=== PATIENT | male | born 1970 | race Caucasian/White ===

== ENCOUNTER 2016-12-11 20:28 | Emergency (ER) ==
[2016-12-11 20:44] LABS: URINE MICRO REVIEW NEEDED? NO; URINE SOURCE VOIDED
[2016-12-11 20:49] LABS: BILIRUBIN URINE NEGATIVE (NEGATIVE); BLOOD URINE TRACE (NEGATIVE); COLOR YELLOW; GLUCOSE URINE 300 mg/dL (NEGATIVE); LEUKOCYTES URINE TRACE (NEGATIVE); NITRITE URINE NEGATIVE (NEGATIVE); PROTEIN URINE 300 mg/dL (NEGATIVE); SP GRAVITY URINE 1.012; TURBIDITY URINE CLEAR (CLEAR); UROBILINOGEN URINE NORMAL (NORMAL)
[2016-12-11 20:50] LABS: UR EPITHELIAL CELLS <10 /HPF (<10); URINE BACTERIA 1+ /HPF; URINE RBC <10 /HPF (<10)
[2016-12-11] MEDS ORDERED: KEFLEX PO ONE (22:14)
[2016-12-11] MEDS ORDERED: PYRIDIUM PO ONE (22:14)
--- NOTE | 2016-12-11 22:16 | PROVIDER DOCUMENTATION ---
HPI-Male Problem - General Chief Complaint: Flank Pain Stated Complaint: KIDNEY PAIN, NAUSEA Time Seen by Provider: 12/11/16 22:04 Source: patient Allergies/Adverse Reactions: Patient Allergies Allergy/AdvReac Type Severity Reaction Status Date / Time No Known Allergies Allergy Verified 12/11/16 22:26 Home Medications: Home Medication List Medication Instructions Recorded Confirmed Last Taken Type Home Meds Unobtainable 12/11/16 12/11/16 Unknown History - History of Present Illness-Male Nature of Presenting Problem: pt has complaned of slowly worsening achy discomfort over both his kidneys over the last 2-3 weeks then developing painful frequent urination. He has felt slightly nauseous without vomiting. No chills or fever. He has some suprapubic discomfort Review of Systems - Adult - REVIEW OF SYSTEMS - ADULT Constitutional: denies: chills, fever Eyes: denies: discharge Ears, Nose, Mouth & Throat: denies: ear pain, sinus problem, throat pain Cardiovascular: denies: chest pain, edema, orthopnea, palpitations, syncope Respiratory: denies: cough, shortness of breath Gastrointestinal: reports: see HPI, nausea. denies: constipation, diarrhea, vomiting Genitourinary: reports: dysuria, frequency, flank pain. denies: discharge, hematuria, incontinence, urinary retention Musculoskeletal: reports: no symptoms reported Integumentary: denies: rash Neurological: denies: headache/migraines, numbness Psychiatric: reports: no symptoms reported Endocrine: reports: no symptoms reported Hematologic/Lymphatic: reports: no symptoms reported Allergic/Immunologic: reports: no symptoms reported All Other Systems: Reviewed and Negative Past History - Adult - PAST MEDICAL HISTORY-ADULT Review of Records: reports: Old Records Reviewed, Nursing Assessment Review, Medications Reviewed, Social history reviewed & non-contributory. - IMMUNIZATION STATUS Childhood Immunizations: See Nurse Assessment Flu Vaccine: See Nurse Assessment - FAMILY HISTORY Family History: reviewed, not pertinent - SOCIAL HISTORY Smoking: non-smoker Substance Use: none/never Living Situation: family Physical Exam-General - PHYSICAL EXAM-ADULT Initial Vital Signs Reviewed: Yes - CONSTITUTIONAL General Appearance: appears well, alert, no apparent distress - EYES Eyes: pink conjunctivae. negative: scleral icterus - HEAD, EARS, NOSE, MOUTH & THROAT HENMT: normocephalic/atraumatic - NECK Neck: non-tender, full range of motion, supple, normal inspection - RESPIRATORY Respiratory: chest non-tender, lungs clear, normal breath sounds, no pleuratic chest pain, no respiratory distress, no accessory muscle use - CARDIOVASCULAR Cardiovascular: regular rate, rhythm, no edema, no murmur - GASTROINTESTINAL (ABDOMEN) Abdominal Exam: normal bowel sounds, non tender, soft, no organomegaly, no pulsatile mass - MUSCULOSKELETAL Back Exam: normal inspection, no vertebral tenderness, CVA tenderness (mild bilat). negative: no CVA tenderness Extremity: normal range of motion, non-tender, normal gait, normal inspection, no pedal edema, no calf tenderness - SKIN Integumentary: normal color, normal turgor, warm/dry - NEUROLOGIC Neurologic: grossly normal, no motor/sensory deficits - PSYCHIATRIC Psych/Mental Status: normal mood/affect, normal thought content, normal thought process, oriented x 3 Progress - PLAN OF CARE/RESULTS Progress/Plan/Lab Results: Laboratory Tests 12/11/16 20:38 Urine Source VOIDED Urine Color YELLOW Urine Turbidity CLEAR Urine pH 6.0 Ur Specific [place] 1.012 Urine Protein 300 A Ur Glucose (Stick) 300 A Ur Ketones (Stick) NEGATIVE Urine Blood TRACE A Urine Nitrite NEGATIVE Urine Bilirubin NEGATIVE Urobilinogen Dipstick NORMAL Urine Leukocytes TRACE A Urine WBC (Auto) 10-20 A Urine RBC (Auto) <10 U Epithel Cells (Auto) <10 Urine Bacteria (Auto) 1+ Orders Category Date Time Status RENAL STONE SEARCH [CT] Stat Exams 12/11/16 21:36 Taken URINALYSIS [URINALYSIS] Stat Lab 12/11/16 20:38 Completed CephALEXIN [Keflex] Med 12/11/16 22:14 Discontinued 500 mg PO NOW ONE Phenazopyridine [Pyridium] Med 12/11/16 22:14 Discontinued 200 mg PO NOW ONE Vital Signs Temp Pulse Resp BP Pulse Ox 12/11/16 22:23 98.8 F 80 18 171/92 98 12/11/16 20:34 98.7 F 91 H 16 152/95 100 No Known Allergies Allergy (Verified 12/11/16 22:26) Home Meds Unobtainable 12/11/16 Laboratory 12/11/16 20:38 Urine Source VOIDED Urine Color YELLOW Urine Turbidity CLEAR Urine pH 6.0 Ur Specific [place] 1.012 Urine Protein 300 A Ur Glucose (Stick) 300 A Ur Ketones (Stick) NEGATIVE Urine Blood TRACE A Urine Nitrite NEGATIVE Urine Bilirubin NEGATIVE Urobilinogen Dipstick NORMAL Urine Leukocytes TRACE A Urine WBC (Auto) 10-20 A Urine RBC (Auto) <10 U Epithel Cells (Auto) <10 Urine Bacteria (Auto) 1+ Departure - Departure Time of Disposition Order: 22:15 DIAGNOSIS: UTI (urinary tract infection) Qualifiers: Urinary tract infection type: site unspecified Hematuria presence: without hematuria Qualified Code(s): N39.0 - Urinary tract infection, site not specified Disposition: HOME 01 Certified Medical Emergency: Emergent Condition: Good Additional Instructions: ED Follow Up Instructions: You have been treated by a care provider in the Emergency Department. These instructions are being provided to you so you can have an understanding of how to care for yourself upon discharge. Upon discharge from the Emergency Department, you are responsible for making arrangements for follow-up care by a physician of your choice. Take all prescribed medications as directed. Return to the Emergency Department immediately for any new or worsening symptoms. You may call the Physician Referral phone number at [phone] to obtain a list of Physicians who are taking new patients. Referrals: None,PCP [Primary Care Provider] - Instructions: Urinary Tract Infection, [id number]
[2016-12-11 22:24] VITALS: BP 171/92
--- NOTE | 2016-12-12 07:58 | Diag Imaging Result Document ---
PROCEDURE NAME: RENAL STONE SEARCH - 12/11/2016 CT ABDOMEN AND PELVIS: A CT dose reduction protocol was used. COMPARISON: None. FINDINGS: There is extensive subcutaneous edema all throughout the lower anterior abdominal body wall. The cause is unclear. Urinary bladder vo are mildly thickened, nonspecific. Bladder inflammation is possible. There are appendectomy changes. There is extensive diverticulosis of the descending and sigmoid colon. No bowel obstruction or inflammation. No radiodense renal stones. No hydronephrosis or hydroureter. There is a small 1 cm left renal cyst. Bony structures are intact. IMPRESSION: 1. Thickened urinary bladder vo which may suggest cystitis. Correlate clinically. 2. Negative for renal stone disease. 3. Significant diverticulosis coli. 4. Significant subcutaneous edema of the anterior body wall. This may suggest cellulitis. Correlate clinically. [facility]
== END 2016-12-11 22:30 | disposition home or self-care (01) ==
LOC: ED 20:28
DX: N39.0 Urinary tract infection, site not specified (principal); R30.0 Dysuria; R35.0 Frequency of micturition; R10.9 Unspecified abdominal pain
CPT/HCPCS: 74176; 81001

== ENCOUNTER 2018-11-19 09:50 | Inpatient (IN) ==
[2018-11-19] MEDS ORDERED: ZOFRAN IV ONE (10:13)
[2018-11-19] MEDS ORDERED: DILAUDID IV ONE (10:13)
[2018-11-19] MEDS ORDERED: APRESOLINE IV ONE (10:18)
[2018-11-19 10:29] LABS: BASO# 0.04 X1000 (0.0-0.2); BASO% 0.4 % (0.0-0.8); EOS# 0.47 X1000 (0.0-0.7); EOS% 5.1 % (0.0-10.0); HEMATOCRIT 29.3 % (42.0-52.0); HEMOGLOBIN 9.5 g/dL (14.0-18.0); IMM GRAN# 0.02 X1000 (0.0-0.04); IMM GRAN% 0.2 % (0.0-0.5); LYMPH# 1.27 X1000 (1.2-3.4); LYMPH% 13.8 % (20.5-51.1); MCH 30.4 PG (27-31); MCHC 32.4 g/dL (33-37); MCV 93.6 FL (81-99); MONO# 0.72 X1000 (0.11-0.59); MONO% 7.8 % (1.7-9.3); MPV 10.9 FL (7.4-10.4); NEUT# 6.69 X1000 (1.4-6.5); NEUT% 72.7 % (42.2-75.2); PLT 244 X1000 (130-400); RBC 3.13 XMIL (4.7-6.1); RDW 16.5 % (11.5-14.5); WBC 9.21 X1000 (4.8-10.8)
[2018-11-19 10:49] LABS: ALB/GLOB RATIO 1.1; ALBUMIN 4.1 g/dL (3.5-5.0); CALCIUM 8.7 mg/dL (8.8-10.2); CREATININE 4.7 mg/dL (0.7-1.2); POTASSIUM 3.9 mmol/L (3.5-5.1); TOTAL BILIRUBIN 0.48 mg/dL (0.20-1.00); TOTAL PROTEIN 7.9 g/dL (6.3-8.3)
--- NOTE | 2018-11-19 11:30 | Diag Imaging Result Doc PS360 ---
EXAM: CT ABDOMEN/PELVIS W/O CONTRAST INDICATION: LLQ pain/tenderness TECHNIQUE: This exam was performed using automated exposure control, adjustment of mA or kV according to patient size, and/or use of iterative reconstruction technique. COMPARISON: 09/16/2018 FINDINGS: There are stable emphysematous changes at the lung bases. There are trace effusions at both lung bases with adjacent atelectasis that is milder than the previous study. The liver, gallbladder, spleen, pancreas, and adrenal glands are unremarkable. There is a stable small cyst at the upper pole of the left kidney. The kidneys are unremarkable, otherwise. The urinary bladder is nondistended. There are focal inflammatory changes and focal wall thickening involving the proximal sigmoid colon that appears to emanate from a cluster of diverticula consistent with diverticulitis. It is in the same location as the previous study but it is not as severe. There is no pericolonic abscess identified and there is no free abdominal gas to indicate perforation. The remainder of the GI tract is essentially unremarkable. IMPRESSION: 1.Sigmoid colonic diverticulitis with no evidence of perforation as detailed above. 2.Other incidental/nonacute findings detailed above. Electronically signed by Sam Post 11/19/2018 11:28 AM
[2018-11-19] MEDS ORDERED: NORVASC PO ONE (12:00)
[2018-11-19] MEDS ORDERED: COREG PO ONE (12:00)
[2018-11-19] MEDS ORDERED: TYLENOL PO PRN (12:07)
[2018-11-19] MEDS ORDERED: ZOFRAN IV PRN (12:07)
[2018-11-19] MEDS ORDERED: MORPHINE IV PRN (12:30)
[2018-11-19] MEDS: PROTONIX IV SCH ×2 (12:35→23:23)
[2018-11-19] MEDS: ZOSYN 2.25 GM in NS 50 ML IV SCH ×2 (12:45→21:46)
[2018-11-19] MEDS: APRESOLINE IV PRN (14:38)
--- NOTE | 2018-11-19 14:45 | PROVIDER DOCUMENTATION ---
This chart was entered by Denisse Blum Scribe, acting as scribe for Manuel Severino CRNP. HPI-Abdominal Pain/GI Problem - General Chief Complaint: Abdominal Pain Stated Complaint: ABD PAIN Time Seen by Provider: 11/19/18 10:04 Source: patient Allergies/Adverse Reactions: Patient Allergies Allergy/AdvReac Type Severity Reaction Status Date / Time No Known Allergies Allergy Verified 08/22/18 04:36 Home Medications: Home Medication List Medication Instructions Recorded Confirmed Last Taken Type Insulin Aspart [Novolog] 30 unit SQ AC 05/30/18 09/17/18 09/15/18 History Insulin Detemir [Levemir] 50 units SQ QHS 05/30/18 09/17/18 09/15/18 History Losartan [Cozaar] 100 mg PO QHS 05/30/18 09/17/18 09/15/18 History Acetaminophen [Tylenol] 650 mg PO Q6H PRN PRN tablet 06/01/18 09/17/18 Unknown Rx Amlodipine [Norvasc] 10 mg PO DAILY #30 tab 09/18/18 Unknown Rx Carvedilol [Coreg] 6.25 mg PO Q12HR #30 tab 09/18/18 Unknown Rx Levofloxacin 500 mg PO Q48H #3 tab 09/18/18 Unknown Rx Metronidazole [Flagyl] 500 mg PO BID #12 tab 09/18/18 Unknown Rx Simethicone Chew [Mylicon] 80 mg PO 4XDAY PRN PRN #12 tab 09/18/18 Unknown Rx - History of Present Illness-ABD Nature of Presenting Problems: 48 yom presents to the ed with LLQ pain and diarrhea x 2 days. He denies fever or any other symptoms and is non-toxic in appearance. Started dialysis today but did not complete due to pain. Abdominal Pain Onset Location: reports: LLQ Pain Radiation: reports: other (suprapubic) Quality of Pain: reports: aching, cramping Severity in ED: reports: moderate Onset/Duration: reports: 2 days ago Timing: reports: still present Activities at Onset: reports: light activity Modifying Factors: improves with: nothing Associated Symptoms: reports: diarrhea, nausea. denies: back/neck pain, chest pain, cough, fever/chills, headaches, muscle aches, syncope, vomiting, weakness Last BM: this morning Dark Stools Present?: reports: none noticed Rectal Bleeding: reports: none # of Diarrhea Episodes: 3 Rectal Pain: reports: none # of Vomiting Episodes: 0 Emesis Description: reports: none Bruising or Bleeding Gums?: No Similar Symptoms Previously?: No Recently seen or treated by another doctor?: No Review of Systems - Adult - REVIEW OF SYSTEMS - ADULT Constitutional: denies: chills, fever Eyes: denies: blurred vision, double vision Ears, Nose, Mouth & Throat: reports: no symptoms reported Cardiovascular: denies: chest pain, palpitations Respiratory: denies: cough, dyspnea on exertion, shortness of breath, wheezing Gastrointestinal: reports: see HPI, abdominal pain, diarrhea, nausea. denies: vomiting Genitourinary: reports: no symptoms reported Musculoskeletal: reports: no symptoms reported Integumentary: reports: no symptoms reported Neurological: denies: dizziness/vertigo, headache/migraines Psychiatric: reports: no symptoms reported Endocrine: reports: no symptoms reported Hematologic/Lymphatic: reports: no symptoms reported Allergic/Immunologic: reports: no symptoms reported All Other Systems: Reviewed and Negative Past History - Adult - PAST MEDICAL HISTORY-ADULT Review of Records: reports: Old Records Reviewed, Nursing Assessment Review, Medications Reviewed, Social history reviewed & non-contributory. Major Childhood Illnesses: reports: denies history Cardiovascular: reports: HTN, hyperlipidemia Respiratory: reports: denies history Gastrointestinal: reports: pancreatitis Genitourinary: reports: dialysis, ESRD, kidney disease Musculoskeletal: reports: denies history Hand Dominance: Right Handed Neurological: reports: denies history Psychiatric: reports: denies history Endocrine/Immune: reports: Diabetes Diabetes Type: Type 2 Other Conditions: reports: denies history - PRIOR SURGERIES/PROCEDURES Surgical/Procedure History: reports: reviewed, not pertinent, appendectomy, hernia repair - IMMUNIZATION STATUS Childhood Immunizations: See Nurse Assessment Flu Vaccine: See Nurse Assessment - FAMILY HISTORY Family History: reviewed, not pertinent - SOCIAL HISTORY Smoking: non-smoker Substance Use: alcohol Alcohol Use Frequency: occasionally Number of drinks per typical drinking period:: 3-4 drinks Living Situation: family Physical Exam-General - PHYSICAL EXAM-ADULT Initial Vital Signs Reviewed: Yes (bp noted 251/107) - CONSTITUTIONAL General Appearance: appears well, alert, no apparent distress. negative: lethargic, slow to respond - EYES Eyes: PERRL/EOMI, pink conjunctivae. negative: sclera injected, scleral icterus , sunken eyes - HEAD, EARS, NOSE, MOUTH & THROAT HENMT: normocephalic/atraumatic, moist mucous membranes, normal ENT inspection - NECK Neck: non-tender, full range of motion, supple, normal inspection - RESPIRATORY Respiratory: chest non-tender, lungs clear, normal breath sounds, no respiratory distress, no accessory muscle use - CARDIOVASCULAR Cardiovascular: normal peripheral pulses, regular rate, rhythm, no gallop, no murmur - GASTROINTESTINAL (ABDOMEN) Abdominal Exam: normal bowel sounds, soft, no pulsatile mass, abnormal bowel sounds, tenderness (LLQ). negative: distended, guarding, rigid, rebound - LYMPHATIC Lymphatic: no adenopathy - MUSCULOSKELETAL Back Exam: normal inspection, no CVA tenderness Extremity: normal range of motion, non-tender, normal gait, normal inspection, other ([place] intact to right arm where graft was de-clotted recently. Pt currently has port in right chest for dialysis.) - SKIN Integumentary: normal color, normal turgor, warm/dry - NEUROLOGIC Neurologic: grossly normal, no motor/sensory deficits - PSYCHIATRIC Psych/Mental Status: normal mood/affect, normal thought content, normal thought process, oriented x 3 Progress - PLAN OF CARE/RESULTS Progress/Plan/Lab Results: Vital Signs - 8 hr 11/19/18 09:52 Temperature 98.6 F Pulse Rate 100 H Respiratory Rate 20 Blood Pressure 251/107 O2 Sat by Pulse Oximetry 100 Orders Category Date Time Status Saline Loc DIRECTED Care 11/19/18 09:56 Active NPO Diet 11/19/18 09:56 Active AMYLASE [CHEM] Stat Lab 11/19/18 09:56 Uncollected CBC WITH ELECTRONIC DIFF [HEME] Stat Lab 11/19/18 09:56 Uncollected COMPREHENSIVE METABOLIC PANEL [CHEM] Stat Lab 11/19/18 09:56 Uncollected LIPASE [CHEM] Stat Lab 11/19/18 09:56 Uncollected URINALYSIS W/POSS RFLX CULT [URINALYSIS] Stat Lab 11/19/18 09:56 Uncollected Discussed results and admission plan with pt who is in agreement. States pain has improved since meds. 1205- Discussed case with Dr. Blanco who is aware pt is being admitted for diverticulitis and that he did not complete dialysis this morning. recommends Zosyn 2.25 g Q8H while in the hospital and states that based on current renal function and potassium, pt does not need to go back to dialysis today. Pt states unable to complete dialysis this morning due to illness. Result Diagrams: 11/19/18 10:16 11/19/18 10:16 - REASSESSMENT Reassessment #1 Time Reassessed: 11:40 Status: improving - CT/MRI 1 CT Study: Abdomen, Pelvis Impression: See EMR Report (EXAM: CT ABDOMEN/PELVIS W/O CONTRAST INDICATION: LLQ pain/tenderness TECHNIQUE: This exam was performed using automated exposure control, adjustment of mA or kV according to patient size, and/or use of iterative reconstruction technique. COMPARISON: 09/16/2018 FINDINGS: There are stable emphysematous changes at the lung bases. There are trace effusions at both lung bases with adjacent atelectasis that is milder than the previous study. The liver, gallbladder, spleen, pancreas, and adrenal glands are unremarkable. There is a stable small cyst at the upper pole of the left kidney. The kidneys are unremarkable, otherwise. The urinary bladder is nondistended. There are focal inflammatory changes and focal wall thickening involving the proximal sigmoid colon that appears to emanate from a cluster of diverticula consistent with diverticulitis. It is in the same location as the previous study but it is not as severe. There is no pericolonic abscess identified and there is no free abdominal gas to indicate perforation. The remainder of the GI tract is essentially unremarkable. IMPRESSION: 1.Sigmoid colonic diverticulitis with no evidence of perforation as detailed above. 2.Other incidental/nonacute findings detailed above. Electronically signed by Sam Post 11/19/2018 11:28 AM 11/19/18 1128) - CONSULTS/PCP/HOSPITALIST Notification #1 *Consult/PCP/Hospitalist*: NORI Clark CORPORATE RESPONSIBILITY OFFICER Consult Disposition: Admit (Recommends calling Dr. Blanco for antibiotic recommendations. Dr. Blanco paged at [phone].) #2 Consult: Dr. Blanco Time Discussed: 12:05 Consult Disposition: other (Recommendations listed above in progress.) Departure - Departure Date of Disposition Decision: 11/19/18 Time of Disposition Decision: 11:50 DIAGNOSIS: Acute diverticulitis Renal failure Qualifiers: Renal failure chronicity: chronic Chronic kidney disease stage: on chronic dialysis Qualified Code(s): N18.6 - End stage renal disease; Z99.2 - Dependence on renal dialysis Disposition: ADMITTED INPATIENT 09 Certified Medical Emergency: Emergent Condition: Stable - Critical Care Note This patient required my direct & personal management of CC.: No Attestation - Physician/ EMILY Attestation Patient care was provided by Advanced Practice Provider:: Yes Advanced Practice Provider:: Manuel Severino Advanced Practice Provider documentation review:: The Mid-level provider documentation, treatment plan and medical decision making was reviewed by the physician who agrees with all treatment and medical decision making by the MLP. The physician spent face to face time with patient:: No Advanced Practice Provider documentation review:: Supervising physician onsite and consulted in the evaluation and care of this patient. The physician did not have a face to face encounter with the patient. This chart was documented by the indicated scribe, (Denisse Blum Scribe) and accurately reflects the services I performed and decisions made by me, Manuel Severino CRNP, as attested by the provider's signature.
--- NOTE | 2018-11-19 16:31 | HISTORY AND PHYSICAL ---
PRIMARY CARE PROVIDER: No one. CHIEF COMPLAINT: Left lower quadrant abdominal pain with normal color diarrhea for 3 to 4 days. HISTORY OF PRESENT ILLNESS: Mr. Parvez Pastor is a 48-year-old male with a medical history of end-stage renal disease on hemodialysis Thursday, Thursday, and Thursday and also with hypertension and diabetes who presents with the complaint of 3 to 4 days' of left lower quadrant abdominal pain and diarrhea. The diarrhea has been normal in color. He denies any nausea or vomiting. Imaging shows that he has a sigmoid colonic diverticulitis and no perforation so we will admit for treatment of that. He states that the last time he ate was a biscuit this morning but has just been having issues with that pain. We will just place him on a clear liquid diet, start him on renal dosed Zosyn, and consult Dr. Kurtz. PAST MEDICAL HISTORY: 1. Recent acute pancreatitis in August of 2018 where he presented with 145 on his lipase level. It had dropped prior to discharge then to 39. It is back up to 132. 2. Diabetes mellitus type 2 on insulin. 3. Hypertension, uncontrolled. 4. End-stage renal disease on dialysis Thursday, Thursday, and Thursday. He states that he still makes trace urine. SURGICAL HISTORY: 1. Appendectomy. 2. Inguinal hernia repair. 3. Umbilical hernia repair. 4. Right shoulder repair. 5. Fistula of the right forearm. 6. Right forearm thrombectomy of the AV fistula. 7. Right chest jugular hemodialysis catheter placed. SOCIAL HISTORY: Denies tobacco, alcohol, or illicit drug use. FAMILY HISTORY: Father: Unknown type of cancer. in 1990. Mother: Unknown about mother. ALLERGIES: No known drug allergies. HOME MEDICATIONS: Home medications still have not been reconciled. REVIEW OF SYSTEMS: A 14 point review of systems was completed and all were negative except for those mentioned above in the HPI. He denies any fever or chills. PHYSICAL EXAMINATION: VITAL SIGNS: Temperature is 98.9, heart rate 79, respiratory rate 15, blood pressure 197/96, and saturation 99% on room air. No accessory muscle use or work of breathing noted. HEENT: Atraumatic, normocephalic. Pupils are equal, round, and reactive to light. Extraocular movements are intact. Mucous membranes are moist. NECK: Trachea is midline. CARDIOVASCULAR: S1, S2. Regular rate and rhythm. No rubs, gallops, or murmurs. No lower extremity edema; +2 dorsalis and radial pulses. Positive bruit and thrill in the right forearm. Negative for JVD or carotid bruits. PULMONARY: Clear to auscultate bilateral breath sounds. No accessory muscle use or work of breathing noted. GI: Soft. Tender in the left lower quadrant. Positive bowel sounds times 4. EXTREMITIES: Moves all extremities equally with full range of motion. NEURO: Alert and oriented times 3. Follows commands. Sensory is intact. SKIN: Warm, dry, and intact. Right forearm AV fistula, status post thrombectomy. Incisional site is dry and intact with cece. LABORATORY DATA: White blood cells 9,000, hemoglobin 9.5, hematocrit 29.3, and platelet count 244. Sodium is 138, potassium 3.9, BUN 18, creatinine 4.7, glucose 229, bilirubin 0.48, AST 9, ALT 9, amylase 143, and lipase 132. IMAGING: Abdominopelvic CT: Sigmoid colonic diverticulitis and no evidence of perforation. Trace effusions at both lung bases. Stable small cyst at the left upper pole of the left kidney. ASSESSMENT AND PLAN: 1. Acute diverticulitis of the proximal sigmoid colon. He will be on renal dosed Zosyn. We will do p.o. fluids for now. 2. End-stage renal disease on hemodialysis Thursday, Thursday, and Thursday. Only did partial dialysis today. E.R. Staff notified Dr. Kurtz and is he is okay with the antibiotic choice and the patient does not have to finish dialysis today. We will consult Dr. Kurtz. 3. History of acute pancreatitis. His lipase is elevated again. We will add another lipase for in the morning and make sure it is not trending up. 4. Uncontrolled hypertension. He states that he did not take his antihypertensives this morning. It also is unclear what medications he takes so reviewing what medications he has had filled. In August he had his amlodipine 5 mg filled and he had his Coreg 6.25 mg filled and that is all he has had. So, I gave him a 1 time dose of 6.25 mg of Coreg, I gave him a dose of amlodipine 10 mg, a 1 time IV push of hydralazine 10 mg and started him on p.r.n. hydralazine, amlodipine daily, Coreg twice daily, and we will do every 4 hour blood pressure checks or vital signs. 5. Deep vein thrombosis prophylaxis with sequential compression devices. Dictated by JEFFERSON Olmos for Alec Breen MD Addendum: Patient seen and examined by myself. Agree with JEFFERSON note. It reflects my assessment and plan. Patient being admitted to hospital for acute diverticulitis. Will start Zosyn renally dosed. Will check CBC daily and will go from there. cc: JEFFERSON Olmos MD [facility]
[2018-11-19] MEDS: HUMULIN R SUBQ SCH ×2 (17:47→21:46)
[2018-11-19] MEDS ORDERED: COREG PO SCH (21:00)
[2018-11-19] MEDS: SODIUM CHLORIDE 0.9% INJ SCH (23:23)
--- NOTE | 2018-11-19 23:39 | GENERAL SURGERY CONSULTATION ---
DATE: 11/19/2018 REQUESTING PHYSICIAN: Hospitalist. REASON FOR CONSULTATION: Diverticulitis. HISTORY OF PRESENT ILLNESS: A 48-year-old gentleman, well known to my group, who has history of end-stage renal disease. He recently had a declotting procedure by my partner, Dr. Diana, for an AV fistula issue. He now presents with left lower quadrant abdominal pain that started 3 to 4 days ago. He has had a history of diverticulitis and came in, had a CT scan that did show sigmoid diverticulitis without perforation. He is currently still in some pain but he has been started on antibiotics. I have been asked to weigh an opinion. PAST MEDICAL HISTORY: 1. History of pancreatitis. 2. Diabetes mellitus type 2. 3. Hypertension. 4. End-stage renal disease. PAST SURGICAL HISTORY: 1. Appendectomy. 2. Inguinal hernia repair. 3. Umbilical hernia repair. 4. Right shoulder surgery. 5. Fistula in right arm. 6. Recent thrombectomy of AV fistula. 7. Right chest hemodialysis catheter placement. SOCIAL HISTORY: Denies alcohol, tobacco, or illicit drugs. FAMILY HISTORY: Reviewed with patient. ALLERGIES: None. HOME MEDICATIONS: Reviewed in the [facility]. REVIEW OF SYSTEMS: A full 10-point review of systems obtained, negative except as specified in HPI. PHYSICAL EXAMINATION: Vital Signs: Patient is currently afebrile. Vital signs are stable. General: No acute distress. Alert, interactive, male, looks stated age. HEENT: Normocephalic, atraumatic. Pupils equal, round, reactive to light. Mucous membranes moist. Neck: Supple. Trachea midline. Cardiovascular: Regular rate and rhythm. Lungs: Grossly clear. Abdomen: Soft. Some tenderness to palpation left lower quadrant. No peritoneal signs. Extremities: Moves all extremities. He does have recent surgery in his right arm, in the forearm. There is flow noted. Vascular: As noted above. Skin: As noted above. LABORATORY: Reviewed. White blood cell count is 9, 9, hematocrit 29, platelet count 244,000 6. IMAGING: CT scan independently reviewed and radiology report reviewed. ASSESSMENT AND PLAN: A 48-year-old gentleman status post thrombectomy, now with diverticulitis. Diverticulitis. At this time, agree with antibiotics and monitoring. Overall his wound from his dialysis access looks okay. He does have a thrill right now in it. Monitor it. I appreciate the consult. cc: Kris Cannon MD
[2018-11-20] MEDS: ZOSYN 2.25 GM in NS 50 ML IV SCH ×3 (04:15→21:50)
[2018-11-20 05:55] LABS: BILIRUBIN URINE NEGATIVE (NEGATIVE); BLOOD URINE NEGATIVE (NEGATIVE); COLOR YELLOW; GLUCOSE URINE 1000 mg/dL (NEGATIVE); KETONE URINE NEGATIVE (NEGATIVE); LEUKOCYTES URINE NEGATIVE (NEGATIVE); NITRITE URINE NEGATIVE (NEGATIVE); PH URINE 8.5; PROTEIN URINE 600 mg/dL (NEGATIVE); SP GRAVITY URINE 1.006; TURBIDITY URINE CLEAR (CLEAR); URINE SOURCE CLEAN CATCH; UROBILINOGEN URINE NORMAL (NORMAL)
[2018-11-20 05:57] LABS: UR EPITHELIAL CELLS <10 /HPF (<10); URINE BACTERIA NEGATIVE /HPF; URINE RBC <10 /HPF (<10); URINE WBC <10 /HPF (<10)
[2018-11-20] MEDS: HUMULIN R SUBQ SCH ×4 (06:37→21:51)
[2018-11-20 06:48] LABS: BASO# 0.07 X1000 (0.0-0.2); BASO% 0.8 % (0.0-0.8); EOS# 0.47 X1000 (0.0-0.7); EOS% 5.3 % (0.0-10.0); HEMATOCRIT 24.4 % (42.0-52.0); HEMOGLOBIN 7.9 g/dL (14.0-18.0); IMM GRAN# 0.02 X1000 (0.0-0.04); IMM GRAN% 0.2 % (0.0-0.5); LYMPH# 1.22 X1000 (1.2-3.4); LYMPH% 13.8 % (20.5-51.1); MCH 30.7 PG (27-31); MCHC 32.4 g/dL (33-37); MCV 94.9 FL (81-99); MONO# 0.55 X1000 (0.11-0.59); MONO% 6.2 % (1.7-9.3); MPV 10.6 FL (7.4-10.4); NEUT# 6.49 X1000 (1.4-6.5); NEUT% 73.7 % (42.2-75.2); PLT 213 X1000 (130-400); RBC 2.57 XMIL (4.7-6.1); RDW 16.3 % (11.5-14.5); WBC 8.82 X1000 (4.8-10.8)
--- NOTE | 2018-11-20 06:48 | GENERAL SURGERY PROGRESS NOTE ---
DATE: 11/20/2018 SUBJECTIVE: The patient seems to be feeling better. He is not having much pain. He is still sore in his arm though. OBJECTIVE: VITAL SIGNS: Patient is currently afebrile. His vital signs are stable. GENERAL: No acute distress. HEENT: Normocephalic, atraumatic. Pupils equal, round and reactive to light. Mucous membranes moist. Oropharynx benign. NECK: Supple. Trachea midline. CARDIOVASCULAR: Regular rate and rhythm. LUNGS: Clear. ABDOMEN: Soft, less tender to palpation from previous exams. No peritoneal signs. EXTREMITIES: Thrill noted in the right upper extremity. VASCULAR: All extremities perfused. NEUROLOGICAL: Grossly intact. SKIN: Wound on the right arm healing. LABORATORY DATA: None this morning as of yet. ASSESSMENT AND PLAN: 48-year-old gentleman with diverticulitis. Diverticulitis: At this time, we will advance him to a full liquid diet. He seems to be doing well. Otherwise, continue current treatment. cc: Kris Cannon MD
[2018-11-20 06:57] LABS: INR 1.06; PROTIME 14.6 Seconds (11.0-16.0)
[2018-11-20 06:58] LABS: PTT 37.4 Seconds (22.3-41.8)
[2018-11-20 07:12] LABS: ALB/GLOB RATIO 1.1; ALBUMIN 3.4 g/dL (3.5-5.0); CALCIUM 8.5 mg/dL (8.8-10.2); CREATININE 7.5 mg/dL (0.7-1.2); MAGNESIUM 1.9 mg/dL (1.5-2.7); POTASSIUM 4.7 mmol/L (3.5-5.1); TOTAL BILIRUBIN 0.58 mg/dL (0.20-1.00); TOTAL PROTEIN 6.4 g/dL (6.3-8.3)
[2018-11-20] MEDS ORDERED: NS 2,000 ML MISC PRN (08:24)
[2018-11-20] MEDS ORDERED: HEPARIN IV PRN (08:24)
[2018-11-20 09:49] LABS: HEMOGLOBIN A1C 7.6 % (4.8-6.0)
--- NOTE | 2018-11-20 12:38 | PROGRESS NOTE ---
DATE: 11/20/2018 SUBJECTIVE: Patient reports feeling fine. Denies any fever or chills. OBJECTIVE: Vital Signs: Temperature 98.1 degrees, heart rate 76, respiratory rate 20, blood pressure 166/90, and O2 saturation 97% on room air. General: This is a chronically ill-looking 48-year-old male lying in bed in no acute distress. Cardiovascular: S1, S2 heard. No murmurs, gallops, or rubs. Regular rate and rhythm. Respiratory: Clear bilaterally to auscultation. No work of breathing or using accessory muscles. Abdomen: Soft, nontender to palpation. Bowel sounds present. No organomegaly. The tenderness noted in the left lower quadrant is much better today. Extremities: No clubbing, cyanosis, or edema. Peripheral pulses present in both legs. Neurological: Patient alert and oriented x3. Moves all 4 extremities. LABORATORY DATA: Hemoglobin 7.9. Normal white cell count. ASSESSMENT AND PLAN: 1. Acute diverticulitis of the proximal sigmoid colon. The patient is on Zosyn renally dosed. The patient clinically feeling better. We will continue with the same management. 2. End-stage renal disease on hemodialysis. Dr. Kurtz is following this patient. 3. Uncontrolled hypertension. At this point, blood pressure is mildly elevated. He is on Coreg and amlodipine. I think at this point I will increase the doses of Coreg 12.5 q.12 hours, and we will go from there. 4. Disposition. We will continue to monitor this patient closely. If the patient is feeling better on Thursday, then we will let him go. cc: Alec Breen MD
[2018-11-20] MEDS: PROTONIX IV SCH (14:02)
[2018-11-20] MEDS: SODIUM CHLORIDE 0.9% INJ SCH (14:02)
[2018-11-20] MEDS: NORVASC PO SCH (14:03)
--- NOTE | 2018-11-20 16:44 | NEPHROLOGY PROGRESS NOTE ---
DATE: 11/20/2018 SUBJECTIVE: He used his catheter for dialysis today because his arm remains swollen and tender. His abdominal pain is better and he has been able to tolerate clear liquids. OBJECTIVE: Vital Signs: Blood pressure 166/90, heart rate 76, respirations 20, afebrile. Generally: No acute distress. Skin: Warm and dry. Eyes: Conjunctivae are pink. Neck: Neck veins are not distended. Heart: Regular. Lungs: Equal. No crackles. Abdomen: Minimally tender. Bowel sounds are present. Extremities: Have right upper extremity edema. His fistula remains very firm, but normal bruit. Arm is diffusely edematous. IMPRESSION: Chronic kidney disease 5D. He dialyzed using his catheter today because of arm pain. We will keep his arm elevated. We will attempt to arrange for outpatient assessment at the [facility] as soon as possible. Okay for discharge when he is otherwise ready to be discharged from the colon perspective. He may well need partial colectomy because of recurrent diverticulitis. cc: Paul Kurtz MD
[2018-11-20] MEDS ORDERED: COZAAR PO SCH (21:00)
[2018-11-20] MEDS ORDERED: LEVEMIR SUBQ SCH (21:00)
[2018-11-20] MEDS: COREG PO SCH (21:50)
[2018-11-21] MEDS: APRESOLINE IV PRN (00:51)
[2018-11-21] MEDS: SODIUM CHLORIDE 0.9% INJ SCH (04:59)
[2018-11-21] MEDS: ZOSYN 2.25 GM in NS 50 ML IV SCH (04:59)
[2018-11-21] MEDS: PROTONIX IV SCH (04:59)
[2018-11-21] MEDS: HUMULIN R SUBQ SCH (06:34)
--- NOTE | 2018-11-21 06:43 | GENERAL SURGERY PROGRESS NOTE ---
DATE: 11/21/2018 SUBJECTIVE: Patient doing okay. He tolerated his GI soft diet. He had a bowel movement yesterday. His pain is much better compared to admission. OBJECTIVE: Vital Signs: Patient is currently afebrile. His vital signs stable. General: No acute distress. HEENT: Normocephalic, atraumatic. Pupils equal, round, reactive to light. Mucous membranes moist. Oropharynx benign. Neck: Supple. Trachea midline. Cardiovascular: Regular rate and rhythm. Lungs: Grossly clear. Abdomen: Soft, less tender. No peritoneal signs. Extremities: Thrill noted in the right upper extremity. Vascular: All extremities perfused. Neurologic: Grossly intact. Skin: No signs of jaundice. LABORATORY: None this morning as of yet. ASSESSMENT AND PLAN: A 48-year-old gentleman with diverticulitis. Diverticulitis. At this time, he seems to be doing well. He is on a GI soft diet. I think he can be discharged here in the near future from a surgical point of view. He will likely need a follow up with myself or Dr. Diana, to discuss surgical resection of this area for diverticulitis. cc: Kris Cannon MD
[2018-11-21 07:24] VITALS: BP 159/80
[2018-11-21] MEDS: NORVASC PO SCH (09:19)
[2018-11-21] MEDS: COREG PO SCH (09:19)
--- NOTE | 2018-11-21 12:41 | DISCHARGE SUMMARY ---
ADMISSION DATE: 11/19/2018 DISCHARGE DATE: 11/21/2018 DISCHARGE DIAGNOSES: 1. Acute diverticulitis in the proximal sigmoid colon, improved. 2. End-stage renal disease, on dialysis. 3. Uncontrolled hypertension, improved. CONSULTATIONS: 1. Dr. Paul Kurtz from nephrology. 2. Dr. Kris Cannon from general surgery. PROCEDURES: Abdomen and pelvis CT showed sigmoid colonic diverticulitis with no evidence of perforation. HOSPITAL COURSE: This is a 48-year-old, male with a history of end- stage renal disease on dialysis who presented to the emergency department complaining of abdominal pain. Upon ER evaluation, he was found to have a diverticulitis on the CT scan of the abdomen. Patient was admitted to the hospital for treatment of this condition. Patient was receiving Zosyn renally dosed. After 2 days, he started feeling good. No nausea or vomiting. He was tolerating a diet very well so, at this point, we can transition to outpatient treatment. We will change antibiotics to oral medications. I will continue to monitor this patient closely. We are discharging this patient in stable condition DISCHARGE PHYSICAL EXAMINATION: Vital Signs: Temperature 98.4 degrees, heart rate 75, respiratory rate 16, blood pressure 159/80, O2 saturation 98% on room air. General Examination: This is a 48-year-old male lying in bed, in no acute distress. Cardiovascular Examination: S1 and S2 heard. No murmurs, gallops, or rubs. Regular rate and rhythm. Respiratory Examination: Clear bilaterally to auscultation. No work of breathing or using accessory muscles. Abdomen: Soft. Nontender to palpation. Bowel sounds present. No organomegaly. Extremities: No clubbing, cyanosis, or edema. Peripheral pulses present in both legs. Neurological Examination: The patient is alert and oriented x3. Moves 4 extremities. DISCHARGE DISPOSITION: 1. Home to self-care. 2. Followup with Dr. Diana in a couple weeks for possible outpatient surgery for recurrent diverticulitis. LIST OF NEW MEDICATIONS: 1. Levofloxacin 250 mg 1 tablet p.o. daily for 10 days. 2. Metronidazole 500 mg 1 tablet p.o. b.i.d. for 10 days. cc: Alec Breen MD [facility]
== END 2018-11-21 11:40 | disposition home or self-care (01) | DRG 391 ==
LOC: ED 09:50 → 4N 12:48
PROVIDERS: ATTEND Internal Medicine
CPT/HCPCS: 74176; 80053; 81001; 82150; 82948; 83036; 83690; 83735; 85025; 85610; 85730; 94761; 94799; 96374; 99285; A9270; C9113; J0360; J1170; J1644; J2405; J2543; J7030; S0164; XXXXX

== ENCOUNTER 2019-02-14 08:13 | Inpatient (IN) ==
[2019-02-14 08:52] LABS: BASO# 0.03 X1000 (0.0-0.2); BASO% 0.3 % (0.0-0.8); EOS# 0.31 X1000 (0.0-0.7); EOS% 2.8 % (0.0-10.0); HEMATOCRIT 33.7 % (42.0-52.0); HEMOGLOBIN 11.8 g/dL (14.0-18.0); IMM GRAN# 0.02 X1000 (0.0-0.04); IMM GRAN% 0.2 % (0.0-0.5); LYMPH# 1.18 X1000 (1.2-3.4); LYMPH% 10.7 % (20.5-51.1); MCH 30.3 PG (27-31); MCV 86.6 FL (81-99); MONO# 0.72 X1000 (0.11-0.59); MONO% 6.5 % (1.7-9.3); MPV 11.8 FL (7.4-10.4); NEUT# 8.76 X1000 (1.4-6.5); NEUT% 79.5 % (42.2-75.2); PLT 188 X1000 (130-400); RBC 3.89 XMIL (4.7-6.1); RDW 15.7 % (11.5-14.5); WBC 11.02 X1000 (4.8-10.8)
[2019-02-14 09:23] LABS: AGAP 19; ALB/GLOB RATIO 1.1; ALKALINE PHOSPHATASE 93 U/L (32-122); AMYLASE 294 U/L (20-200); BUN 68 mg/dL (8-22); CALCIUM 8.8 mg/dL (8.8-10.2); CHLORIDE 94 mmol/L (98-107); COSMO 301; CREATININE 8.9 mg/dL (0.7-1.2); ESTIMATED GFR 6; GLUCOSE 302 mg/dL (70-104); GOT 7 U/L (10-34); GPT < 5 U/L (10-44); LIPASE 541 U/L (13-60); POTASSIUM 4.6 mmol/L (3.5-5.1); SODIUM 135 mmol/L (136-145); TCO2 22 mmol/L (25-35); TOTAL BILIRUBIN 0.43 mg/dL (0.20-1.00); TOTAL PROTEIN 7.8 g/dL (6.3-8.3)
--- NOTE | 2019-02-14 09:41 | PROVIDER DOCUMENTATION ---
HPI-Abdominal Pain/GI Problem - General Chief Complaint: Abdominal Pain Stated Complaint: DIARRHEA Time Seen by Provider: 02/14/19 08:31 Source: patient Allergies/Adverse Reactions: Patient Allergies Allergy/AdvReac Type Severity Reaction Status Date / Time No Known Allergies Allergy Verified 08/22/18 04:36 Home Medications: Home Medication List Medication Instructions Recorded Confirmed Last Taken Type Insulin Aspart [Novolog] 30 unit SQ AC 05/30/18 11/20/18 11/15/18 09:00 History Insulin Detemir [Levemir] 50 units SQ QHS 05/30/18 11/20/18 11/18/18 21:00 History Losartan [Cozaar] 100 mg PO QHS 05/30/18 11/20/18 11/17/18 21:00 History Amlodipine [Norvasc] 10 mg PO DAILY #30 tab 09/18/18 11/20/18 11/18/18 21:00 Rx Carvedilol [Coreg] 6.25 mg PO Q12HR #30 tab 09/18/18 11/20/18 11/17/18 21:00 Rx Levofloxacin 250 mg PO DAILY #10 tab 11/21/18 Unknown Rx Metronidazole 500 mg PO BID #20 tab 11/21/18 Unknown Rx - History of Present Illness-ABD Nature of Presenting Problems: 49 y/o WM c/o LLQ pain and diarrhea x2 for the past day noting that this is similar to his previous diverticulitis bouts. Abdominal Pain Onset Location: reports: LLQ Pain Radiation: reports: no radiation Quality of Pain: reports: aching, cramping Severity in ED: reports: mild Onset/Duration: reports: 2 days ago Timing: reports: still present Activities at Onset: reports: light activity Exposure to sick contacts?: No Modifying Factors: improves with: movement, palpation Associated Symptoms: reports: diarrhea Last BM: last night Dark Stools Present?: reports: none noticed Rectal Bleeding: reports: none # of Diarrhea Episodes: 2 Rectal Pain: reports: none Emesis Description: reports: none Bruising or Bleeding Gums?: No Similar Symptoms Previously?: No Recently seen or treated by another doctor?: No Review of Systems - Adult - REVIEW OF SYSTEMS - ADULT Constitutional: reports: no symptoms reported, see HPI Eyes: reports: no symptoms reported, see HPI Ears, Nose, Mouth & Throat: reports: no symptoms reported, see HPI Cardiovascular: reports: no symptoms reported, see HPI Respiratory: reports: no symptoms reported, see HPI Gastrointestinal: reports: see HPI, abdominal pain (LLQ tenderness 8/10), diarrhea Genitourinary: reports: no symptoms reported, see HPI Musculoskeletal: reports: no symptoms reported, see HPI Integumentary: reports: no symptoms reported, see HPI Neurological: reports: no symptoms reported, see HPI Psychiatric: reports: no symptoms reported, see HPI Endocrine: reports: no symptoms reported, see HPI Hematologic/Lymphatic: reports: no symptoms reported, see HPI Allergic/Immunologic: reports: no symptoms reported, see HPI All Other Systems: Reviewed and Negative Past History - Adult - PAST MEDICAL HISTORY-ADULT Review of Records: reports: Nursing Assessment Review, Medications Reviewed, Social history reviewed & non-contributory. Major Childhood Illnesses: reports: denies history Cardiovascular: reports: HTN, hyperlipidemia Respiratory: reports: denies history Gastrointestinal: reports: pancreatitis Obstetrical/Gynecological: reports: denies history Genitourinary: reports: dialysis, ESRD, kidney disease Musculoskeletal: reports: denies history Neurological: reports: denies history Psychiatric: reports: denies history Endocrine/Immune: reports: Diabetes Other Conditions: reports: denies history - PRIOR SURGERIES/PROCEDURES Surgical/Procedure History: reports: reviewed, not pertinent, appendectomy, hernia repair - IMMUNIZATION STATUS Childhood Immunizations: See Nurse Assessment Flu Vaccine: See Nurse Assessment - FAMILY HISTORY Family History: reviewed, not pertinent Physical Exam-General - PHYSICAL EXAM-ADULT Initial Vital Signs Reviewed: Yes - CONSTITUTIONAL General Appearance: appears well, alert, no apparent distress - EYES Eyes: PERRL/EOMI - HEAD, EARS, NOSE, MOUTH & THROAT HENMT: normocephalic/atraumatic, moist mucous membranes - NECK Neck: non-tender, full range of motion, supple, normal inspection - RESPIRATORY Respiratory: chest non-tender, lungs clear, normal breath sounds, no pleuratic chest pain, no respiratory distress, no accessory muscle use - CARDIOVASCULAR Cardiovascular: normal peripheral pulses, regular rate, rhythm, no edema, no gallop, no JVD, no murmur - GASTROINTESTINAL (ABDOMEN) Abdominal Exam: normal bowel sounds, soft, no organomegaly, no pulsatile mass, tenderness (LLQ abdo tenderness with palpation) - LYMPHATIC Lymphatic: no adenopathy - MUSCULOSKELETAL Back Exam: normal inspection, no CVA tenderness, no vertebral tenderness Extremity: normal range of motion, non-tender, normal gait, normal inspection, no pedal edema, no calf tenderness - SKIN Integumentary: normal color, normal turgor - NEUROLOGIC Neurologic: fruit coordinator II-XII nml as tested, grossly normal, no motor/sensory deficits - PSYCHIATRIC Psych/Mental Status: normal mood/affect, normal thought content, normal thought process, oriented x 3 Progress - PLAN OF CARE/RESULTS Progress/Plan/Lab Results: Vital Signs - 8 hr 02/14/19 08:14 02/14/19 08:23 Temperature 98.3 F Pulse Rate 90 85 Respiratory Rate 18 22 Blood Pressure 218/111 201/108 O2 Sat by Pulse Oximetry 98 98 Laboratory Results - last 24 hr 02/14/19 02/14/19 08:30 08:30 WBC 11.02 H RBC 3.89 L Hgb 11.8 L Hct 33.7 L MCV 86.6 MCH 30.3 MCHC 35.0 RDW Std Deviation 15.7 H Plt Count 188 MPV 11.8 H Immature Gran % (Auto) 0.2 Neut % (Auto) 79.5 H Lymph % (Auto) 10.7 L Divide % (Auto) 6.5 Eos % (Auto) 2.8 Baso % (Auto) 0.3 Immature Gran # (Auto) 0.02 Neut # (Auto) 8.76 H Lymph # (Auto) 1.18 L Divide # (Auto) 0.72 H Eos # (Auto) 0.31 Baso # (Auto) 0.03 Sodium 135 L Potassium 4.6 Chloride 94 L Carbon Dioxide 22 L Anion Gap 19 BUN 68 H Creatinine 8.9 H Estimated GFR/1.73 m2 6 BUN/Creatinine Ratio 8 Glucose 302 H Calculated Osmolality 301 Calcium 8.8 Total Bilirubin 0.43 AST 7 L ALT < 5 L Alkaline Phosphatase 93 Total Protein 7.8 Albumin 4.0 Globulin 3.8 Albumin/Globulin Ratio 1.1 Amylase 294 H Lipase 541 H Orders Category Date Time Status CT ABD/PELVIS W/ORAL CONT ONLY [CT] Stat Exams 02/14/19 09:36 Ordered AMYLASE [CHEM] Stat Lab 02/14/19 08:30 Completed CBC WITH ELECTRONIC DIFF [HEME] Stat Lab 02/14/19 08:30 Completed COMPREHENSIVE METABOLIC PANEL [CHEM] Stat Lab 02/14/19 08:30 Completed LIPASE [CHEM] Stat Lab 02/14/19 08:30 Completed URINALYSIS [URINALYSIS] Stat Lab 02/14/19 08:31 Uncollected Result Diagrams: 02/14/19 08:30 02/14/19 08:30 - CONSULTS/PCP/HOSPITALIST Notification #1 *Consult/PCP/Hospitalist*: Odilon Shields Time Discussed: 12:11 Consult Disposition: Will see in ED, Admit Departure - Departure Date of Disposition Decision: 02/14/19 Time of Disposition Decision: 12:11 DIAGNOSIS: Chronic kidney disease, DM type 2 (diabetes mellitus, type 2), HTN (hypertension), Pancreatitis, acute, Acute diverticulitis Disposition: ADMITTED INPATIENT 09 Certified Medical Emergency: Emergent Condition: Fair Referrals and Follow-Ups: Paul Kurtz MD [Primary Care Provider] - - Critical Care Note This patient required my direct & personal management of CC.: No Attestation - Physician/ EMILY Attestation Patient care was provided by Advanced Practice Provider:: No The physician spent face to face time with patient:: Yes Advanced Practice Provider documentation review:: Supervising physician onsite and consulted in the evaluation and care of this patient. The physician did have a face to face encounter with the patient.
[2019-02-14] MEDS ORDERED: APRESOLINE IV ONE (09:43)
--- NOTE | 2019-02-14 11:28 | Diag Imaging Result Doc PS360 ---
EXAM: CT ABD/PELVIS W/ORAL CONT ONLY HISTORY: LLQ abdo pain, possible diverticulitis TECHNIQUE: CT of the abdomen and pelvis without contrast COMPARISON: 11/19/2018 FINDINGS: The gallbladder is contracted. No calcified stones. Normal noncontrasted liver, spleen, pancreas, and adrenal glands. No renal stones. No hydronephrosis. No aortic aneurysm. No inflammation about the cecum. The appendix is not identified. No no bowel obstruction. The scattered colonic diverticula. Mild wall thickening with adjacent inflammation at the junction of the descending and sigmoid colon. No adjacent free air or abscess. The urinary bladder is only mildly distended. The prostate is not enlarged. IMPRESSION: Persistent or recurrent diverticulitis at the junction of the descending and sigmoid colon. This exam was performed using automated exposure control, adjustment of mA or kV according to patient size, and/or use of iterative reconstruction technique. Electronically signed by Celestine Bueno 02/14/2019 11:26 AM
--- NOTE | 2019-02-14 13:44 | GENERAL SURGERY CONSULTATION ---
DATE: 02/14/2019 HISTORY OF PRESENT ILLNESS: This 49-year-old gentleman who has end-stage renal disease has had right forearm AV fistula malfunction, recent revision at the [facility]. He has also had recurrent diverticulitis who presents with 24 hours of left lower quadrant abdominal pain. He said he had a colonoscopy few years ago. Unsure of the results. Has been his 3rd or 4th episode of diverticulitis all of which has been relatively mild and uncomplicated to the best of my knowledge. MEDICAL HISTORY: End-stage renal disease, hypertension, diabetes, recurrent diverticulitis. SURGICAL HISTORY: He has had multiple dialysis access operations. SOCIAL HISTORY: History of smoking, no current alcohol, is a receives most of his care at the [facility]. FAMILY HISTORY: Reviewed noncontributory. REVIEW OF SYSTEMS: 10 point negative other than HPI PHYSICAL EXAMINATION: He is hypertensive. Systolics in 200s. Afebrile. No tachycardia.General: He is alert. HEENT: No scleral icterus. No cervical mass. Cardiovascular: Normal rate. Pulmonary: No increased work of breathing. Abdomen: Tender left lower quadrant but no diffuse peritonitis . Integument: Warm, dry. Psychiatric: Appropriate affect. Neurologic: No gross deficits. His right arm has a thrill and 3 well-healing surgical incisions. I reviewed his labs. He does have mild leukocytosis. Renal function at his baseline. ASSESSMENT AND PLAN: This is a gentleman 49-year-old with recurrent diverticulitis. Will continue bowel rest, antibiotics, being admitted to the hospitalist for dialysis, medical management, will follow along. He may ultimately benefit from elective resection of this but would like to get a colonoscopy prior least 6 weeks after resolution of his last episode. If he were to clinically deteriorate he will need a more urgent operation but will observe him for now. cc: Van Diana MD MTDD
[2019-02-14] MEDS: HEPARIN SUBQ SCH (14:00)
[2019-02-14] MEDS: ZOSYN 2.25 GM in NS 50 ML IV SCH ×2 (14:00→20:36)
[2019-02-14] MEDS ORDERED: MORPHINE IV PRN (14:14)
[2019-02-14] MEDS ORDERED: INSULIN ASPART 30 UNIT SQ SCH (16:00)
[2019-02-14] MEDS: TYLENOL PO PRN (16:26)
--- NOTE | 2019-02-14 16:52 | HISTORY AND PHYSICAL ---
ENVIRONMENTAL OFFICER: Dr. Pual Kurtz. CHIEF COMPLAINT: Abdominal pain. HISTORY OF PRESENT ILLNESS: Mr. Pastor is a 49-year-old male with a history of uncontrolled hypertension and diabetes, ESRD on hemodialysis, who also has been hospitalized three times in the last six months or so for diverticulitis, which was treated medically. He was admitted today with abdominal pain that started yesterday and became progressively worse throughout yesterday and into today. He was at dialysis and was about an hour in when the abdominal pain, which is located in the left lower quadrant, became bad enough that he had to come to the ER. He denies any fever or chills. No chest pain. No shortness of breath. No lower extremity edema. He did report one episode of bright red blood streaking in the stool. He came to the ER for evaluation. He had a CT done which showed recurrent or persistent diverticulitis at the junction of the descending and sigmoid colon. Laboratory data showed his usual chemistry and he had a minimal elevation in white count at 11,000. As such, he is going to be admitted for further treatment and evaluation. PAST MEDICAL HISTORY: 1. ESRD on hemodialysis Thursday, Thursday, and Thursday. 2. Hypertension, poorly controlled. 3. Diabetes mellitus, poorly controlled. 4. Recurrent diverticulitis, treated medically thus far. He has yet to have a colonoscopy regarding these episodes of diverticulitis. PAST SURGICAL HISTORY: Right arm fistula, appendectomy, hernia repair, and right shoulder. SOCIAL HISTORY: Denies tobacco, alcohol or drug use. He is single. He lives with his mother. He has four grown children. REVIEW OF SYSTEMS: A 14-point review of systems was obtained and found to be negative with the exception of the HPI. ALLERGIES: No known drug allergies. HOME MEDICATIONS: Cozaar 100 mg p.o. at bedtime, Levemir 50 units subcutaneously at bedtime, NovoLog 30 units subcutaneously before meals, Coreg 6.25 mg p.o. q 12 hours, Norvasc 10 mg daily. PHYSICAL EXAMINATION: VITAL SIGNS: Blood pressure 196/86, heart rate 80, respiratory rate 17, O2 saturation 98% on room air, temperature 98.1. GENERAL: This is a disheveled 49-year-old male lying in hospital bed in no acute distress. NEUROLOGICAL: He is awake, alert, and follows commands. No focal deficits. HEENT: Head is atraumatic and normocephalic. Pupils are equal, round and reactive to light. Oral mucosa is slightly dry. NECK: Trachea is midline. There is no JVD. CHEST: Clear to auscultation bilaterally. CARDIOVASCULAR: Regular rate and rhythm. S1 and S2 are noted. Diastolic murmur noted as well. GASTROINTESTINAL: Left lower quadrant tenderness to palpation. Bowel sounds are hypoactive. EXTREMITIES: No edema. Pulses are 1+ bilaterally. DIAGNOSTIC DATA: Abdomen and pelvis CT shows diverticulitis at the junction of the descending and sigmoid colon. WBC 11, hemoglobin 11.8, hematocrit 33.7, platelet count 188,000. Sodium 135, potassium 4.6, chloride 94, CO2 22, anion gap 19, BUN 68, creatinine 8.9, glucose 302, calcium 8.8, AST 7, ALT less than 5, protein 7.8, amylase 294, lipase 541. ASSESSMENT AND PLAN: 1. Recurrent diverticulitis: Surgery is following. He will need colonoscopy once he has had antibiotics for some time and per surgical recommendations. Will continue Zosyn. Blood cultures have been ordered. Will keep him on liquid diet and as such half his insulin dosing from home. 2. Questionable pancreatitis: The patient has laboratory evidence of pancreatitis but nothing on CT, likely from the colonic inflammation. However, the CT was done without contrast so he may need right upper quadrant ultrasound for better evaluation. 3. Poorly controlled diabetes mellitus: Blood sugar is 302. Will keep his insulin going but only a half rate at this time because of his limited diet. However, will certainly increase if necessary. 4. Hypertension: Continue his home medications. Add intravenous antihypertensives as necessary. 5. End stage renal disease, on hemodialysis: Dr. Kurtz has been consulted. Overall stable. 6. Deep venous thrombosis prophylaxis with subq heparin. Further recommendations to follow. Dictated by JEFFERSON Adams for Haroon Shields MD cc: JEFFERSON Adams MD [facility]
[2019-02-14] MEDS: HUMULIN R SUBQ SCH (17:08)
[2019-02-14] MEDS: HUMALOG SUBQ SCH (17:08)
--- NOTE | 2019-02-14 17:41 | HISTORY AND PHYSICAL ---
CHIEF COMPLAINT: Was abdominal pain. HISTORY OF PRESENT ILLNESS: This is a 49-year-old male, presenting with pain in his lower quadrants consistent with previous diagnoses of diverticulitis. He has had at least 2 episodes of this previously. He has associated diarrhea. Do not believe there has been any bleeding. CT scan showed diverticulitis, recurrent sigmoid diverticulitis. He was admitted for treatment of the descending and sigmoid colon. We will put him on Zosyn this time renally dosed. Manage his diabetes and continue dialysis. Renal consultation I think since this is at least his 3rd episode. He will need a surgical evaluation because he may be a candidate for resection once he is stabilized; This is a [id number] encounter note with JEFFERSON Smith. cc: Haroon Shields MD
[2019-02-14 19:00] LABS: URINE SOURCE CLEAN CATCH
[2019-02-14 19:12] LABS: BILIRUBIN URINE NEGATIVE (NEGATIVE); BLOOD URINE NEGATIVE (NEGATIVE); COLOR YELLOW; GLUCOSE URINE 1000 mg/dL (NEGATIVE); KETONE URINE NEGATIVE (NEGATIVE); LEUKOCYTES URINE NEGATIVE (NEGATIVE); NITRITE URINE NEGATIVE (NEGATIVE); PROTEIN URINE 600 mg/dL (NEGATIVE); SP GRAVITY URINE 1.005; TURBIDITY URINE CLEAR (CLEAR); UROBILINOGEN URINE NORMAL (NORMAL)
[2019-02-14 19:13] LABS: UR EPITHELIAL CELLS <10 /HPF (<10); URINE BACTERIA NEGATIVE /HPF; URINE RBC <10 /HPF (<10); URINE WBC <10 /HPF (<10)
[2019-02-14] MEDS: COZAAR PO SCH (20:36)
[2019-02-14] MEDS: COREG PO SCH (20:36)
[2019-02-14] MEDS ORDERED: LEVEMIR SUBQ SCH (21:00)
[2019-02-15] MEDS: LEVEMIR SUBQ SCH ×2 (00:32→22:51)
[2019-02-15] MEDS: HUMULIN R SUBQ SCH ×7 (00:32→22:10)
[2019-02-15] MEDS: ZOSYN 2.25 GM in NS 50 ML IV SCH ×3 (05:12→22:49)
[2019-02-15] MEDS: HEPARIN SUBQ SCH ×2 (05:12→16:29)
[2019-02-15] MEDS: PRILOSEC PO SCH ×2 (05:49→06:00)
[2019-02-15] MEDS: HUMALOG SUBQ SCH ×3 (06:00→16:29)
[2019-02-15] MEDS ORDERED: NS 2,000 ML MISC PRN (06:03)
[2019-02-15] MEDS ORDERED: TIGHT: 0.2 ML/HR FOR DIALYSIS MISC PRN (06:03)
[2019-02-15] MEDS ORDERED: HEPARIN IV PRN (06:03)
[2019-02-15 07:02] LABS: BASO# 0.05 X1000 (0.0-0.2); BASO% 0.5 % (0.0-0.8); EOS# 0.36 X1000 (0.0-0.7); EOS% 3.7 % (0.0-10.0); HEMATOCRIT 30.6 % (42.0-52.0); HEMOGLOBIN 10.1 g/dL (14.0-18.0); LYMPH# 1.15 X1000 (1.2-3.4); LYMPH% 11.9 % (20.5-51.1); MCH 29.4 PG (27-31); MCV 89.2 FL (81-99); MONO# 0.76 X1000 (0.11-0.59); MONO% 7.8 % (1.7-9.3); MPV 11.3 FL (7.4-10.4); NEUT# 7.37 X1000 (1.4-6.5); NEUT% 76.1 % (42.2-75.2); PLT 178 X1000 (130-400); RBC 3.43 XMIL (4.7-6.1); RDW 15.9 % (11.5-14.5); WBC 9.69 X1000 (4.8-10.8)
[2019-02-15 07:42] LABS: HEMOGLOBIN A1C 7.7 % (4.8-6.0)
[2019-02-15 07:43] LABS: AGAP 22; ALBUMIN 3.3 g/dL (3.5-5.0); ALKALINE PHOSPHATASE 73 U/L (32-122); BUN 81 mg/dL (8-22); CALCIUM 7.2 mg/dL (8.8-10.2); CHLORIDE 94 mmol/L (98-107); COSMO 298; ESTIMATED GFR 5; GLUCOSE 197 mg/dL (70-104); GOT 8 U/L (10-34); GPT < 5 U/L (10-44); SODIUM 134 mmol/L (136-145); TCO2 18 mmol/L (25-35); TOTAL BILIRUBIN 0.46 mg/dL (0.20-1.00); TOTAL PROTEIN 6.5 g/dL (6.3-8.3)
[2019-02-15] MEDS: NORVASC PO SCH ×2 (07:50→13:03)
[2019-02-15] MEDS: COREG PO SCH ×3 (07:50→22:50)
[2019-02-15] MEDS: TYLENOL PO PRN (07:50)
--- NOTE | 2019-02-15 10:12 | NEPHROLOGY CONSULTATION ---
DATE: 02/15/2019 REASON FOR ADMISSION: Abdominal pain. TIME SEEN: 07. CONSULTING PHYSICIAN: Dr. Elizabeth. REASON FOR CONSULT: End-stage renal disease with assistance with medical management. HISTORY OF PRESENT ILLNESS: Mr. Pastor is a 49-year-old, white male who is known to our outpatient services for hemodialysis on Thursday, , Thursday at the [facility]. The patient has had abdominal discomfort for several days prior to coming to the emergency room. He has a history of diverticulitis over the last 6 months. He has been treated medically. He continues with abdominal pain, progressively worsening. Came off his dialysis treatment yesterday evening secondary to having lower left quadrant pain. He denies any fever or chills. No chest pain. No increased work of breathing. No diaphoresis. No lower extremity edema. He remains chronically nauseated. No emesis. CT of the abdomen was done, consistent with persistent diverticulitis at the junction of the descending and sigmoid colon. Due to these findings, patient was admitted for further monitoring and evaluation. PAST MEDICAL HISTORY: End-stage renal disease, on hemodialysis Thursday, Thursday, Thursday at the [facility], hypertension which is poorly controlled, diabetes mellitus type 2, recurrent diverticulitis - medically treated thus far, anemia of chronic disease, osteodystrophy of chronic disease. PAST SURGICAL HISTORY: He has a right upper arm fistula, appendectomy, hernia repair, and right shoulder. SOCIAL HISTORY: He is single. He lives with his mother. Denies tobacco, alcohol, or illicit drug use. Has 4 grown children. ALLERGIES: Listed as no known drug allergies. HOME MEDICATIONS: Cozaar, Levemir, NovoLog, Coreg, and Norvasc. REVIEW OF SYSTEMS: Times 10 with pertinent positives listed above in the HPI. VITAL SIGNS: Temperature is 97.9 degrees, blood pressure 163/81, heart rate 81, respirations 20. He is on room air. Last recorded saturation 90%. He has had 625 in and 0 recorded out with need for dialysis LABORATORY DATA: Sodium 134, potassium 5, chloride is 94, CO2 18, BUN 81, creatinine 11, glucose 197, his anion gap is 22, calcium 7.2, albumin 3.3. White count 9.69, hemoglobin 10.1, hematocrit 30.6, with a platelet count of 178,000. The patient had a CT of the abdomen indicating diverticulitis at the junction of the descending and sigmoid colon. PHYSICAL EXAMINATION: General: This is a 49-year-old, white male. He is currently resting quietly in bed. He appears chronically ill, though no acute distress. His skin is warm and dry. HEENT: Normocephalic, atraumatic. Conjunctivae are pale. He has CLAUDINE. Mucous membranes are dry. Neck: Supple. Trachea midline. No evidence of JVD. Cardiovascular: Regular rate and rhythm. He is without gallop. He has a systolic murmur. Lungs: Clear to auscultation bilaterally. Equal excursion, on room air. Abdomen: Slightly tender. Positive bowel sounds noted, hypoactive. Extremities: Have no edema. No clubbing or cyanosis. Right upper arm fistula. Neurological: Alert and oriented x3. ASSESSMENT AND PLAN: 1. Chronic kidney disease stage 5D. The patient is due for his routine dialysis treatment today. We will place him on a 2 K bath. He is to dialyze for 3.5 hours. We will attempt to pull him to his outpatient dry weight. 2. Electrolytes and acid-base balance with correction on dialysis. 3. Anemia. Hemoglobin is close to normal at 10.1. 4. Recurrent diverticulitis. The patient has been on medical dosed antibiotics with a consult placed for Dr. Karl Diana for recurrent diverticulitis. 5. Lower extremity feet pain and burning. We will start him on gabapentin 100 mg at bedtime and evaluate in 2 to 3 days to see if this is assisting with his pain or not. I would like to thank you for allowing us to follow with this patient. Dictated by JEFFERSON Farnsworth for Paul Kurtz MD Face to face encounter, data reviewed, discussed with Alka Trejo on 02/15/19. I agree with the above assessment and plan of care. cc: JEFFERSON Farnsworth MD [facility]
[2019-02-15] MEDS: ZOFRAN IV PRN ×2 (11:50→12:16)
--- NOTE | 2019-02-15 14:43 | GENERAL SURGERY PROGRESS NOTE ---
DATE: 02/15/2019 SUBJECTIVE: No fevers, no tachycardia overnight. His abdomen is soft. No tenderness. No peritonitis. I reviewed his labs: White count is normal at 9, hematocrit is 30, creatinine is 11.0. ASSESSMENT AND PLAN: A 49-year-old gentleman with uncomplicated diverticulitis involving sigmoid. This has been recurrent. Plans for dialysis soon. We will continue bowel rest, antibiotics as he is clinically improving. He may ultimately benefit from elective colectomy, but will monitor. cc: Van Diana MD
--- NOTE | 2019-02-15 16:28 | PROGRESS NOTE ---
DATE: 02/15/2019 SUBJECTIVE: Mr. Pastor was admitted yesterday, 02/14/2019. He is a patient of Dr. Kurtz. He is followed at the [facility]. This is a 49-year-old with history of uncontrolled hypertension, diabetes, end-stage renal disease on hemodialysis, also has been hospitalized 3 times in the last 6 months for diverticulitis and treated medically. He was admitted today with more pain in the left lower quadrant and progressively worse throughout the day. He was at dialysis and was about an hour in when the abdominal pain located in the left lower quadrant became severe enough where he wanted to go the emergency room. Denies any fever, chills. No shortness of breath. No lower extremity edema. He did report episodes of bright red blood in the stool when he came to the ER. CT was done which showed persistent diverticulitis at the junction of the descending and sigmoid colon. Labs were done. [place] count was [address]. PAST MEDICAL HISTORY: 1. Again, end-stage renal disease, on hemodialysis Mondays, Wednesdays, and Fridays. 2. Hypertension. 3. Diabetes mellitus type 2, poorly controlled. 4. Recurrent diverticulitis. PAST SURGICAL HISTORY: Right arm fistula, fairly recent, healing well. Status post appendectomy, status post hernia repair, status post right shoulder surgery, I believe this was for torn rotator cuff. So admitted with diverticulitis. He does feel a little better. Left lower quadrant pain has diminished some. OBJECTIVE: Vital signs: Blood pressure is 176/77, then 172/93, and then 166/89, temp 98.4 degrees, pulse 82, respirations 18. HEENT: Pupils were equal. Neck: No distended neck veins. Lungs: Clear in all lung bradford. Cardiovascular: Regular rhythm and rate without murmur or S3. Urine was 7,800 mL from dialysis today. LABORATORY: Review of his lab. White count is down to 9,690, hematocrit 30, platelet count 178,000. Chemistries: Sodium 130, potassium 5.0, chloride 94, BUN 81, creatinine 11.0. Blood sugars 178, 284, and 205. Albumin 3.3. ASSESSMENT AND PLAN: 1. Diverticulitis. He does feel better. He got dialyzed today. 2. Chronic kidney disease stage 5D, on dialysis. His volume status and electrolytes look good. 3. Anemia. Hemoglobin of 10. That has been stable. 4. Lower extremity feet pain and burning. He was started on some gabapentin at bedtime. I did get a call from the [facility] wanting to know about transfer. The patient felt like he was doing better and was hoping he could go home tomorrow and not have to be transferred to the hospital. We will discuss this with the [facility]. cc: Micah Elizabeth MD
[2019-02-15] MEDS ORDERED: NEURONTIN PO SCH (21:00)
[2019-02-15] MEDS: COZAAR PO SCH (22:49)
[2019-02-16] MEDS: ZOSYN 2.25 GM in NS 50 ML IV SCH (05:06)
[2019-02-16] MEDS: HEPARIN SUBQ SCH (05:07)
[2019-02-16] MEDS: HUMALOG SUBQ SCH ×2 (06:11→08:53)
[2019-02-16] MEDS: HUMULIN R SUBQ SCH (06:13)
[2019-02-16] MEDS: PRILOSEC PO SCH (06:13)
[2019-02-16 07:27] LABS: ALBUMIN 3.7 g/dL (3.5-5.0); CALCIUM 7.3 mg/dL (8.8-10.2); PHOSPHORUS 7.4 mg/dL (2.7-4.5); POTASSIUM 5.1 mmol/L (3.5-5.1)
[2019-02-16 07:34] LABS: CREATININE 8.9 mg/dL (0.7-1.2)
[2019-02-16 07:39] VITALS: BP 161/74
[2019-02-16] MEDS: NORVASC PO SCH (08:46)
[2019-02-16] MEDS: COREG PO SCH (08:46)
--- NOTE | 2019-02-16 09:41 | DISCHARGE SUMMARY ---
ADMISSION DATE: 02/14/2019 DISCHARGE DATE: 02/16/2019 HOSPITAL COURSE: He is a patient of Dr. Paul Kurtz. He is followed at the [facility]. He came in for abdominal pain in the left lower quadrant. He has a history of uncontrolled hypertension, diabetes mellitus, end-stage renal disease for which he gets hemodialysis. He was hospitalized 3 times in the last 6 months for diverticulitis. He has been treated medically and was admitted on 02/14/2019 with recurrent left lower quadrant abdominal pain. He was at dialysis and about an hour into dialysis, developed the abdominal pain. Came to the emergency room. CT showed recurrent persistent diverticulitis at the junction of descending and sigmoid colon. The patient was put on IV antibiotics and he showed good improvement in the pain. Was on regular diet, tolerating this well. Blood sugars well controlled. We had him on Zosyn. He is not allergic to anything. I am going to discharge him on Levaquin 500 mg a day and Flagyl. I am going to give him 500 mg t.i.d. and continue this for 10 days. His other discharge medications will be Neurontin 100 mg at bedtime, insulin detemir 25 units at bedtime, Cozaar 100 mg at bedtime, Norvasc 10 mg a day, Coreg 6.25 mg q.12 hours, and Prilosec 40 mg a day. cc: Micah Elizabeth MD
--- NOTE | 2019-02-16 10:00 | NEPHROLOGY PROGRESS NOTE ---
DATE: 02/16/2019 SUBJECTIVE: He has less pain, and he has been able to eat. No nausea or vomiting. OBJECTIVE: Vital Signs: Blood pressure 161/74, heart rate 76, respiration 18, afebrile. General: No acute distress. Skin: Warm and dry. Neck: Neck veins are not distended. Heart: Regular with a gallop. Lungs: Equal. No crackles. Abdomen: Soft, minimally tender in the left lower quadrant. Bowel sounds are present. Extremities: Minimal edema. No clubbing or cyanosis. IMPRESSION: 1. Chronic kidney disease 5D. He has plans for discharge today. We have made arrangements for him to have an outpatient dialysis treatment this morning at the clinic if he can be discharged promptly. I discussed this with Dr. Elizabeth. 2. Electrolytes/acid base/volume status/anemia all in target. cc: Paul Kurtz MD
== END 2019-02-16 10:02 | disposition home or self-care (01) | DRG 391 ==
LOC: ED 08:13 → SUATTDRO 13:34 → 4N 13:34
PROVIDERS: ATTEND Emergency Medicine
CPT/HCPCS: 74176; 80053; 80069; 81001; 82150; 82948; 83036; 83690; 85025; 96374; 99285; A9270; J0360; J1644; J1815; J2270; J2405; J2543; J7030; XXXXX

== ENCOUNTER 2019-04-11 11:52 | Inpatient (IN) ==
[2019-04-11] MEDS ORDERED: NS 250 ML IV ONE (12:49)
[2019-04-11 13:44] LABS: BASO# 0.04 X1000 (0.0-0.2); BASO% 0.3 % (0.0-0.8); EOS# 0.11 X1000 (0.0-0.7); EOS% 0.9 % (0.0-10.0); HEMOGLOBIN 9.4 g/dL (14.0-18.0); IMM GRAN# 0.05 X1000 (0.0-0.04); IMM GRAN% 0.4 % (0.0-0.5); LYMPH# 0.72 X1000 (1.2-3.4); LYMPH% 6.2 % (20.5-51.1); MCH 29.8 PG (27-31); MCHC 34.8 g/dL (33-37); MCV 85.7 FL (81-99); MONO# 0.62 X1000 (0.11-0.59); MONO% 5.3 % (1.7-9.3); MPV 11.2 FL (7.4-10.4); NEUT# 10.11 X1000 (1.4-6.5); NEUT% 86.9 % (42.2-75.2); PLT 244 X1000 (130-400); RBC 3.15 XMIL (4.7-6.1); RDW 14.3 % (11.5-14.5); WBC 11.65 X1000 (4.8-10.8)
[2019-04-11 13:59] LABS: EOS 1 % (1-10); LYMPHS 6 % (21-51); MONO 5 % (1-9); SEGS 88 % (42-75)
[2019-04-11 14:06] LABS: ALB/GLOB RATIO 1.3; ALBUMIN 4.6 g/dL (3.5-5.0); CALCIUM 9.1 mg/dL (8.8-10.2); MAGNESIUM 1.9 mg/dL (1.5-2.7); PHOSPHORUS 3.6 mg/dL (2.7-4.5); POTASSIUM 3.9 mmol/L (3.5-5.1); TOTAL BILIRUBIN 0.56 mg/dL (0.20-1.00); TOTAL PROTEIN 8.1 g/dL (6.3-8.3)
[2019-04-11 14:08] LABS: CREATININE 5.9 mg/dL (0.7-1.2)
--- NOTE | 2019-04-11 14:49 | Diag Imaging Result Doc PS360 ---
EXAM: CT HEAD/C-SPINE W/O CONTRAST INDICATION: cant feel nor move arms or legs TECHNIQUE: This exam was performed using automated exposure control, adjustment of mA or kV according to patient size, and/or use of iterative reconstruction technique. COMPARISON: CT head dated 05/30/2018 FINDINGS: Head: There is no definite acute infarct given the limited sensitivity of CT versus MRI. There is no discrete intracranial mass, mass effect, or intracranial hemorrhage. The surrounding soft tissues are essentially unremarkable. The calvaria is intact. C-spine: The central canal appears to be grossly patent. There is no discrete fracture, subluxation, or intrinsic osseous lesion. The surrounding soft tissues are essentially unremarkable. IMPRESSION: 1.No evidence of acute intracranial pathology. 2.Unremarkable CT of the cervical spine. Electronically signed by Sam Post 04/11/2019 2:47 PM
--- NOTE | 2019-04-11 16:38 | Diag Imaging Result Doc PS360 ---
EXAM: MRI CERVICAL SPINE W/O CON INDICATION: paralysis TECHNIQUE: COMPARISON: None. FINDINGS: The osseous marrow signal is unremarkable. The cervical spinal cord signal, structures at the base the brain, and surrounding soft tissues are unremarkable. Segmental analysis of the cervical spine reveals a very small uncovertebral osteophyte at C5-6 on the right causing minimal right neuroforaminal narrowing. There is no evidence of significant disc pathology, central canal stenosis, or neuroforaminal stenosis at the other cervical levels. IMPRESSION: Very mild right neuroforaminal narrowing from an uncovertebral osteophyte at C5-6. Grossly normal cervical spine, otherwise. Electronically signed by Sam Post 04/11/2019 4:35 PM
[2019-04-11] MEDS ORDERED: ZOFRAN IV PRN (17:44)
--- NOTE | 2019-04-11 18:11 | PROVIDER DOCUMENTATION ---
This chart was entered by Maggi Whitley Scribe, acting as scribe for Danie Morse MD. HPI-Neurological Disorder - General Stated Complaint: NUMBNESS Time Seen by Provider: 04/11/19 12:25 Source: patient Allergies/Adverse Reactions: Patient Allergies Allergy/AdvReac Type Severity Reaction Status Date / Time No Known Allergies Allergy Verified 04/11/19 13:16 Home Medications: Home Medication List Medication Instructions Recorded Confirmed Last Taken Type Insulin Aspart [Novolog] 30 unit SQ AC 05/30/18 02/14/19 11/15/18 09:00 History Insulin Detemir [Levemir] 50 units SQ QHS 05/30/18 02/14/19 11/18/18 21:00 History Losartan [Cozaar] 100 mg PO QHS 05/30/18 02/14/19 11/17/18 21:00 History Amlodipine [Norvasc] 10 mg PO DAILY #30 tab 09/18/18 02/14/19 11/18/18 21:00 Rx Carvedilol [Coreg] 6.25 mg PO Q12HR #30 tab 09/18/18 02/14/19 11/17/18 21:00 Rx - History of Present Illness-Neuro Nature of Presenting Problem: Patient is a 49 year old male who presents to the ED via EMS with numbness to bilateral arms and legs. States he was at dialysis when symptoms started. Denies chest pain and shortness of breath. Severity: reports: mild Onset/Duration: reports: just prior to arrival Timing: reports: still present Context: reports: other (numbness to bilateral arms and legs) Character of Altered Mental Status: reports: N/A Any recent trauma/injury?: reports: none Character of Deficits: reports: altered sensation (numbness) New weakness or altered sensation location:: reports: RUE, RLE, LUE, LLE Cognitive Baseline: alert, oriented x3 Associated Symptoms: reports: denies symptoms Similar Symptoms Previously?: No Recently seen or treated by another doctor?: Yes Review of Systems - Adult - REVIEW OF SYSTEMS - ADULT Constitutional: reports: no symptoms reported. denies: chills, fever, fatique Eyes: reports: no symptoms reported Ears, Nose, Mouth & Throat: reports: no symptoms reported Cardiovascular: reports: no symptoms reported. denies: chest pain, irregular heart rate, palpitations Respiratory: reports: no symptoms reported. denies: cough, shortness of breath, wheezing Gastrointestinal: reports: no symptoms reported Genitourinary: reports: no symptoms reported Musculoskeletal: reports: no symptoms reported Integumentary: reports: no symptoms reported Neurological: reports: see HPI, numbness (bilateral arms and legs). denies: dizziness/vertigo, headache/migraines, seizure, syncope Psychiatric: reports: no symptoms reported Endocrine: reports: no symptoms reported Hematologic/Lymphatic: reports: no symptoms reported Allergic/Immunologic: reports: no symptoms reported All Other Systems: Reviewed and Negative Past History - Adult - PAST MEDICAL HISTORY-ADULT Review of Records: reports: Old Records Reviewed, Nursing Assessment Review, Medications Reviewed, Social history reviewed & non-contributory. Major Childhood Illnesses: reports: denies history Cardiovascular: reports: HTN, hyperlipidemia Respiratory: reports: denies history Gastrointestinal: reports: pancreatitis, other (diverticulitis) Obstetrical/Gynecological: reports: denies history Genitourinary: reports: dialysis, ESRD, kidney disease Musculoskeletal: reports: denies history Neurological: reports: denies history Psychiatric: reports: denies history Endocrine/Immune: reports: Diabetes Other Conditions: reports: denies history - PRIOR SURGERIES/PROCEDURES Surgical/Procedure History: reports: reviewed, not pertinent, appendectomy, hernia repair, orthopedic (extremity) (right shoulder) - IMMUNIZATION STATUS Childhood Immunizations: See Nurse Assessment Flu Vaccine: See Nurse Assessment - FAMILY HISTORY Family History: reviewed, not pertinent - SOCIAL HISTORY Smoking: denies Substance Use: alcohol Alcohol Use Frequency: occasionally Living Situation: family Physical Exam- Neurological - Physical Exam-Neuro Initial Vital Signs Reviewed: Yes General Appearance: alert, no apparent distress. negative: lethargic Eye Exam: bilateral eye: normal inspection HENMT: normocephalic/atraumatic, moist mucous membranes. negative: angioedema Head Injury: no evidence of injury. negative: active bleeding, lacerations, swelling Respiratory: chest non-tender, lungs clear, normal breath sounds. negative: crackles, stridor Cardiovascular: normal peripheral pulses, regular rate, rhythm. negative: tachycardia Abdominal Exam: normal bowel sounds, non tender, soft. negative: rebound Extremity: normal inspection, other (positive thrill in shunt of right arm.). 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 negative: facial droop Motor/Sensory: sensory deficit (numbness bilateral arms, legs and trunk), other (can not move bilateral arms and legs on command.) Neurologic: sensory deficit (numbness to bilateral arms, legs and trunk), other (can not move bilateral arms and legs on command.). negative: aphasia, facial droop Integumentary: normal color, normal turgor, warm/dry. negative: cyanosis Psych/Mental Status: oriented x 3, tearful. negative: anxious Progress - PLAN OF CARE/RESULTS Progress/Plan/Lab Results: Vital Signs - 8 hr 04/11/19 12:30 04/11/19 12:31 04/11/19 12:40 Temperature Pulse Rate 80 77 79 Respiratory Rate 18 14 14 Blood Pressure 184/97 O2 Sat by Pulse Oximetry 96 97 98 04/11/19 12:50 04/11/19 13:00 04/11/19 13:03 Temperature 98.1 F Pulse Rate 83 79 79 Respiratory Rate 18 16 13 Blood Pressure 184/97 O2 Sat by Pulse Oximetry 96 97 97 04/11/19 13:10 04/11/19 13:20 04/11/19 13:29 Temperature Pulse Rate 74 77 79 Respiratory Rate 15 16 16 Blood Pressure 184/97 O2 Sat by Pulse Oximetry 94 L 94 L 97 04/11/19 13:30 04/11/19 13:40 04/11/19 13:50 Temperature Pulse Rate 78 77 77 Respiratory Rate 17 18 17 Blood Pressure O2 Sat by Pulse Oximetry 96 95 94 L Laboratory Results - last 24 hr 04/11/19 04/11/19 13:30 13:30 WBC 11.65 H RBC 3.15 L Hgb 9.4 L Hct 27.0 L MCV 85.7 MCH 29.8 MCHC 34.8 RDW Std Deviation 14.3 Plt Count 244 MPV 11.2 H Immature Gran % (Auto) 0.4 Neut % (Auto) 86.9 H Lymph % (Auto) 6.2 L Hardin % (Auto) 5.3 Eos % (Auto) 0.9 Baso % (Auto) 0.3 Immature Gran # (Auto) 0.05 H Neut # (Auto) 10.11 H Lymph # (Auto) 0.72 L Hardin # (Auto) 0.62 H Eos # (Auto) 0.11 Baso # (Auto) 0.04 Segmented Neutrophils 88 H Lymphocytes 6 L Monocytes 5 Eosinophils 1 Sodium 136 Potassium 3.9 Chloride 92 L Carbon Dioxide 25 Anion Gap 19 BUN 38 H Creatinine 5.9 H Estimated GFR/1.73 m2 10 BUN/Creatinine Ratio 6 Glucose 275 H Calculated Osmolality 291 Calcium 9.1 Phosphorus 3.6 Magnesium 1.9 Total Bilirubin 0.56 AST 10 ALT 17 Alkaline Phosphatase 112 Total Protein 8.1 Albumin 4.6 Globulin 3.5 Albumin/Globulin Ratio 1.3 Orders Category Date Time Status Activity - Up with Assistance ORDERED Care 04/11/19 17:44 Active Intake and Output-Strict ORDERED Care 04/11/19 17:44 Active OT: OT EVALUATION - HOSPITAL ( DIRECTED Care 04/11/19 17:53 Ordered Vital Signs Order Q 4-HR ASSESS Care 04/11/19 17:42 Active Z-Document. for Tele Applied ORDERED Care 04/11/19 17:43 Active Renal Diet Diet 04/11/19 17:[address] HEAD/C-SPINE W/O CONTRAST [CT] Stat Exams 04/11/19 12:51 Completed MRI CERVICAL SPINE W/O CON [MRI] Stat Exams 04/11/19 15:29 Completed JO W/REFLEX [HH] Stat Lab 04/11/19 17:44 Uncollected BLOOD CULTURE [BLDCUL] Stat Lab 04/11/19 17:45 Ordered C REACTIVE PROT QUANT [CHEM] Stat Lab 04/11/19 15:30 Received CBC WITH DIFF [HEME] Routine Lab 04/12/19 06:00 Ordered CBC WITH DIFF [HEME] Stat Lab 04/11/19 13:30 Completed COMPREHENSIVE METABOLIC PANEL [CHEM] Routine Lab 04/12/19 06:00 Ordered COMPREHENSIVE METABOLIC PANEL [CHEM] Stat Lab 04/11/19 13:30 Completed FERRITIN Routine Lab 04/11/19 17:51 Uncollected FOLATE Routine Lab 04/11/19 15:30 Received MAGNESIUM [CHEM] Stat Lab 04/11/19 13:30 Completed PHOSPHORUS [CHEM] Stat Lab 04/11/19 13:30 Completed SED RATE [HEME] Stat Lab 04/11/19 15:30 Received TIBC [UIBC W TOTAL IRON] [CHEM] Routine Lab 04/11/19 15:30 Received TSH Routine Lab 04/11/19 13:30 Received UA NIMS W/REFLEX CULT [URINALYSIS] Routine Lab 04/11/19 17:44 Uncollected VITAMIN B12 Routine Lab 04/11/19 15:30 Received 0.9% Sodium Chloride Inj [Ns] 250 ml Med 04/11/19 12:49 Discontinued IV 999 mls/hr Ondansetron [Zofran] Med 04/11/19 17:44 Active 4 mg IV Q6H PRN PRN Oxygen Device Routine Oth 04/11/19 17:44 Active Pulse Oximetry Routine Oth 04/11/19 17:44 Active Telemetry [OM.EQ] Routine Oth 04/11/19 17:43 Active Physical Therapy Eval/Treatment [OM.PT] Routine Ther 04/11/19 17:44 Active Result Diagrams: 04/11/19 13:30 04/11/19 13:30 - CT/MRI 1 CT Study: Cervical Spine, Head Impression: See EMR Report ( EXAM: CT HEAD/C-SPINE W/O CONTRAST INDICATION: cant feel nor move arms or legs TECHNIQUE: This exam was performed using automated exposure control, adjustment of mA or kV according to patient size, a nd/or use of iterative reconstruction technique. COMPARISON: CT head dated 05/30/2018 FINDINGS: Head: There is no definite acute infarct given the limited sensitivity of CT versus MRI. There is no discrete intracranial mass, mass effect, or intracranial hemorrhage. The surrounding soft tissues are essentially unremarkable. The calvaria is intact. C-spine: The central canal appears to be grossly patent. There is no discrete fracture, subluxation, or intrinsic osseous lesion. The surrounding soft tissues are essentially unremarkable. IMPRESSION: 1.No evidence of acute intracranial pathology. 2.Unremarkable CT of the cervical spine. Electronically signed by Sam Post 04/11/2019 2:47 PM 04/11/19 [id number] Interpreting Physician: Sam Post MD Dictated Date/Time: 04/11/19 1440 cc: Danie Morse MD; Paul Kurtz MD) 2 MRI Study: C-Spine Impression: See EMR Report ( EXAM: MRI CERVICAL SPINE W/O CON INDICATION: paralysis TECHNIQUE: COMPARISON: None. FINDINGS: The osseous marrow signal is unremarkable. The cervical spinal cord signal, structures at the base the brain, and surrounding soft tissues are unremarkable. Segmental analysis of the cervical spine reveals a very small uncovertebral osteophyte at C5-6 on the right causing minimal right neuroforaminal narrowing. There is no evidence of significant disc pathology, central canal stenosis, or neuroforaminal stenosis at the other cervical levels. IMPRESSION: Very mild right neuroforaminal narrowing from an uncovertebral osteophyte at C5-6. Grossly normal cervical spine, otherwise. Electronically signed by Sam Post 04/11/2019 4:35 PM 04/11/19 1635 Interpreting Physician: Sam Post MD Dictated Date/Time: 04/11/19 1630 cc: Danie Morse MD; Paul Kurtz MD) - CONSULTS/PCP/HOSPITALIST Notification #1 *Consult/PCP/Hospitalist*: Dr. Kurtz Time Discussed: 15:27 Reason/Comments: Dr. Morse consulted with Dr. Kurtz about patient. Consult Disposition: other (Dr. Kurtz agrees with CT. Admit to hospitalist.) #2 Consult: JEFFERSON Granados for Hospitalist Time Discussed: 16:59 Reason/Comments: Dr. Morse consulted with Roberta about patient, said to call [facility] in [place] #3 Consult: [facility] in [place] Time Discussed: 17:20 Reason/Comments: reviewed films, nothing emergent, can admit here, consult Neurology here Departure - Departure Date of Disposition Decision: 04/11/19 Time of Disposition Decision: 18:10 DIAGNOSIS: Acute complete flaccid quadriplegia Disposition: ADMITTED INPATIENT 09 Certified Medical Emergency: Emergent Condition: Stable Referrals and Follow-Ups: Paul Kurtz MD [Primary Care Provider] - - Critical Care Note This patient required my direct & personal management of CC.: No Attestation - Physician/ EMILY Attestation The physician spent face to face time with patient:: Yes Advanced Practice Provider documentation review:: Supervising physician onsite and consulted in the evaluation and care of this patient. The physician did have a face to face encounter with the patient. - NIH Stroke Scale Level of Consciousness: 0-Alert LOC Questions (ask month and age): 0-Answers Both Correctly LOC Commands (ask to open & close eyes;make a fist, let go): 0-Obeys Both Correctly Best Gaze (horizontal eye movement): 0-Normal Visual (use finger movement, counting or visual threat): 0-No Visual Loss Facial Palsy (show teeth or raise eyebrows & close eyes tght: 0-Symmetrical Movement Motor Function-left arm: 3-No Effort Against Sargent Motor Function-right arm: 3-No Effort Against Sargent Motor Function-left le-No Effort Against Sargent Motor Function-right le-No Effort Against Sargent Limb Ataxia(hgsztf-ndry-mxehth, or heel to ryan): 0-Untestable Sensory(pin prick to face,arms,trunk,legs-compare side/side): 2-Severe to Total Sensory Loss Best Language(name item/read sentence.Ex-Down to Earth): 0-No Aphasia Dysarthria(Pt read words or say words Ex.Mama,Tip-Top,Thanks: 0-Normal Articulation Stroke tPA Guidelines - Inclusion Criteria for IV tPA 18 years old or older: Yes Ischemic stroke with measurable deficit: No Onset <3 hours ago *OR* 3-4.5 hours ago: Yes This chart was documented by the indicated scribe, (Maggi Whitley, Nga) and accurately reflects the services I performed and decisions made by me, Danie Morse MD, as attested by the provider's signature.
[2019-04-11] MEDS: ASPIRIN EC PO ONE ×2 (18:15→20:12)
[2019-04-11 18:28] LABS: IRON SATURATION 16 %; TIBC 281 ug/dL; TOTAL IRON 44 ug/dL (53-167); UNBOUND IRON 237 ug/dL (112-346)
--- NOTE | 2019-04-11 18:33 | Diag Imaging Result Doc PS360 ---
EXAM: CHEST-PORTABLE INDICATION: dyspnea TECHNIQUE: One view COMPARISON: 11/16/2018 FINDINGS: There is stable scarring at the left lung base. There is bilateral interstitial thickening suggesting mild edema. It is similar to the previous study. There is no discrete pleural fluid collection or pneumothorax. Central vasculature is mildly prominent suggesting mild pulmonary venous congestion. The heart is also mildly prominent. IMPRESSION: Suggestion of mild pulmonary venous congestion and interstitial edema. Electronically signed by Sam Post 04/11/2019 6:30 PM
[2019-04-11] MEDS ORDERED: SOLU-MEDROL IV ONE (18:37)
[2019-04-11] MEDS ORDERED: HUMULIN R SUBQ SCH (21:00)
[2019-04-11] MEDS ORDERED: LEVEMIR SUBQ ONE (21:02)
--- NOTE | 2019-04-11 22:26 | HISTORY AND PHYSICAL ---
CHIEF COMPLAINT: "I woke up after my dialysis session and I could not move my arms, legs or feel anything." HISTORY OF PRESENT ILLNESS: Mr. Pastor is a 49-year-old white male with a history of end-stage renal disease on hemodialysis, hypertension, obesity and diabetes mellitus who was brought via EMS to the ER due to a sudden onset of paralysis. The patient reports that he had just finished his dialysis session at the outpatient dialysis clinic when he noticed that he could not feel any sensation in his arms and legs and could not move at all. The patient reports that this has never happened before. The patient was able to ambulate prior to beginning his dialysis session today. The patient denies having any headache, dizziness,dysphagia, blurred vision or recent syncopal episodes. The patient also denies having any recent bacterial or viral infections. He also denies having bowel or urinary incontinence. The patient reports that he had his dialysis catheter removed recently and he has a right upper extremity fistula. In the ER, a CT of the head and cervical spine were done that were noted to be unremarkable. This was then followed by an MRI of the cervical spine that revealed mild right neural foraminal narrowing. PAST MEDICAL HISTORY: 1. Poorly controlled insulin-dependent diabetes mellitus. 2. Hypertension. 3. End stage renal disease on hemodialysis on Thursday, Thursday, and Thursday. 4. History of diverticulitis. PAST SURGICAL HISTORY: 1. Right upper extremity fistula. 2. Appendectomy. 3. Hernia repair. 4. Right shoulder arthroscopy. FAMILY HISTORY: Reviewed and noncontributory. SOCIAL HISTORY: The patient is single and lives at home with his mother. He denies any tobacco, alcohol or illicit drug use. The patient has 4 children. ALLERGIES: No known drug allergies. HOME MEDICATIONS: 1. Cozaar 100 mg p.o. daily. 2. Coreg 6.25 mg oral every 12 hours. 3. Levemir 25 units subcutaneous at bedtime. 4. Norvasc 10 mg p.o. daily. 5. NovoLog 30 units subcutaneous before meals. REVIEW OF SYSTEMS: A 12-point review of systems was obtained. Please refer to the history of present illness for pertinent positives and negatives. PHYSICAL EXAM: VITAL SIGNS: Temperature 98.1 degrees, blood pressure 184/97, heart rate 79, respirations 13, O2 saturation 97% on room air. GENERAL: This is an elderly male lying on the stretcher in no acute distress. SKIN: No rashes. No lesions. Normal capillary refill. Skin is warm. HEAD: Normocephalic, atraumatic. EYES: Conjunctiva clear, EOMI, PERRLA. NECK: Supple. No JVD. No lymphadenopathy. No carotid bruits. HEART: S1, S2 normal. Regular rate and rhythm. No murmurs, rubs, or gallops. LUNGS: Equal air entry bilaterally. No wheezing. No rales. No rhonchi. ABDOMEN: Positive bowel sounds. Soft, nontender, nondistended. EXTREMITIES: No edema. No cyanosis. No calf tenderness. NEUROLOGIC: The patient is alert and oriented x4. Speech is clear and fluent with good repetition, comprehension and naming. The patient's gaze is normal. There is no eye deviation. Facial sensation is intact to . Corneal reflexes are intact. The face is symmetric with normal eye closure and smile. Hearing is normal. Phonation is normal. Light touch, pin prick, position sense and vibration are noted to be abnormal in the lower extremities. Strength is 3/5 in the upper extremities and 1/5 in the lower extremities. LABS: White blood cell count 11.6, hemoglobin 9.4, hematocrit 27, platelets 244,000. Sodium 136, potassium 3.9, chloride 92, CO2 25, BUN 38, creatinine 5.9, glucose 275, calcium 9.1, phosphorus 3.6, AST 10, ALT 17, alkaline phosphatase 112, and troponin 0.17. C-reactive protein 6.3, sedimentation rate 84, B12 692, folate 16, iron level 44%, saturation 16. Ferritin 791. CT of the head and cervical spine reveal no acute intracranial pathology. Cervical spine MRI shows very mild right neural foraminal narrowing at C5-C6. Chest x-ray shows mild interstitial edema with venous congestion. ASSESSMENT AND PLAN: 1. Paralysis. The etiology is unknown at this time. We will order an MRI of the brain, thoracic, and lumbar spine. The patient's inflammatory markers are slightly elevated as well. May need to consider several of the immune mediated polyneuropathies in the differential (Guillain-Dickinson etc.) We will also rule out stroke. In the meantime, we will give the patient a dose of aspirin and a dose of IV steroid and consult with the Neurologist. The patient may require a lumbar puncture to assess the CSF fluid. Physical therapy and occupational therapy will be consulted. 2. Uncontrolled hypertension. We will restart the patient's antihypertensive regimen. 3. Insulin-dependent diabetes mellitus. Will will restart the Levemir and cover the patient with sliding scale insulin. The patient will be placed on a diabetic diet. 4. Leukocytosis. No obvious source of infection has been found. Blood cultures have been obtained. We will also check a urinalysis. 5. End stage renal disease. We will consult with the finance controller. The patient completed his dialysis session today. He is due for dialysis on Thursday. 6. Iron deficiency anemia. Hemoglobin and hematocrit are stable. 7. Gastrointestinal prophylaxis. We will start the patient on omeprazole. 8. Deep vein thrombosis prophylaxis. We will start the patient on heparin. cc: Malka Vargas MD MTDD
[2019-04-11] MEDS: COREG PO SCH (22:31)
[2019-04-11] MEDS: HEPARIN SUBQ SCH (22:35)
[2019-04-11] MEDS ORDERED: INSULIN PEN NEEDLES ONE (23:14)
[2019-04-12 05:50] LABS: BASO# 0.01 X1000 (0.0-0.2); BASO% 0.1 % (0.0-0.8); EOS# 0.03 X1000 (0.0-0.7); EOS% 0.4 % (0.0-10.0); HEMATOCRIT 29.4 % (42.0-52.0); HEMOGLOBIN 10.1 g/dL (14.0-18.0); IMM GRAN# 0.02 X1000 (0.0-0.04); IMM GRAN% 0.2 % (0.0-0.5); LYMPH# 0.19 X1000 (1.2-3.4); LYMPH% 2.3 % (20.5-51.1); MCH 30.6 PG (27-31); MCHC 34.4 g/dL (33-37); MCV 89.1 FL (81-99); MONO# 0.06 X1000 (0.11-0.59); MONO% 0.7 % (1.7-9.3); MPV 12.1 FL (7.4-10.4); NEUT# 7.92 X1000 (1.4-6.5); NEUT% 96.3 % (42.2-75.2); PLT 216 X1000 (130-400); RDW 14.4 % (11.5-14.5); WBC 8.23 X1000 (4.8-10.8)
[2019-04-12] MEDS: HEPARIN SUBQ SCH ×2 (05:57→12:13)
[2019-04-12] MEDS: PRILOSEC PO SCH (06:00)
[2019-04-12] MEDS ORDERED: HUMULIN R SUBQ SCH (06:15)
[2019-04-12 06:44] LABS: BANDS 2 % (0-1); LYMPHS 6 % (21-51); MONO 2 % (1-9); SEGS 90 % (42-75)
[2019-04-12 06:47] LABS: AGAP 19; CHLORIDE 88 mmol/L (98-107); POTASSIUM 5.5 mmol/L (3.5-5.1); SODIUM 127 mmol/L (136-145); TCO2 20 mmol/L (25-35)
[2019-04-12 06:48] LABS: ALB/GLOB RATIO 1.1; ALBUMIN 3.9 g/dL (3.5-5.0); ALKALINE PHOSPHATASE 116 U/L (32-122); BUN 61 mg/dL (8-22); CALCIUM 7.9 mg/dL (8.8-10.2); CHOLESTEROL 329 mg/dL (0-200); COSMO 308; CREATININE 8.2 mg/dL (0.7-1.2); ESTIMATED GFR 7; GLUCOSE 705 mg/dL (70-104); GOT 11 U/L (10-34); GPT 15 U/L (10-44); HDL 24 mg/dL (35-55); TOTAL BILIRUBIN 0.46 mg/dL (0.20-1.00); TOTAL PROTEIN 7.4 g/dL (6.3-8.3); TRIGLYCERIDES 927 mg/dL (39-160)
[2019-04-12] MEDS: LEVEMIR SUBQ SCH ×2 (07:08→08:22)
[2019-04-12] MEDS: NEURONTIN PO SCH (08:22)
[2019-04-12] MEDS: COZAAR PO SCH (08:22)
[2019-04-12] MEDS: ASPIRIN PO SCH ×2 (08:22→08:23)
[2019-04-12] MEDS: NORVASC PO SCH (08:22)
[2019-04-12] MEDS: COREG PO SCH ×2 (08:22→20:41)
[2019-04-12] MEDS ORDERED: HUMULIN R SUBQ ONE (08:25)
[2019-04-12] MEDS ORDERED: LEVEMIR SUBQ SCH (09:00)
[2019-04-12] MEDS ORDERED: HUMALOG SUBQ ONE (10:02)
--- NOTE | 2019-04-12 10:04 | Diag Imaging Result Doc PS360 ---
EXAM: MRI BRAIN W/O CONTRAST 04/11/2019 HISTORY: paralysis TECHNIQUE: Sagittal and axial T1, axial T2, FLAIR, DWI and coronal gradient echo. COMMENT: There is a somewhat empty sella. There is no evidence of mass effect, bleed, or abnormal extra-axial fluid collection. There is no evidence of restricted diffusion. No previous MRI studies are available for comparison. IMPRESSION: No evidence of acute disease. Electronically signed by Bo oMody 04/12/2019 10:01 AM
--- NOTE | 2019-04-12 10:06 | Diag Imaging Result Doc PS360 ---
EXAM: MRI THORACIC SPINE W/O CON 04/11/2019 HISTORY: Paralysis TECHNIQUE: T1-T2 and STIR sagittal, T1 and T2 axial COMMENT: There is no evidence of intrathecal signal abnormality or mass. There is no evidence of bone marrow edema. There is a hemangioma in the lower portion of the T10 vertebral body. There is no evidence of spinal stenosis. There is a cyst in the upper pole of the left kidney. IMPRESSION: No significant abnormality. Electronically signed by Bo Moody 04/12/2019 10:03 AM
--- NOTE | 2019-04-12 10:08 | Diag Imaging Result Doc PS360 ---
EXAM: MRI LUMBAR SPINE W/O CONTRAST 04/11/2019 HISTORY: paralysis TECHNIQUE: T1 and T2 and STIR sagittal, T1 and T2 axial. COMMENT: There is no evidence of intrathecal mass or signal abnormality. There is no evidence of spinal stenosis. There is desiccation of the L5-S1 disc space. At the L1-2 level there is no spinal or foraminal stenosis. At L2-3 there is no spinal or foraminal stenosis. At L3-4 there is no spinal or foraminal stenosis. At L4-5 there is no spinal or foraminal stenosis. At the L5-S1 level there is no spinal or foraminal stenosis. There are mild degenerative facet changes on the left. IMPRESSION: Minimal degenerative disc disease and left-sided facet arthropathy at L5-S1. Electronically signed by Bo Moody 04/12/2019 10:06 AM
[2019-04-12] MEDS ORDERED: D50W SYRINGE IV PRN (10:25)
[2019-04-12] MEDS ORDERED: HUMULIN R IV ONE (10:25)
[2019-04-12 11:01] LABS: CALCIUM 7.3 mg/dL (8.8-10.2); CREATININE 8.8 mg/dL (0.7-1.2); POTASSIUM 5.4 mmol/L (3.5-5.1)
[2019-04-12] MEDS: HUMULIN R 100 UNIT in NS 100 ML IV SCH ×2 (11:04→21:22)
[2019-04-12] MEDS ORDERED: NS 1,000 ML IV ONE (11:07)
--- NOTE | 2019-04-12 11:53 | PROGRESS NOTE ---
DATE: 04/12/2019 SUBJECTIVE: The patient is sitting up in bed. He is able to move his upper extremities without any difficulty. He still complains of weakness in his lower extremities. The patient refused his insulin last night. His blood sugars are now running greater than 500. OBJECTIVE: Vital Signs: Temperature 98.7 degrees, blood pressure 196/92, heart rate 91, respirations 19, O2 saturation 99% on room air. General: This is an obese male lying in bed in no acute distress. Head: Normocephalic, atraumatic. Heart: S1, S2 normal. Regular rate and rhythm. Lungs: Clear to auscultation bilaterally. No wheezes, no rales, no rhonchi. Abdomen: Positive bowel sounds. Soft, nontender, nondistended. Extremities: No edema, no cyanosis, no calf tenderness. Neurologic: The patient is alert and oriented x4. Strength 5/5 in the upper extremities. He does complain of paresthesias in the lower extremities. LABS: White blood cell count 8.2, hemoglobin 10, hematocrit 29, platelets 216. Sodium 121, potassium 5.4, chloride 82, CO2 18. BUN 69, creatinine 8.8, glucose 832, calcium 7.3. ASSESSMENT AND PLAN: 1. Lower extremity weakness. The imaging of the patient's spine was noted to be negative. Also, the MRI of the brain is unremarkable. Physical therapy as well as occupational therapy have been consulted to work with the patient. We will also await further recommendations from the neurologist. 2. Diabetic ketoacidosis. The patient will be started on the diabetic ketoacidosis protocol, which will include a insulin drip and intravenous fluids. We will monitor the patient's volume status closely since he is a dialysis patient. 3. Uncontrolled insulin-dependent diabetes mellitus. Aware. The patient is on the DKA protocol at this time. 4. Uncontrolled hypertension. Will increase the coreg dosage to 12.5mg BID. 5. Hyperlipidemia. The patient's total cholesterol is 329. The patient would likely benefit from statin therapy. We will start Lipitor today. 6. Right IJ thrombosis. Seen on the carotid doppler study. The official report is pending. Will start a heparin drip and consult with the digital recruiter for further recommendations on length of therapy and anticoagulant choice. cc: MD FELIX Hamilton
[2019-04-12 13:12] LABS: HEMOGLOBIN A1C 10.2 % (4.8-6.0)
--- NOTE | 2019-04-12 13:56 | ECHO REPORT ---
ORDER DATE: 04/12/2019 INTERPRETING PHYSICIAN: Dr. Celestine Weaver. ECHOCARDIOGRAPHIC MEASUREMENTS: 1. Interventricular septum: 1.0 cm. 2. Left ventricular posterior wall: 1.1 cm. 3. Diastolic diameter: 5.4 cm. 4. Left atrium: 3.3 cm. 5. Aorta: 3.4 cm. SUMMARY OF THE 2-DIMENSIONAL IMAGIN. Aortic valve leaflets are trileaflet. 2. Pulmonic valve was normal. 3. Mitral valve was normal. 4. Tricuspid valve was normal. There is mild tricuspid regurgitation. Peak velocity across the tricuspid valve was 3 m/sec. 5. Pulmonary artery systolic pressure 46 mmHg. 6. There is moderate mitral regurgitation. 7. Peak velocity across the aortic valve was less than 2 m/sec. There is no aortic stenosis or regurgitation. CONCLUSIONS: 1. Normal left ventricular cavity size. Estimated ejection fraction of 65%. 2. There is moderate mitral regurgitation. 3. There is no pericardial effusion. cc: MD Malka Boone MD
--- NOTE | 2019-04-12 14:10 | NEPHROLOGY CONSULTATION ---
DATE: 04/12/2019 REASON FOR ADMISSION: Paralysis with no feeling to upper and lower extremities. REASON FOR CONSULT: End-stage renal disease with assist with treatment and evaluation. CONSULTING PHYSICIAN: Malka Vargas MD. HISTORY OF PRESENT ILLNESS: Mr. Pastor is a 49-year-old, white male who has end-stage renal disease, who is on dialysis on Thursday, Thursday, Thursday at the [facility]. The patient had woken up and gone into his dialysis treatment, woke up in the middle of his treatment stating that he could not move or feel his arms and legs. He was able to talk. He was able to move his head. He states that he was able to breathe. No difficulty breathing. No recent falls. He denied chest pain. No increased work of breathing, as mentioned. No nausea, vomiting, or diarrhea. He had no changes of vision. No dizziness. No dysphasia. No blurred vision. Does not remember having a syncopal episode. No urinary incontinence. Due to these findings, Dr. Kurtz was notified. He was taken off dialysis and sent to the ER via ambulance. CT of the head and cervical spine, lumbar spine with MRI were complete, showing mild right neuroforaminal narrowing with degenerative disk disease. No acute findings. PAST MEDICAL HISTORY: End-stage renal disease with hemodialysis on Thursday, Thursday, Thursday at the [facility], poorly-controlled insulin-dependent diabetes mellitus type 2, hypertension, history of diverticulitis, anemia of chronic disease, osteodystrophy of chronic disease, chronic pain of lower back. PAST SURGICAL HISTORY: Right upper arm AV fistula, appendectomy, hernia repair, right shoulder arthroscopy. FAMILY HISTORY: Noncontributory to end-stage renal disease. SOCIAL HISTORY: He is single. He lives at home with his mother. He has a friend who is at his bedside. Denies any tobacco, alcohol, or illicit drug use. The patient has 4 children. ALLERGIES: Listed as no known drug allergies. HOME MEDICATIONS: Cozaar, Coreg, Levemir, Norvasc, NovoLog. Patient receives Hectorol, Mircera, Protonix at the outpatient clinic, along with Aranesp if indicated for anemia. REVIEW OF SYSTEMS: Times 10 with pertinent positives listed above in the HPI. VITAL SIGNS: The patient's most recent vital signs, his last temperature 98.2 degrees, blood pressure 187/96, heart rate 81, respirations 23. He is on room air. Last recorded saturation is 98%. He has had 120 in. He has had 0 recorded out. Minimal void with dialysis assist. LABS: This a.m., sodium 121, potassium 5.4, chloride is 82, CO2 of 18, BUN 69, creatinine is 8.8. Patient had an elevated blood sugar of 705 on admission this a.m., up to 832 now on diabetic ketoacidosis protocol. White count 8.23, hemoglobin 10.1, hematocrit 29.4, with a platelet count of 216,000. His LDL is not reportable. Cholesterol 329, triglycerides 927, HDL 24. The patient had an JO completed upon admission which was negative. Neurology consult currently on the chart. PHYSICAL EXAMINATION: General: This is a 49-year-old, white male who is resting quietly in bed. He is alert and oriented x3. He is able to give an accurate detailed history. Denies chest pain or increased work of breathing. Able to move all extremities, though unable to determine sharp from dull to his upper extremities and lower extremities. Vital Signs: Temperature 98.2 degrees, blood pressure 187/96, heart rate 81, respirations 23. He is on room air. Last recorded saturation 98%. He has had 120 in, 0 recorded out. HEENT: Normocephalic, atraumatic. Conjunctivae are pale. He has CLAUDINE. Mucous membranes are dry. Neck: Supple. Trachea midline. No JVD. Cardiovascular: Regular rate and rhythm. He is without murmur or gallop. Lungs: Clear to auscultation bilaterally. Equal excursion, on room air. Abdomen: Soft, large, nontender. Positive bowel sounds. Genitourinary: Not inspected. Minimal void with dialysis assist. Extremities: Have no edema. No clubbing or cyanosis. Right forearm with AV fistula. This has a good palpable thrill. Neurological: The patient has neighborhood coordinator 3/5. Unable to determine dull versus sharp sensation in upper and lower extremities, minimal push-pull. ASSESSMENT AND PLAN: 1. Chronic kidney disease stage 5D. The patient is due for his routine dialysis treatment in the morning. No indications for intervention today. 2. Electrolytes and acid-base balance. These are acceptable. 3. Anemia. This is close to target. 4. Lower extremity weakness. Imaging of MRI spine is negative. MRI brain unremarkable. He does have degenerative disk disease noted on lumbar and cervical spine. Physical therapy has been consulted, along with neurology. 5. Hyperglycemia. The patient's blood sugar in the 800s. This is being followed by the primary care. He is now on diabetic ketoacidosis protocol. 6. Uncontrolled hypertension. The patient has been restarted on his home medications, followed by the primary care at this time. I would like to thank you for allowing us to follow with this patient. Dictated by JEFFERSON Farnsworth for Paul Kurtz MD Face to face encounter, data reviewed, discussed with Alka Trejo on 04/12/19. I agree with the above assessment and plan of care. cc: JEFFERSON Farnsworth MD [facility]
[2019-04-12 15:35] LABS: PHOSPHORUS 4.2 mg/dL (2.7-4.5)
--- NOTE | 2019-04-12 16:28 | CONSULTATION ---
DATE OF CONSULTATION: 04/12/2019 SUBJECTIVE: Mr. Pastor reports sleeping as he completed dialysis yesterday. He reports sense of numbness in all limbs and a sense that he could not move any of his limbs. He did not have any problems above the neck. Specifically, there was no trouble with chewing, swallowing, speaking. There was no problem with eye movements or diplopia. There was no report of facial asymmetry. He did not have headache. There was no loss of bowel or bladder control. He makes very little urine, but lack of bowel incontinence was notable. He reports significant spontaneous recovery through the day today. He believes there is still numbness in the hands worse than baseline. He believes he may still be weak in the legs, worse than baseline. Prior to this incident, he had not had similar problems. He did have chronic numbness in the hands and feet attributed to diabetic neuropathy. There has been some dysesthesia at times. PAST MEDICAL HISTORY: Remarkable for hypertension, diabetes mellitus, end-stage renal disease managed with hemodialysis. LABORATORY DATA: Workup here includes lab showing sedimentation rate 84, WBC initially 16016 down to 8000, anemia. BUN has climbed this admission from 38 to 61. Blood sugar was 275, later 705 and most recently 832. Triglycerides elevated 927. Total cholesterol elevated at 329. Sodium initially 136, later 127 and most recently 121. IMAGING: Includes noncontrast CT of the head showing nothing remarkable. Brain MRI shows empty sella and nothing else remarkable. Lumbar MRI shows degenerative changes and nothing else remarkable. Carotid ultrasound showed no hemodynamically significant stenosis in the internal carotid bilaterally and evidence of right jugular DVT. OBJECTIVE: On exam, Mr. Pastor is awake, alert, attentive. He seems appropriate. Speech is not dysarthric. Language function is intact on brief bedside testing. Recent and remote memory are good. Head and neck are unremarkable. Straight leg raising is negative bilaterally. Hands and feet are warm. He has full visual bradford tested grossly by confrontational finger counting. Extraocular movements are full. Facial motility is symmetric. He reports good pinprick and light touch appreciation across the face. Gag is intact. Tongue is midline. He can hear. Shoulder shrug is good bilaterally. Strength grades 4+/5 in the deltoids, biceps, wrist extensors and 4/5 in the instructional leader bilaterally, 5/5 in the thumb extensors and 4/5 in the 1st dorsal interosseous bilaterally. Strength grades 4/5 in the iliopsoas, anterior tibialis and gastrocnemius bilaterally. Tone is symmetric in the limbs. He reports diminished pinprick and light touch appreciation in a stocking/glove pattern bilaterally, much more prominent over the legs. Proprioception is very poor at the great toe MTP joint bilaterally and moderately diminished at the ankle bilaterally. Proprioception is almost normal at the second finger MCP joint. Reflexes are absent at the ankles. Plantar response is silent bilaterally. I did not test his gait. IMPRESSION: 1. Subjective sense of weakness and numbness in all limbs. Report of spontaneous recovery, lack of bowel incontinence and lack of significant motor finding on exam now are all reassuring. Negative imaging is reassuring. I do not think we need to do anything further from a neurologic standpoint right now. We can consider EMG and nerve conduction study later depending on his clinical course. 2. Ultrasound evidence of right jugular thrombosis. No clinical or imaging evidence of cerebral vein thrombosis, septic cerebral emboli or PE. Consider course of antibiotics and increase heparin or add warfarin or newer agent for anticoagulation. Thanks for asking Neurology to see Mr. Pastor. cc: Andre Piedra III, MD [facility]
[2019-04-12 16:31] LABS: CALCIUM 7.9 mg/dL (8.8-10.2); CREATININE 9.5 mg/dL (0.7-1.2); MAGNESIUM 2.2 mg/dL (1.5-2.7); PHOSPHORUS 3.7 mg/dL (2.7-4.5); POTASSIUM 4.3 mmol/L (3.5-5.1)
[2019-04-12] MEDS ORDERED: HEPARIN 25,000 UNIT in NS 250 ML IV SCH (19:15)
[2019-04-12 20:03] LABS: CALCIUM 7.7 mg/dL (8.8-10.2); CREATININE 9.8 mg/dL (0.7-1.2); MAGNESIUM 2.2 mg/dL (1.5-2.7); PHOSPHORUS 4.6 mg/dL (2.7-4.5); POTASSIUM 4.5 mmol/L (3.5-5.1)
[2019-04-12] MEDS: LIPITOR PO SCH (20:41)
[2019-04-12] MEDS ORDERED: HEPARIN IV ONE ×2 (20:55→21:10)
[2019-04-12 23:56] LABS: CREATININE 10.1 mg/dL (0.7-1.2); MAGNESIUM 2.1 mg/dL (1.5-2.7); PHOSPHORUS 5.5 mg/dL (2.7-4.5); POTASSIUM 4.3 mmol/L (3.5-5.1)
[2019-04-13 03:56] LABS: CALCIUM 8.5 mg/dL (8.8-10.2); PHOSPHORUS 6.8 mg/dL (2.7-4.5); POTASSIUM 4.3 mmol/L (3.5-5.1)
[2019-04-13 03:57] LABS: CREATININE 10.4 mg/dL (0.7-1.2)
[2019-04-13] MEDS: PRILOSEC PO SCH (05:59)
[2019-04-13] MEDS ORDERED: NS 2,000 ML MISC PRN (06:32)
[2019-04-13] MEDS ORDERED: TIGHT: 0.2 ML/HR FOR DIALYSIS MISC PRN (06:32)
[2019-04-13] MEDS ORDERED: HEPARIN IV PRN ×2 (06:32→14:29)
[2019-04-13 07:35] LABS: HEMATOCRIT 23.9 % (42.0-52.0); HEMOGLOBIN 8.2 g/dL (14.0-18.0); MCH 30.6 PG (27-31); MCHC 34.3 g/dL (33-37); MCV 89.2 FL (81-99); MPV 11.8 FL (7.4-10.4); RBC 2.68 XMIL (4.7-6.1); RDW 14.2 % (11.5-14.5); WBC 11.62 X1000 (4.8-10.8)
[2019-04-13 07:55] LABS: CALCIUM 8.4 mg/dL (8.8-10.2); POTASSIUM 4.3 mmol/L (3.5-5.1)
[2019-04-13 08:08] LABS: CREATININE 11.8 mg/dL (0.7-1.2)
[2019-04-13] MEDS: COREG PO SCH ×2 (08:28→21:28)
[2019-04-13] MEDS: NORVASC PO SCH (08:28)
[2019-04-13] MEDS: COZAAR PO SCH (08:28)
[2019-04-13] MEDS: ASPIRIN PO SCH (08:30)
--- NOTE | 2019-04-13 09:53 | PROGRESS NOTE ---
DATE: 04/13/2019 SUBJECTIVE: Mr. Pastor reports no significant change in his limb symptoms overnight. There has been no deterioration. He is due for dialysis today. OBJECTIVE: Limb tone continues normal and symmetric. He has good power in technical program manager. He reports poor proprioception at the 2nd finger PIP joint today. Sensory is diminished to pinprick over fingers and returns gradually across forearm. Facial motility continues normal and symmetric. Speech is not dysarthric. Tongue is midline. Gag is intact. Extraocular movements are normal bilaterally. ASSESSMENT AND PLAN: I reviewed the negative workup findings with him. I do not have any urgent suggestion today. Nothing to add to thoughts outlined yesterday. Might consider NCV/EMG electively. Thanks for asking Neurology to see Mr. Pastor. cc: MD FELIX Lobato III
[2019-04-13 12:07] LABS: CALCIUM 8.6 mg/dL (8.8-10.2); MAGNESIUM 2.4 mg/dL (1.5-2.7); PHOSPHORUS 8.1 mg/dL (2.7-4.5)
[2019-04-13 12:26] LABS: CREATININE 11.7 mg/dL (0.7-1.2)
--- NOTE | 2019-04-13 12:44 | NEPHROLOGY PROGRESS NOTE ---
DATE: 04/13/2019 SUBJECTIVE: Mr. Pastor is resting quietly in bed. He is sitting up, flexing his muscles in his hands and feet, states that they still feel numb. OBJECTIVE: Vital Signs: Temperature 98.2 degrees, blood pressure 144/69, heart rate 68, respirations are 12, he is on room air, last recorded saturation is 98%. Intake and Output: He has had 862 in. He has had 100 out to void. DIAGNOSTIC STUDIES: Sodium 133, potassium 4.3, chloride 92, CO2 of 20, BUN 87, creatinine 10.4, glucose 176, his anion gap is 21, calcium 8.5, phosphorus 6.8. Magnesium 2.2. Previous hemoglobin 10.1. White count 11.62, hemoglobin 8.2, hematocrit 23.9, with a platelet count of 200,000. Cultures show no growth after 48 hours. He has been seen by Dr. Piedra. The patient is now on heparin secondary to an ultrasound evidence of right jugular thrombosis. No evidence of cerebral vein thrombosis, septic cerebral emboli, or PE. PHYSICAL EXAMINATION: This is a 49-year-old white male, resting quietly in bed. He appears in no acute distress. His skin is warm and dry.HEENT: Normocephalic, atraumatic. Conjunctiva is pale pink. He has CLAUDINE. Mucous membranes are dry. Neck: Supple. Trachea midline. No evidence of JVD. Cardiovascular: Regular rate and rhythm, without murmur or gallop. His lungs are clear to auscultation bilaterally. Equal excursion on room air. Abdomen: Soft, large, nontender. Positive bowel sounds. Genitourinary: Not inspected. Minimal void with dialysis assist. Extremities: With no edema. No clubbing or cyanosis. Right forearm with AV fistula, palpable thrill. Neurological: His classifying machine operator is slightly stronger at 4/5. Moves all 4 extremities well with adequate push-pull to his lower extremities. ASSESSMENT AND PLAN: 1. Chronic kidney disease, stage 5D. The patient is due for his routine dialysis treatment today. He is to be placed on a 2 K bath, dialyze for 3-1/2 hours. We will pull him to his outpatient dry weight. 2. Electrolytes and acid-base balance. These are acceptable with correction on dialysis. 3. Anemia. Hemoglobin of 10.1. 4. Lower extremity paralysis, temporary with recovery of movement. Now followed by Dr. Piedra. 5. Uncontrolled hypertension. This has improved on home medications. Followed by primary care. I would like to thank you for allowing us to follow with this patient. Dictated by JEFFERSON Farnsworth for Paul Kurtz MD Face to face encounter, data reviewed, discussed with Alka Trejo on 04/13/19. I agree with the above assessment and plan of care. cc: JEFFERSON Farnsworth MD [facility]
[2019-04-13] MEDS ORDERED: LEVEMIR SUBQ ONE (14:33)
[2019-04-13] MEDS: HUMULIN R SUBQ SCH ×3 (15:14→23:33)
--- NOTE | 2019-04-13 16:19 | HEMO/ONC CONSULTATION ---
DATE: 04/13/2019 CONSULTATION REQUESTED BY: The hospitalist service. REASON FOR CONSULTATION: IJ thrombus. HISTORY OF PRESENT ILLNESS: Mr. Pastor is a 49-year-old male with a history of end-stage renal disease, currently on hemodialysis, who presented to the ER initially due to sudden onset of paralysis. The patient reported on admission that he had recently had his dialysis catheter removed on the right. The patient was admitted to the hospital for further evaluation and treatment. His catheter was removed last . Carotid Doppler was done during the patient's workup and he was found to have a right IJ thrombus. He is now currently on a heparin drip and we have been consulted to assist in choice of anticoagulant and duration of treatment. PAST MEDICAL HISTORY: 1. Poorly controlled diabetes mellitus. 2. End-stage renal disease. He gets hemodialysis on Thursday, Thursday, and Thursday. 3. Hypertension. 4. History of diverticulitis. PAST SURGICAL HISTORY: 1. Right upper extremity fistula. 2. Appendectomy. 3. Hernia repair. 4. Right shoulder arthroscopy. 5. Recent removal of dialysis catheter. FAMILY HISTORY: We reviewed and is noncontributory. The patient reports no family history of blood clots. SOCIAL HISTORY: The patient lives with his mother. He is unmarried. He denies any tobacco, alcohol or illicit drug use. REVIEW OF SYSTEMS: A 12 point review of systems has been obtained and is negative except for expressed in the HPI. PHYSICAL EXAMINATION: Vital Signs: Temperature 97.2, heart rate 64, respirations 17, blood pressure 129/73, O2 saturation 99% on room air. General: The patient is lying in hospital bed in no acute distress. Head: Normocephalic, atraumatic. Eyes: Pupils equal, round, and reactive. Ears, Nose, Throat, Neck, Mouth: Mucosa normal. Cardiovascular: S1, S2 heard. Respiratory: Essentially clear to auscultation bilaterally. No rhonchi, rales, or wheezing noted. Gastrointestinal: Abdomen is soft. Positive bowel sounds. Musculoskeletal: No obvious bony abnormalities. Neurologic: Patient is alert and oriented. LABS AND STUDIES: He has an IJ thrombus per the notes. The official report does not seem to be in the system quite yet. White blood cells 11.62, hemoglobin 8.2, platelet count 200,000. Sodium 135, potassium 4.0, creatinine 11.7. ASSESSMENT AND PLAN: 1. Acute internal jugular thrombus. The patient had dialysis catheter removed last . This is a provoked blood clot. He has no prior history of clots. He cannot take Xarelto, Eliquis, or Lovenox due to his end-stage renal disease. We recommend that the patient be placed on Coumadin and titrate until his INR is therapeutic between 2 and 3. Continue heparin throughout stabilization to therapeutic range. The patient will need three months of anticoagulation therapy and then he can likely stop treatment. Coumadin can be managed by his primary care physician once he is discharged. 2. Lower extremity weakness. He has been evaluated by Neurology. Continue per Dr. Piedra's recommendations. 3. Diabetic ketoacidosis. Continue per the hospitalist team. 4. Uncontrolled insulin dependent diabetes mellitus. He continues on diabetic ketoacidosis protocol as per above. 5. Uncontrolled hypertension. Continue management and adjustment of medications per the primary team. Dictated by JESE Arnold for Renate Waldrop MD cc: Renate Waldrop MD I have seen and examined the patient and the above note reflects my history, physical, assessment and plan. Renate W[place]
--- NOTE | 2019-04-13 18:30 | PROGRESS NOTE ---
DATE: 04/13/2019 SUBJECTIVE: The patient states that he still has a lot of numbness and tingling in his arms. He states that he still having a lot of difficulty standing due to numbness in his feet. He states that he is hungry. OBJECTIVE: Vital signs: Temperature 97.2 degrees, blood pressure 129/73, heart rate 64, respirations 17, O2 saturation 99% on room air.General: This is a chronically ill-appearing elderly male lying in bed, in no acute distress. Head normocephalic, atraumatic. Heart: S1, S2 normal. Regular rate and rhythm. Lungs clear to auscultation bilaterally. No wheezing. No rales. No rhonchi. Abdomen: Positive bowel sounds. Soft, nontender, nondistended. Extremities: No edema. No cyanosis. No calf tenderness. Neurologic: The patient is alert and oriented x4. He continues to complain of paresthesias and numbness in his hands and legs. LABORATORY DATA: White blood cell count 11, hemoglobin 8.2, hematocrit 23, platelets 200,000. Sodium 135, potassium 4, chloride 93, CO2 is 20, BUN 96, creatinine 11, glucose 103, phosphorus 8.1, magnesium 2.4, calcium 8.6. ASSESSMENT AND PLAN: 1. Lower extremity weakness with paresthesias. Continue with physical therapy and occupational therapy. The patient may need inpatient rehabilitation. We will consult with Plumbing And Heating Mechanic. 2. Diabetic ketoacidosis. We will transition the patient to long-acting insulin and sliding scale insulin. We will also place the patient on a diabetic diet. 3. Uncontrolled insulin-dependent diabetes mellitus. The patient's A1c is 10. We will adjust the patient's long-acting insulin dosage. 4. ESRD on hemodialysis. Management as per the brand marketing intern. 5. Hypertension. Controlled. Continue on the current antihypertensive regimen. 6. Hyperlipidemia. Continue on Lipitor. 7. Right internal jugular thrombosis. The patient has been seen by Hematology and they are recommending anticoagulation with warfarin. Continue with the heparin drip. We will start warfarin today and monitor the INR. 8. Anemia. We will continue to monitor the hemoglobin and hematocrit closely. cc: MD FELIX Hamilton
--- NOTE | 2019-04-13 20:53 | Carotid Study ---
DATE: 04/11/2019 PROCEDURE: Carotid duplex imaging. REFERRING PHYSICIAN: Malka Vargas MD. INTERPRETING PHYSICIAN: Simba Adams MD. TECH: [place]. INDICATIONS: Paralysis, possible stroke. OBSERVED DATA RIGHT LEFT Brachial Blood Pressure Carotid Pulse Bruits: Carotid/Sub DIAGRAM OF ULTRASOUND IMAGING R L RIGHT INT EXT INT EXT LEFT Wesley (cm/s) Wesley (cm/s) Subclavian Subclavian CCA Proximal CCA Proximal CCA Distal CCA Distal Bulb Bulb ICA Proximal ICA Proximal ICA Mid ICA Mid ICA Distal ICA Distal ECA ECA Vertebral Vertebral ICA/CCA Ratio ICA/CCA Ratio % Stenosis % Stenosis FINDINGS: The right internal jugular vein was noted to have thrombus and decreased compressibility. The common and internal carotid arteries have no significant plaque disease, turbulent flow, or significant stenoses. Percent stenosis is 0-39% bilaterally. PHYSICIAN INTERPRETATION: Normal carotid artery imaging study with incidental note of right internal jugular vein DVT. cc: MD Malka Olsen MD
[2019-04-13] MEDS ORDERED: COUMADIN PO SCH (21:00)
[2019-04-13] MEDS: LIPITOR PO SCH (21:27)
[2019-04-13] MEDS: NEURONTIN PO SCH (21:28)
[2019-04-13] MEDS: HEPARIN 25,000 UNIT in NS 250 ML IV SCH (23:35)
[2019-04-14 01:54] LABS: CALCIUM 7.7 mg/dL (8.8-10.2); CREATININE 7.1 mg/dL (0.7-1.2); POTASSIUM 3.3 mmol/L (3.5-5.1)
[2019-04-14] MEDS: HUMULIN R SUBQ SCH ×5 (03:25→20:00)
[2019-04-14 05:35] LABS: HEMATOCRIT 24.7 % (42.0-52.0); HEMOGLOBIN 8.5 g/dL (14.0-18.0); INR 1.04; MCH 31.5 PG (27-31); MCHC 34.4 g/dL (33-37); MCV 91.5 FL (81-99); MPV 11.9 FL (7.4-10.4); PROTIME 14.4 Seconds (11.0-16.0); RBC 2.7 XMIL (4.7-6.1); RDW 14.8 % (11.5-14.5); WBC 9.5 X1000 (4.8-10.8)
[2019-04-14] MEDS: PRILOSEC PO SCH ×2 (05:35→07:48)
[2019-04-14 05:52] LABS: ALBUMIN 3.2 g/dL (3.5-5.0); CALCIUM 7.5 mg/dL (8.8-10.2); CREATININE 7.9 mg/dL (0.7-1.2); PHOSPHORUS 6.7 mg/dL (2.7-4.5); POTASSIUM 3.5 mmol/L (3.5-5.1)
[2019-04-14] MEDS ORDERED: INSULIN PEN NEEDLES ONE (08:17)
[2019-04-14] MEDS ORDERED: LEVEMIR SUBQ SCH ×2 (09:00→21:00)
[2019-04-14] MEDS ORDERED: MYLICON PO PRN (09:30)
[2019-04-14] MEDS: COZAAR PO SCH (09:32)
[2019-04-14] MEDS: NEURONTIN PO SCH ×2 (09:32→20:54)
[2019-04-14] MEDS: ASPIRIN PO SCH (09:32)
[2019-04-14] MEDS: NORVASC PO SCH (09:32)
[2019-04-14] MEDS: COREG PO SCH ×2 (09:32→20:54)
--- NOTE | 2019-04-14 12:28 | PROGRESS NOTE ---
DATE: 04/14/2019 SUBJECTIVE: Mr. Pastor reports some discomfort in the fingers of both hands. He reports the fingertips of his left hand have been particularly sensitive to recent fingersticks to check blood sugar. He does not report any new neurologic deficit today. OBJECTIVE: On exam, he is awake and alert. He has good power in the hands. His ability to distinguish pinprick from light touch is improved over the fingertips on each hand today compared to yesterday. Proprioception is definitely improved at the right index finger PIP joint. Hands are warm. PLAN: I do not have any new thoughts or new suggestions. I encouraged him to be aggressive with management of his medical problems. We discussed dysesthesia, and I expect some of his current complaints will improve over time. Thank you for asking Neurology to see Mr. Pastor. cc: MD FELIX Lobato III
--- NOTE | 2019-04-14 13:01 | NEPHROLOGY PROGRESS NOTE ---
DATE: 04/14/2019 TIME SEEN: 0800. SUBJECTIVE: Mr. Pastor is resting quietly in bed. PHYSICAL EXAMINATION: No acute distress. Skin is warm and dry. HEENT: Normocephalic, atraumatic. Conjunctiva are pale. He has CLAUDINE. Mucous membranes are dry. Neck is supple. Trachea midline. No evidence of JVD. Cardiovascular: He is regular rate and rhythm. He has an S4. His lungs are clear to auscultation bilaterally. Equal excursion, on room air. Abdomen is soft, nontender. Positive bowel sounds. Genitourinary: Not inspected. Minimal void with dialysis assist. Extremities have a fistula to the left forearm. This is dry and intact. No edema of lower extremities. Neurological: Patient continues with numbness and tingling to his hands. Able to move all 4 extremities well. He has been up walking with the walker, working with physical therapy. Vital Signs: Temperature is 98.8 degrees, blood pressure 162/85, heart rate 71, respirations 22. He is on room air. He has had 98% saturation. No intake and output recorded. LABORATORY DATA: Sodium 138, potassium 3.5, chloride is 96, CO2 is 25, BUN 58, creatinine 7.9, glucose is 224, anion gap 17, calcium 7.5, phosphorus 6.7, albumin 3.2. White count 9.5, hemoglobin 8.5, hematocrit 24.7, with a platelet count of 215,000. Patient's iron is 44, iron saturation is 16%, his B12 is 692, with a folate of 16, ferritin 791. The patient is not on a multivitamin. We will go ahead and start renal vitamin today per [employer]. ASSESSMENT AND PLAN: 1. Chronic kidney disease stage 5D. The patient tolerated his dialysis treatment yesterday. No indications for intervention today. 2. Electrolytes, acid-base balance, and anemia. These are acceptable. We are starting him on a renal vitamin today. 3. Lower extremity paralysis, temporary with recovery. Followed by Dr. Piedra. Receiving physical therapy. I would like to thank you for allowing us to follow with this patient. Dictated by JEFFERSON Farnsworth for Paul Kurtz MD Face to face encounter, data reviewed, discussed with Alka Trejo on 04/14/19. I agree with the above assessment and plan of care. blayne Wasserman#: [id number] cc: JEFFERSON Farnsworth MD MTDD
[2019-04-14] MEDS ORDERED: HUMALOG SUBQ SCH (16:00)
[2019-04-14] MEDS: HEPARIN 25,000 UNIT in NS 250 ML IV SCH (16:24)
--- NOTE | 2019-04-14 16:41 | PROGRESS NOTE ---
DATE: 04/14/2019 SUBJECTIVE: The patient continues to complain of numbness and tingling in his hands and feet. He is able to stand but struggles to take any steps. OBJECTIVE: Vital Signs: Temperature 98.5 degrees, blood pressure 141/46, heart rate 73, respirations 16, O2 saturation IS 97% on room air. General: This is a chronically ill-appearing elderly male, lying in bed, in no acute distress. Heart: S1, S2 normal. Regular rate and rhythm. Lungs: Equal air entry bilaterally. No wheezing. No rales. No rhonchi. Abdomen: Positive bowel sounds. Soft, nontender, nondistended. Extremities: No edema, no cyanosis. Neurologic: The patient is alert and oriented x4. Strength is 5/5 in the upper extremities. LABORATORY DATA: White blood cell count 9.5, hemoglobin 8.5, hematocrit 24, platelets 215,000. INR 1. Sodium 136, potassium 3.3, chloride 95, CO2 of 25, BUN 54, creatinine 7.1, glucose 332. ASSESSMENT AND PLAN: 1. Lower extremity weakness with paresthesias. Will increase the patient's gabapentin dosage. Continue with occupational therapy and physical therapy. Workforce Management Coordinator has been consulted for inpatient rehabilitation placement. 2. Diabetic ketoacidosis. Resolved. 3. Uncontrolled insulin-dependent diabetes mellitus. We will start the patient on Levemir 55 units subcutaneous twice a day and add Humalog 20 units before each meal at bedtime. We will continue to monitor the patient's blood sugars closely. 4. Hypertension. Continue on the current antihypertensive regimen. 5. Hyperlipidemia. Continue on Lipitor. 6. End stage renal disease on hemodialysis. The patient is due for dialysis tomorrow. Management as per Dr. Kurtz. 7. Right internal jugular thrombosis. We will continue on the heparin drip plus Coumadin combination. The goal INR is between 2 and 3. He will need 3 months of therapy as per hematology. 8. Anemia. Stable. DISPOSITION: Workforce Management Coordinator is working on inpatient rehabilitation placement for the patient. cc: Malka Vargas MD [facility]
[2019-04-14] MEDS: LIPITOR PO SCH (20:54)
[2019-04-14] MEDS: HUMALOG SUBQ SCH (20:55)
[2019-04-14] MEDS ORDERED: COUMADIN PO SCH (21:00)
[2019-04-14] MEDS: LEVEMIR SUBQ SCH (21:56)
[2019-04-15] MEDS: HUMULIN R SUBQ SCH ×6 (00:02→21:03)
[2019-04-15] MEDS ORDERED: NS 2,000 ML MISC PRN (06:24)
[2019-04-15] MEDS ORDERED: HEPARIN IV PRN (06:24)
[2019-04-15] MEDS ORDERED: TIGHT: 0.2 ML/HR FOR DIALYSIS MISC PRN (06:24)
[2019-04-15] MEDS: PRILOSEC PO SCH (06:27)
[2019-04-15] MEDS: HUMALOG SUBQ SCH ×3 (06:51→16:59)
[2019-04-15 07:39] LABS: HEMATOCRIT 25.6 % (42.0-52.0); HEMOGLOBIN 8.5 g/dL (14.0-18.0); MCH 30.1 PG (27-31); MCHC 33.2 g/dL (33-37); MCV 90.8 FL (81-99); MPV 11.9 FL (7.4-10.4); RBC 2.82 XMIL (4.7-6.1); RDW 14.6 % (11.5-14.5); WBC 9.54 X1000 (4.8-10.8)
[2019-04-15 07:41] LABS: INR 1.06; PROTIME 14.7 Seconds (11.0-16.0)
[2019-04-15 08:13] LABS: AGAP 21; BUN 76 mg/dL (8-22); CHLORIDE 98 mmol/L (98-107); COSMO 302; GLUCOSE 100 mg/dL (70-104); POTASSIUM 3.7 mmol/L (3.5-5.1); SODIUM 140 mmol/L (136-145); TCO2 21 mmol/L (25-35)
[2019-04-15 08:14] LABS: ALBUMIN 3.3 g/dL (3.5-5.0); CALCIUM 7.7 mg/dL (8.8-10.2); PHOSPHORUS 9.2 mg/dL (2.7-4.5)
[2019-04-15 08:18] LABS: CREATININE 10.5 mg/dL (0.7-1.2)
[2019-04-15] MEDS ORDERED: EPOGEN SUBQ ONE (10:10)
--- NOTE | 2019-04-15 11:52 | NEPHROLOGY PROGRESS NOTE ---
DATE: 04/15/2019 SUBJECTIVE: No new complaints. He states he did stand up and take a few steps yesterday. No nausea or vomiting. OBJECTIVE: Vital Signs: Blood pressure 134/65, heart rate 69, respirations 16, afebrile. Generally: No acute distress. Skin: Warm and dry. Neck: Veins are not distended. Heart: Regular. Lungs: Equal. Abdomen: Soft, nontender. Bowel sounds present. Extremities: No edema, clubbing or cyanosis. IMPRESSION: 1. Chronic kidney disease 5D. Today is his routine dialysis day. Two K bath. We will use his outpatient dry weight. 2. Anemia. Below target, but stable. Will dose with erythropoietin x1. 3. Deep venous thrombosis. Will discuss with Dr. Waldrop. cc: Paul Kurtz MD
[2019-04-15] MEDS: NEURONTIN PO SCH ×2 (13:34→21:01)
[2019-04-15] MEDS: HEMOCYTE PLUS CAPSULE PO SCH (13:34)
[2019-04-15] MEDS: ASPIRIN PO SCH ×2 (13:35→17:55)
[2019-04-15] MEDS: COREG PO SCH ×2 (14:12→21:02)
[2019-04-15] MEDS: COZAAR PO SCH (14:12)
[2019-04-15] MEDS: NORVASC PO SCH (14:13)
[2019-04-15] MEDS: LEVEMIR SUBQ SCH ×2 (14:17→21:04)
--- NOTE | 2019-04-15 14:52 | PROGRESS NOTE ---
DATE: 04/15/2019 SUBJECTIVE: The patient is resting comfortably in bed. He states that he is still having paresthesia in his hands, mainly the fingers and his feet. OBJECTIVE: Vital Signs: Temperature 97.9 degrees, blood pressure 134/65, heart rate 69, respirations 16, O2 saturation 98% on room air. General: This is a morbidly obese male lying in bed in no acute distress. Heart: S1, S2 normal. Regular rate and rhythm. Lungs: Clear to auscultation bilaterally. Abdomen: Positive bowel sounds. Soft, nontender, nondistended. Extremities: No edema no cyanosis. Neurologic: The patient is alert and oriented x4. LABS: Hemoglobin 8.5, hematocrit 25, platelets 215,000. INR 1.0. Sodium 140, potassium 3.7, chloride 98, CO2 21, BUN 76, creatinine 10.5, glucose 100, calcium 7.7, phosphorus 9.2. ASSESSMENT AND PLAN: 1. Lower extremity weakness with paresthesias. Continue with physical therapy and occupational therapy. The patient will be going to inpatient rehab once a facility has been found. 2. Diabetic ketoacidosis. Resolved. 3. Uncontrolled insulin dependent diabetes mellitus. Continue on Levemir twice a day and NovoLog 20 units before each meal. 4. Hyperlipidemia. Continue on Lipitor. 5. End stage renal disease on hemodialysis. Management as per the infantry officer. 6. Right internal jugular thrombosis. The patient has been transitioned to Eliquis. 7. Anemia. Stable. 8. Hypertension. Continue on the current antihypertensive regimen. 9. Disposition. Licensed [employer] Appraiser is working on inpatient rehab placement for the patient. cc: Malka Vargas MD [facility]
[2019-04-15] MEDS: HEPARIN 25,000 UNIT in NS 250 ML IV SCH (14:54)
[2019-04-15] MEDS ORDERED: HEPARIN 25,000 UNIT in NS 250 ML IV SCH (14:58)
--- NOTE | 2019-04-15 15:34 | HEMO/ONC PROGRESS NOTE ---
DATE: 04/15/2019 We have been notified that Dr. Kurtz has come by has agreed that the patient can be placed on Eliquis for his right IJ thrombus. We agree with this plan. Okay to go ahead and discontinue Coumadin and heparin. Start the patient on Eliquis per appropriate protocol for acute clot. The patient should only require 3 months of anticoagulation and then can stop his Eliquis. We recommend he follow up with the primary care physician for close monitoring while he is on Eliquis. Dictated by JESE Arnold for Renate Waldrop MD cc: Renate Waldrop MD
[2019-04-15] MEDS: ELIQUIS PO SCH (21:01)
[2019-04-15] MEDS: LIPITOR PO SCH (21:01)
[2019-04-16] MEDS: PRILOSEC PO SCH (06:28)
[2019-04-16] MEDS: HUMALOG SUBQ SCH ×3 (06:28→21:14)
[2019-04-16] MEDS: HUMULIN R SUBQ SCH ×5 (06:28→21:10)
[2019-04-16] MEDS ORDERED: HUMALOG SUBQ SCH (07:00)
[2019-04-16 07:59] LABS: HEMOGLOBIN 8.4 g/dL (14.0-18.0); MCH 30.9 PG (27-31); MCHC 32.3 g/dL (33-37); MCV 95.6 FL (81-99); MPV 11.6 FL (7.4-10.4); RBC 2.72 XMIL (4.7-6.1); WBC 10.32 X1000 (4.8-10.8)
[2019-04-16 08:44] LABS: ALBUMIN 3.4 g/dL (3.5-5.0); CALCIUM 7.8 mg/dL (8.8-10.2); CREATININE 9.8 mg/dL (0.7-1.2); PHOSPHORUS 6.4 mg/dL (2.7-4.5); POTASSIUM 3.8 mmol/L (3.5-5.1)
[2019-04-16] MEDS: HEMOCYTE PLUS CAPSULE PO SCH (09:02)
[2019-04-16] MEDS: ELIQUIS PO SCH ×2 (09:02→21:14)
[2019-04-16] MEDS: NORVASC PO SCH (09:02)
[2019-04-16] MEDS: ASPIRIN PO SCH (09:02)
[2019-04-16] MEDS: NEURONTIN PO SCH ×2 (09:02→21:14)
[2019-04-16] MEDS: COZAAR PO SCH (09:02)
[2019-04-16] MEDS: LEVEMIR SUBQ SCH ×2 (09:03→21:14)
[2019-04-16] MEDS: COREG PO SCH ×2 (09:04→21:14)
--- NOTE | 2019-04-16 11:31 | PROGRESS NOTE ---
DATE: 04/16/2019 SUBJECTIVE: The patient is resting comfortably in bed. He states the feeling in his right hand is starting to come back. However, he still has pain and numbness and tingling in the left hand as well as his feet. OBJECTIVE: Vital Signs: Temperature 98.6 degrees, blood pressure 143/64, heart rate 68, respirations 19, O2 saturation 95% on room air. General: This is a chronically ill-appearing, elderly male, lying in bed in no acute distress. Heart: S1, S2 normal. Regular rate and rhythm. Lungs: Clear to auscultation bilaterally. Abdomen: Positive bowel sounds. Soft, nontender, nondistended. Extremities: No edema, no cyanosis. Neurologic: The patient is alert and oriented x4. LABORATORY DATA: White blood cell count 10, hemoglobin 8.4, hematocrit 26, platelets 218,000. Sodium 138, potassium 3.8, chloride 97, CO2 25, BUN 61, creatinine 9.8, glucose 213, calcium 7.8, phosphorus 6.4. ASSESSMENT AND PLAN: 1. Lower extremity weakness with paresthesias. Continue with physical therapy and occupational therapy. 2. Diabetic ketoacidosis. Resolved. 3. Uncontrolled insulin-dependent diabetes mellitus. Continue on Levemir and NovoLog. 4. Hyperlipidemia. Continue on Lipitor. 5. End stage renal disease on hemodialysis. 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 6. Right internal jugular thrombosis. Continue on Eliquis. 7. Anemia. Stable. 8. Hypertension. Controlled. 9. Disposition. The patient will be discharged to inpatient rehab once a bed has been found. cc: Malka Vargas MD [facility]
[2019-04-16] MEDS ORDERED: VENOFER 200 MG in NS 150 ML IV SCH (13:45)
--- NOTE | 2019-04-16 14:18 | NEPHROLOGY PROGRESS NOTE ---
DATE: 04/16/2019 SUBJECTIVE: No significant changes. He has still done very little with physical therapy. No shortness of breath, nausea, vomiting. OBJECTIVE: Vital Signs: Blood pressure 174/81, heart rate 77, respiration 18, afebrile. General: No acute distress. Skin: Warm and dry. Neck: Neck veins are not distended. Heart: Regular. Lungs: Equal. Abdomen: Soft, nontender. Bowel sounds present. Extremities: No edema. IMPRESSION: 1. Chronic kidney disease 5D. His next dialysis treatment will be Thursday. 2. Hypertension in target. 3. Acid-base/electrolytes in target. 4. Anemia. Below target. He has received erythropoietin. B12, folate were normal. Iron was low. Will treat with Venofer. cc: Paul Kurtz MD [facility]
[2019-04-16] MEDS: LIPITOR PO SCH (21:14)
[2019-04-16] MEDS ORDERED: BENADRYL IV ONE (22:20)
[2019-04-16] MEDS ORDERED: PEPCID IV ONE (22:27)
[2019-04-16] MEDS ORDERED: SODIUM CHLORIDE 0.9% INJ ONE (22:27)
[2019-04-17] MEDS: PRILOSEC PO SCH (06:36)
[2019-04-17] MEDS: HUMULIN R SUBQ SCH ×4 (06:36→20:17)
[2019-04-17] MEDS ORDERED: HUMALOG SUBQ SCH (07:00)
[2019-04-17] MEDS: HUMALOG SUBQ SCH ×4 (07:37→20:17)
[2019-04-17 07:59] LABS: HEMATOCRIT 26.3 % (42.0-52.0); HEMOGLOBIN 8.4 g/dL (14.0-18.0); MCH 30.4 PG (27-31); MCHC 31.9 g/dL (33-37); MCV 95.3 FL (81-99); MPV 11.8 FL (7.4-10.4); RBC 2.76 XMIL (4.7-6.1); RDW 15.2 % (11.5-14.5); WBC 14.02 X1000 (4.8-10.8)
[2019-04-17 08:26] LABS: POTASSIUM 4.8 mmol/L (3.5-5.1)
[2019-04-17 08:38] LABS: CREATININE 9.9 mg/dL (0.7-1.2)
[2019-04-17] MEDS: COREG PO SCH ×2 (09:08→20:16)
[2019-04-17] MEDS: HEMOCYTE PLUS CAPSULE PO SCH (09:08)
[2019-04-17] MEDS: ASPIRIN PO SCH (09:08)
[2019-04-17] MEDS: COZAAR PO SCH (09:08)
[2019-04-17] MEDS: ELIQUIS PO SCH ×2 (09:08→20:15)
[2019-04-17] MEDS: NORVASC PO SCH (09:08)
[2019-04-17] MEDS: NEURONTIN PO SCH ×2 (09:08→20:16)
[2019-04-17] MEDS: LEVEMIR SUBQ SCH ×2 (09:09→20:17)
--- NOTE | 2019-04-17 15:00 | Diag Imaging Result Doc PS360 ---
EXAM: CHEST-PORTABLE 04/17/2019 HISTORY: dyspnea TECHNIQUE: AP portable upright at 1444 COMMENT: There is a right pleural effusion. There is opacification of the right lower lobe with obscuration of the hemidiaphragm. There are some fibrotic opacities in the left base which were present on 04/11/2019. The right-sided opacities were not present previously. IMPRESSION: Right lower lobe pneumonia and pleural effusion. Electronically signed by Bo Moody 04/17/2019 2:57 PM
[2019-04-17] MEDS ORDERED: MAXIPIME 1 GM in NS 50 ML IV ONE (15:04)
[2019-04-17] MEDS ORDERED: NS NEB INH SCH (15:15)
--- NOTE | 2019-04-17 15:21 | PROGRESS NOTE ---
DATE: 04/17/2019 SUBJECTIVE: The patient reports that he had an allergic reaction to the iron infusion. He states that he became short of breath. OBJECTIVE: Vital Signs: Temperature 98.6 degrees, blood pressure 144/74, heart rate 74, respirations 20, O2 saturation 98% on room air. General: This is a elderly male lying in bed in no acute distress. Heart: S1, S2. Normal. Regular rate and rhythm. Lungs: Clear to auscultation bilaterally. No wheezing, no rales, no rhonchi. Abdomen: Positive bowel sounds. Soft, nontender, nondistended. Extremities: No edema, no cyanosis, no calf tenderness. Neuro: The patient is alert and oriented x4. LABS: White blood cell count 14, hemoglobin 8.4, hematocrit 26, platelets 231,000, sodium 140, potassium 4.8, chloride 99, CO2 21, BUN 77, creatinine 9.9, glucose 161. Chest x-ray shows possible right lower lobe pneumonia and pleural effusion. ASSESSMENT AND PLAN: 1. Pneumonia. The x-ray done today is showing a right lower lobe pneumonia. Also the patient's white blood cell count is elevated at 14,000. Will start the patient on antibiotics, bronchodilator therapy and supplemental oxygen. Will also obtain blood cultures and a sputum Gram stain and culture. 2. Lower extremity weakness with paresthesias. Continue with physical therapy and occupational therapy. 3. End stage renal disease. Management as per the heart doctor. 4. Hypertension. Continue on the current antihypertensive regimen. 5. Uncontrolled Insulin dependent diabetes mellitus. The patient has been eating junk food that his family has been bringing. He was advised not to eat things that are unhealthy. Continue with Levemir plus premeal insulin and sliding scale insulin coverage. 6. Morbid obesity. Aware. 7. Right internal jugular thrombosis. Continue on Eliquis. 8. Hyperlipidemia. Continue on Lipitor. 9. DKA. Resolved. 10. Gastrointestinal prophylaxis. Continue on Prilosec. 11. Disposition. The patient will be discharged to inpatient rehab once a bed is available. cc: MD FELIX Hamilton
[2019-04-17] MEDS: ZYVOX 600 MG/D5W 600 MG/300 ML IVPB IV SCH (17:30)
--- NOTE | 2019-04-17 17:37 | EKG Report ---
Test Performed on : 04/17/2019 3:43:11 PM Test Reason : dyspnea Blood Pressure : / mmHG Vent. Rate : 071 BPM Atrial Rate : 071 BPM P-R Int : 196 ms QRS Dur : 094 ms QT Int : 434 ms P-R-T Axes : 047 -18 090 degrees QTc Int : 471 ms Normal sinus rhythm. Nonspecific T wave abnormality Prolonged QT Abnormal ECG When compared with ECG of 16-SEP-2018 20:06, No significant change was found Confirmed by Ancelmo Duong MD ([id number]) on 04/20/2019 8:51:25 PM
[2019-04-17] MEDS: XOPENEX NEB INH SCH ×2 (18:15→22:14)
[2019-04-17] MEDS ORDERED: TESSALON PO ONE (18:20)
[2019-04-17] MEDS: LIPITOR PO SCH (20:16)
[2019-04-17] MEDS: ROBITUSSIN PO PRN (20:16)
--- NOTE | 2019-04-17 21:02 | Diag Imaging Result Doc PS360 ---
EXAM: CT THORAX W/O CONTRAST 04/17/2019 HISTORY: pneumonia TECHNIQUE: This exam was performed using automated exposure control, adjustment of mA or kV according to patient size, and/or use of iterative reconstruction technique. COMMENT: There are no previous thoracic studies available for comparison. Where possible comparison is made with the abdominal study of 02/14/2019. There are bilateral pleural fluid collections. This was not the case previously. There is stranding in the fat around the duodenal bulb and gallbladder fossa. This was not the case previously. There is mediastinal adenopathy with right paratracheal and precarinal nodes. Some of these nodes contain calcification. There is a node anterior to the caty which measures in excess of 2 cm. There is a calcified granuloma in the right upper lobe. There is a nodule adjacent to the upper portion of the major fissure in the left upper lobe measuring less than 6 mm in diameter. There are platelike opacities present in the right middle lobe and lower upper lobe. There are nodular and linear opacities in the right lower lobe with consolidation of the posterior costophrenic sulcus region. There is also perihilar opacity in the left lower lobe inferiorly and bullous emphysema in the lingula. The atelectasis and/or pneumonia present in the right middle lobe and lower lobe were not present at the time the previous abdominal study. The regional skeleton appears to be intact. IMPRESSION: Bilateral pleural effusions and atelectasis versus pneumonia worse in the right lower lobe. Nonspecific mediastinal adenopathy. Apparent edema or inflammatory changes around the gallbladder fossa and duodenum of uncertain etiology. Electronically signed by Bo Moody 04/17/2019 8:59 PM
[2019-04-18] MEDS: ZYVOX 600 MG/D5W 600 MG/300 ML IVPB IV SCH ×2 (02:46→16:38)
[2019-04-18] MEDS: XOPENEX NEB INH SCH ×4 (03:48→23:22)
[2019-04-18] MEDS: PRILOSEC PO SCH (06:10)
[2019-04-18] MEDS: ROBITUSSIN PO PRN (06:10)
[2019-04-18] MEDS: HUMULIN R SUBQ SCH ×4 (06:11→21:14)
[2019-04-18] MEDS: HUMALOG SUBQ SCH ×4 (06:11→21:14)
[2019-04-18] MEDS ORDERED: HEPARIN IV PRN (06:40)
[2019-04-18] MEDS ORDERED: NS 2,000 ML MISC PRN (06:40)
[2019-04-18] MEDS ORDERED: TIGHT: 0.2 ML/HR FOR DIALYSIS MISC PRN (06:40)
[2019-04-18 08:23] LABS: HEMATOCRIT 27.9 % (42.0-52.0); MCH 30.5 PG (27-31); MCHC 32.3 g/dL (33-37); MCV 94.6 FL (81-99); MPV 11.8 FL (7.4-10.4); RBC 2.95 XMIL (4.7-6.1); RDW 15.5 % (11.5-14.5); WBC 14.11 X1000 (4.8-10.8)
[2019-04-18 08:57] LABS: POTASSIUM 4.2 mmol/L (3.5-5.1)
[2019-04-18 09:04] LABS: CREATININE 12.6 mg/dL (0.7-1.2)
[2019-04-18] MEDS: TESSALON PO SCH ×3 (13:43→16:38)
[2019-04-18] MEDS: COZAAR PO SCH (13:44)
[2019-04-18] MEDS: NORVASC PO SCH (13:45)
[2019-04-18] MEDS: ASPIRIN PO SCH (13:45)
[2019-04-18] MEDS: NEURONTIN PO SCH ×2 (13:46→21:13)
[2019-04-18] MEDS: ELIQUIS PO SCH ×2 (13:47→21:13)
[2019-04-18] MEDS: LEVEMIR SUBQ SCH ×2 (14:01→21:15)
[2019-04-18] MEDS: HEMOCYTE PLUS CAPSULE PO SCH (15:36)
[2019-04-18] MEDS: COREG PO SCH ×2 (15:37→21:35)
[2019-04-18] MEDS: TUSSIONEX LIQUID PO SCH ×2 (16:38→21:15)
[2019-04-18] MEDS ORDERED: MAXIPIME 1 GM in NS 50 ML IV ONE (17:00)
--- NOTE | 2019-04-18 17:07 | PROGRESS NOTE ---
DATE: 04/18/2019 SUBJECTIVE: The patient is resting comfortably. He states that he is coughing a lot. He reports that he was able to ambulate with a walker yesterday. OBJECTIVE: Vital Signs: Temperature 97.5 degrees, blood pressure 155/86, heart rate 71, respirations 18, O2 saturation 98% on room air. General: This is a chronically ill-appearing elderly male lying in bed in no acute distress. Heart: S1, S2 normal. Regular rate and rhythm. Lungs: Equal air entry bilaterally. No wheezing. No rales. No rhonchi. Abdomen: Positive bowel sounds. Soft, nontender, nondistended. Extremities: No edema. No cyanosis. Neurologic: The patient is alert and oriented x4. LABORATORY DATA: White blood cell count 14, hemoglobin 9, hematocrit 27, platelets 245,000. Sodium 142, potassium 4.2, chloride 99, CO2 21, BUN 88, creatinine 12, glucose 70. ASSESSMENT AND PLAN: 1. Pneumonia. Continue with cefepime after each dialysis session and Zyvox every 12 hours. Continue with bronchodilator therapy and supplemental oxygen. We will follow up on the blood culture results. 2. Lower extremity weakness with paresthesias. Continue with physical therapy. 3. End stage renal disease. Management as per the human resources services specialist. 4. Hypertension. Controlled. 5. Insulin dependent diabetes mellitus. Continue on the current insulin regimen. 6. Morbid obesity. Aware. 7. Right internal jugular thrombosis. Continue on Eliquis. 8. Hyperlipidemia. Continue on Lipitor. 9. Diabetic ketoacidosis. Resolved. 10. Disposition. Element Burner is working on inpatient rehab placement for the patient. cc: Malka Vargas MD [facility]
--- NOTE | 2019-04-18 18:40 | NEPHROLOGY PROGRESS NOTE ---
DATE: 04/18/2019 SUBJECTIVE: Patient is sitting up in bed. He states that he may go to [facility] for rehab. OBJECTIVE: Vital Signs: Temperature 97.4 degrees, pulse 68, respiratory rate 18, blood pressure 149/80, intake 200 mL. Output not measured. General: This is a middle-aged gentleman sitting up in bed. Awake and alert. He does not appear in acute distress. HEENT: Normocephalic, atraumatic. CLAUDINE. Neck: Supple without JVD. Cardiovascular: Regular rate and rhythm. No murmur. Pulmonary: He has decreased breath sounds but no crackles or rales. Abdomen: Soft, positive bowel sounds. : Not inspected. Extremities: He has 1 to 2+ edema. Integumentary: Skin is warm and dry. DIAGNOSTIC DATA: CT scan shows bilateral pleural effusions versus an atelectasis versus pneumonia. ASSESSMENT AND PLAN: 1. Chronic kidney disease 5D. Today is his routine dialysis day. We will try to go ahead and dialyze him early this morning in anticipation that he may be discharged to rehab later today. 2. Electrolytes, acid-base balance, anemia. These are stable. No changes Dictated by JEFFERSON Freeman for Paul Kurtz MD Face to face encounter, data reviewed, discussed with Joanna Aldridge on 04/18/19. I agree with the above assessment and plan of care. cc: Paul Kurtz MD [facility]
[2019-04-18] MEDS: MAXIPIME 1 GM in NS 50 ML IV SCH ×2 (18:47→18:48)
[2019-04-18] MEDS: LIPITOR PO SCH (21:13)
[2019-04-19] MEDS: XOPENEX NEB INH SCH ×4 (03:30→19:17)
[2019-04-19] MEDS: ZYVOX 600 MG/D5W 600 MG/300 ML IVPB IV SCH ×2 (03:48→15:52)
[2019-04-19] MEDS: HUMULIN R SUBQ SCH ×4 (06:03→22:18)
[2019-04-19] MEDS: HUMALOG SUBQ SCH ×4 (06:03→22:20)
[2019-04-19] MEDS: PRILOSEC PO SCH (06:04)
--- NOTE | 2019-04-19 07:40 | Diag Imaging Result Doc PS360 ---
EXAM: CHEST-2 VIEWS INDICATION: pneumonia TECHNIQUE: 2 views COMPARISON: 04/17/2019 FINDINGS: The right basilar pleural effusion and adjacent atelectasis and infiltrate appear to have improved slightly. No new consolidation is identified. Cardiac silhouette is stable. IMPRESSION: Interval improvement on the right. Electronically signed by Sam Post 04/19/2019 7:38 AM
[2019-04-19 08:22] LABS: HEMATOCRIT 27.7 % (42.0-52.0); HEMOGLOBIN 8.7 g/dL (14.0-18.0); MCHC 31.4 g/dL (33-37); MCV 95.5 FL (81-99); MPV 11.7 FL (7.4-10.4); RBC 2.9 XMIL (4.7-6.1); RDW 15.7 % (11.5-14.5); WBC 12.07 X1000 (4.8-10.8)
[2019-04-19 08:26] LABS: CALCIUM 8.1 mg/dL (8.8-10.2); CREATININE 9.4 mg/dL (0.7-1.2); POTASSIUM 4.2 mmol/L (3.5-5.1)
[2019-04-19] MEDS: HEMOCYTE PLUS CAPSULE PO SCH (08:43)
[2019-04-19] MEDS: NORVASC PO SCH (08:43)
[2019-04-19] MEDS: COZAAR PO SCH (08:43)
[2019-04-19] MEDS: COREG PO SCH ×2 (08:43→22:16)
[2019-04-19] MEDS: ROBITUSSIN PO PRN (08:43)
[2019-04-19] MEDS: ASPIRIN PO SCH (08:43)
[2019-04-19] MEDS: NEURONTIN PO SCH ×2 (08:43→22:16)
[2019-04-19] MEDS: TESSALON PO SCH ×3 (08:43→22:17)
[2019-04-19] MEDS: ELIQUIS PO SCH ×2 (08:43→22:16)
[2019-04-19] MEDS: LEVEMIR SUBQ SCH ×2 (08:44→22:21)
[2019-04-19] MEDS ORDERED: TUSSIONEX LIQUID ONE (09:13)
[2019-04-19] MEDS: TUSSIONEX LIQUID PO SCH ×2 (09:14→22:15)
--- NOTE | 2019-04-19 15:15 | NEPHROLOGY PROGRESS NOTE ---
DATE: 04/19/2019 SUBJECTIVE: The patient sitting resting in bed. He is still working on a rehab placement plan. OBJECTIVE: Vital Signs: Temperature 98.3 degrees, pulse 84, respiratory rate 19, blood pressure 140/71. Intake 720 mL. Output not measured. General: This is a middle-age gentleman resting in bed in no acute distress. HEENT: Normocephalic atraumatic. CLAUDINE. Oral mucosa moist. Neck: Supple. No JVD. Cardiovascular: Regular rate and rhythm. Pulmonary: Clear bilaterally. Equal excursion. Abdomen: Soft. Positive bowel sounds. GENITOURINARY: Not inspected. Extremities: One plus edema. integumentary: Skin is warm and dry. LABORATORY DATA: WBC of 12, hemoglobin 8.7. Sodium 142, potassium 4.2, CO2 of 25, creatinine 9.4, calcium 8.1. ASSESSMENT AND PLAN: 1. Chronic kidney disease 5D. He dialyzes on a Thursday, Thursday, Thursday. We will continue. 2. Electrolytes, acid-base balance, anemia. Make sure uses he receives EPO tomorrow during dialysis. Dictated by JEFFERSON Freeman for Paul Kurtz MD Face to face encounter, data reviewed, discussed with Joanna Aldridge on 04/19/19. I agree with the above assessment and plan of care. cc: Paul Kurtz MD [facility]
--- NOTE | 2019-04-19 17:22 | PROGRESS NOTE ---
DATE: 04/19/2019 HISTORY: He was admitted on 04/11/2019. He woke up after dialysis. He could not move his arms or legs or feel anything. He is a 49-year-old with history of end-stage renal disease, hemodialysis, hypertension, obesity, and diabetes mellitus brought by EMS to the ER with sudden onset of paralysis before he had finished outpatient dialysis when he noticed he could not feel any sensation in his arms and legs or move at all. The patient reports this never has happened before. He was able to ambulate before dialysis. The patient denies any headache, dizziness, dysphagia, blurred vision, or recent syncopal episodes. Denies any recent bacterial or viral infection. He also denied bowel or urinary incontinence. Reports he had dialysis catheter removed recently and had right upper extremity fistula. Emergency room CT of the head and cervical spine were done and were unremarkable. PAST MEDICAL HISTORY: 1. Poorly-controlled diabetes mellitus type 2. 2. Hypertension. 3. End-stage renal disease on dialysis Mondays, Wednesdays, and Fridays. 4. History of diverticulitis. PAST SURGICAL HISTORY: 1. Right upper extremity fistula. 2. Appendectomy. 3. Hernia repair. 4. Right shoulder arthroscopy. The patient was admitted with questionable weakness/paralysis and he reports he is feeling a little better now. Dr. Piedra had evaluated him on 04/12. He had a sense of weakness and numbness in his limbs. Report spontaneous recovery. Lack of bowel incontinence. Lack of significant motor finding. Exam overall reassuring. Negative imaging. Reassuring. Ultrasound evidence of right jugular thrombosis. He had a brain MRI done on 04/11. No evidence of any acute disease. CLINICAL EXAMINATION TODAY: vital signs: Temp 98.3 degrees, pulse 68 respirations 19, blood pressure 131/59. heent: Pupils are equal and round. Lungs: Clear in all lung bradford. Cardiovascular: Regular rhythm and rate without murmur or S3. Abdomen: Soft. Skin: Warm and dry. ASSESSMENT AND PLAN: 1. Lower extremity weakness and paresthesias. Continue physical therapy. Continuing to try and help with ambulation. I think he was trying to set him up for rehab. I think he has a bed at [facility]. tradeshow worker helping. 2. Diabetes with diabetic ketoacidosis, resolved. 3. Uncontrolled insulin-dependent diabetes mellitus. He is on Levemir. I think we need to switch him, but if Levemir works we will continue present regimen. He gets 20 units before each meal. 4. Hyperlipidemia. He is on Lipitor. 5. End-stage renal disease on hemodialysis. His volume status electrolytes look good. 6. Right internal jugular thrombosis and he is transitioned to Eliquis. 7. Anemia. 8. Hypertension. DISPOSITION: Hoping to get him to rehab soon. cc: Micah Elizabeth MD
[2019-04-19] MEDS: LIPITOR PO SCH (22:16)
[2019-04-20] MEDS: XOPENEX NEB INH SCH ×3 (02:59→09:13)
[2019-04-20] MEDS: ZYVOX 600 MG/D5W 600 MG/300 ML IVPB IV SCH (03:40)
[2019-04-20 05:09] LABS: HEMATOCRIT 23.5 % (42.0-52.0); HEMOGLOBIN 7.6 g/dL (14.0-18.0); MCH 30.6 PG (27-31); MCHC 32.3 g/dL (33-37); MCV 94.8 FL (81-99); MPV 11.7 FL (7.4-10.4); RBC 2.48 XMIL (4.7-6.1); RDW 15.6 % (11.5-14.5); WBC 11.81 X1000 (4.8-10.8)
[2019-04-20] MEDS: HUMULIN R SUBQ SCH (06:32)
[2019-04-20] MEDS: PRILOSEC PO SCH (06:32)
[2019-04-20] MEDS: HUMALOG SUBQ SCH ×2 (06:32→13:24)
[2019-04-20] MEDS ORDERED: TIGHT: 0.2 ML/HR FOR DIALYSIS MISC PRN (07:04)
[2019-04-20] MEDS ORDERED: HEPARIN IV PRN (07:04)
[2019-04-20] MEDS ORDERED: NS 2,000 ML MISC PRN (07:04)
[2019-04-20] MEDS ORDERED: EPOGEN SUBQ SCH (09:00)
--- NOTE | 2019-04-20 11:10 | NEPHROLOGY PROGRESS NOTE ---
DATE: 04/20/2019 SUBJECTIVE: Patient is resting in bed. He states that "this pneumonia is kicking my butt". OBJECTIVE: Vital Signs: Temperature 98.2 degrees, pulse 64, respiratory rate 18, blood pressure 124/67. Intake 420 mL. Output not measured. General: This is a middle-aged gentleman, resting in bed. He does not appear in acute distress. HEENT: Normocephalic, atraumatic. CLAUDINE. Neck: Supple, without JVD. Cardiovascular: Regular rate and rhythm. Pulmonary: He does have some rhonchi bilaterally, particularly to the posterior bases but no rales or wheezes. Abdomen: Soft, obese. Positive bowel sounds. : Not inspected. Extremities: Trace to 1+ edema. Integumentary: Skin is warm and dry, pale. Lab Data: WBC of 11.8, hemoglobin 7.6. Sodium pending, last potassium was 4.2 yesterday. ASSESSMENT AND PLAN: 1. Chronic kidney disease 5D. Today is his routine dialysis day. We will plan to dialyze him on a 2 K bath, ultrafiltration, and challenge his dry weight 1 to 2 L as tolerated. 2. Pneumonia. He currently is on cefepime and Zyvox. Dictated by JEFFERSON Freeman for Paul Kurtz MD Face to face encounter, data reviewed, discussed with Joanna Aldridge on 04/20/19. I agree with the above assessment and plan of care. cc: Paul Kurtz MD [facility]
[2019-04-20 12:32] VITALS: BP 183/79
[2019-04-20] MEDS: COREG PO SCH (13:21)
[2019-04-20] MEDS: ELIQUIS PO SCH (13:21)
[2019-04-20] MEDS: ASPIRIN PO SCH (13:21)
[2019-04-20] MEDS: COZAAR PO SCH (13:22)
[2019-04-20] MEDS: HEMOCYTE PLUS CAPSULE PO SCH (13:22)
[2019-04-20] MEDS: NEURONTIN PO SCH (13:23)
[2019-04-20] MEDS: NORVASC PO SCH (13:23)
[2019-04-20] MEDS: TESSALON PO SCH (13:24)
--- NOTE | 2019-04-20 14:23 | DISCHARGE SUMMARY ---
ADMISSION DATE: 04/11/2019 DISCHARGE DATE: 04/20/2019 HOSPITAL COURSE: He is a patient of Dr. Paul Kurtz. He presented on 04/11/2019. Said he woke up after his dialysis and could not move his arms or legs or feel anything. He is a 49-year- old with history of end-stage renal disease, hemodialysis, hypertension, obesity, diabetes mellitus, brought in by EMS to the emergency room with complaints of sudden paralysis. The patient reports that he had just finished his dialysis session at the outpatient dialysis. Clinically, he knows he could not feel any sensation in his arms and legs, could not move at all. The patient reports this never happened before. He was able to ambulate prior to beginning of his dialysis session. Denies any headache, dizziness, dysphagia, blurred vision, recent syncopal episodes. Also, denies having any recent bacterial or viral infections. Denies having bowel or urinary incontinence. He had dialysis catheter removed recently. He has a right upper extremity fistula at the present time. In the ER, CT of the head and cervical spine were done, noted to be unremarkable. He had an MRI of the cervical spine that revealed mild right neural foraminal narrowing. PAST MEDICAL HISTORY: 1. Poorly controlled diabetes mellitus type 2. 2. Hypertension. 3. End-stage renal disease on hemodialysis Mondays, Wednesdays, and Fridays. 4. History of diverticulitis. PAST SURGICAL HISTORY: 1. Right upper extremity fistula. 2. Appendectomy. 3. Hernia repair. 4. Right shoulder arthroscopy. ADMISSION DIAGNOSIS: Paralysis. MRI of the brain, thoracic lumbar spine all unremarkable and Neurology did evaluate Dr. Andre Piedra's impression. He had a subjective sense of weakness and numbness in his limbs, reported spontaneous recovery, lack of bowel incontinence, lack of significant motor findings on exam. Negative imaging was reassuring and could consider an EMG and nerve conduction as an outpatient if further trouble. He was dialyzed by Dr. Kurtz following chronic kidney disease stage 5 D. His electrolytes and acid base balance look good. Anemia was stable, and he did have some hyperglycemia when he came in. Sugars under better control. We will discharge him to [facility]. Still complains of weakness and trouble ambulating, so he will go to [facility]. DISCHARGE MEDICATIONS: As follows amlodipine 10 mg a day, Eliquis 5 mg b.i.d., aspirin 81 mg a day, Lipitor 40 mg a day, Tessalon Perles 100 mg tablet 3 times a day as needed, Coreg 12.5 mg q. 12 hours. He will continue his dialysis. He gets Epogen with dialysis 10,000 units subcutaneous, Neurontin 300 mg b.i.d., Levemir 60 mg subcutaneously b.i.d. He had no growth from any blood cultures and no evidence of any infection. cc: Micah Elizabeth MD
[2019-04-20] MEDS: TUSSIONEX LIQUID PO SCH (16:05)
[2019-04-20] MEDS: LEVEMIR SUBQ SCH (16:05)
[2019-04-20] MEDS ORDERED: MAXIPIME 1 GM in NS 50 ML IV ONE (17:00)
== END 2019-04-20 15:42 | DRG 91 ==
LOC: SUPCPDRO → ED 11:52 → SUATTDRO 19:40 → 3S 19:40 → 1N 04-14 12:53
PROVIDERS: ATTEND Emergency Medicine
CPT/HCPCS: 70450; 70551; 71010; 71020; 71045; 71046; 71250; 72125; 72141; 72146; 72148; 80048; 80053; 80061; 80069; 82009; 82550; 82607; 82728; 82746; 82948; 83036; 83540; 83550; 83735; 84100; 84443; 84484; 85025; 85027; 85610; 85651; 85730; 86038; 86039; 86140; 87040; 93005; 93010; 93306; 93880; 94640; 94760; 94761; 94799; 96374; 97110; 97116; 97162; 97165; 97530; 99284; A9270; J0692; J0885; J1644; J1756; J1815; J2020; J2930; J7030; J7040; J7050; XXXXX

== ENCOUNTER 2019-06-16 09:22 | Inpatient (IN) ==
[2019-06-16] MEDS ORDERED: TYLENOL PO ONE (10:07)
--- NOTE | 2019-06-16 10:40 | Diag Imaging Result Doc PS360 ---
CHEST-2 VIEWS - 06/16/2019 INDICATION: fever COMPARISON: 04/19/2019 FINDINGS: There is dense infiltrate mainly in the left upper lobe, but also affecting the left lower lobe. Stable emphysematous bullae at the lateral left lung base. Heart size and pulmonary vascularity is top normal. There is a trace left pleural effusion. IMPRESSION: Dense multilobar infiltrates in the left lung most consistent with pneumonia. Electronically signed by Omero Fermin 06/16/2019 10:37 AM
[2019-06-16 12:26] LABS: BASO# 0.03 X1000 (0.0-0.2); BASO% 0.2 % (0.0-0.8); EOS# 0.07 X1000 (0.0-0.7); EOS% 0.5 % (0.0-10.0); HEMATOCRIT 31.7 % (42.0-52.0); HEMOGLOBIN 11.1 g/dL (14.0-18.0); IMM GRAN# 0.02 X1000 (0.0-0.04); IMM GRAN% 0.2 % (0.0-0.5); LYMPH# 0.65 X1000 (1.2-3.4); LYMPH% 4.9 % (20.5-51.1); MCV 85.7 FL (81-99); MONO# 0.72 X1000 (0.11-0.59); MONO% 5.4 % (1.7-9.3); MPV 11.2 FL (7.4-10.4); NEUT# 11.82 X1000 (1.4-6.5); NEUT% 88.8 % (42.2-75.2); PLT 174 X1000 (130-400); RDW 16.1 % (11.5-14.5); WBC 13.31 X1000 (4.8-10.8)
[2019-06-16 12:37] LABS: LYMPHS 9 % (21-51); MONO 1 % (1-9); NRBC 1 % (0-0); SEGS 90 % (42-75)
[2019-06-16 12:55] LABS: ALB/GLOB RATIO 0.9; ALBUMIN 3.9 g/dL (3.5-5.0); CALCIUM 8.9 mg/dL (8.8-10.2); POTASSIUM 4.9 mmol/L (3.5-5.1); TOTAL BILIRUBIN 0.95 mg/dL (0.20-1.00); TOTAL PROTEIN 8.1 g/dL (6.3-8.3)
[2019-06-16 13:10] LABS: CREATININE 13.4 mg/dL (0.7-1.2)
--- NOTE | 2019-06-16 15:03 | PROVIDER DOCUMENTATION ---
This chart was entered by Denisse Blum Scribe, acting as scribe for Nathaniel Juares MD. HPI-General Adult - General Chief Complaint: Sore Throat Stated Complaint: SORE THROAT Time Seen by Provider: 06/16/19 10:02 Source: patient Allergies/Adverse Reactions: Patient Allergies Allergy/AdvReac Type Severity Reaction Status Date / Time No Known Allergies Allergy Verified 04/11/19 13:16 Home Medications: Home Medication List Medication Instructions Recorded Confirmed Last Taken Type Losartan [Cozaar] 100 mg PO QHS 05/30/18 06/16/19 04/10/19 21:00 History Amlodipine [Norvasc] 10 mg PO DAILY #30 tab 09/18/18 06/16/19 04/10/19 09:00 Rx ATORVAstatin [Lipitor] 40 mg PO QHS tab 04/17/19 Unknown Rx Apixaban [Eliquis] 5 mg PO BID tab 04/17/19 Unknown Rx Aspirin 81 mg PO DAILY chewtab 04/17/19 Unknown Rx Carvedilol [Coreg] 12.5 mg PO Q12HR tab 04/17/19 06/16/19 Unknown Rx Gabapentin [Neurontin] 300 mg PO BID #30 cap 04/17/19 06/16/19 Unknown Rx Insulin Detemir [Levemir] 60 unit SUBQ BID insuln.pen 04/17/19 Unknown Rx Insulin Lispro [Humalog Kwikpen 25 unit SQ AC #1 insuln.pen 04/17/19 Unknown Rx U-100] Multivitamins/Iron [Hemocyte Plus 1 ea PO DAILY cap 04/17/19 Unknown Rx Capsule] Tramadol HCl 50 mg PO Q6H PRN #15 tab 04/17/19 Unknown Rx Amlodipine [Norvasc] 10 mg PO DAILY tab 04/20/19 Unknown Rx - History of Present Illness -Gen Adult Nature of Presenting Problems: 49 yowm presents to the ed with c/o sore throat, cough, fever, chills, fatigue for 5 days and worsened yesterday. pt is a dialysis pt on // and sts was unable to go yesterday due to feeling so bad. pt on exam looks to not feel well Location of Pain/Injury: reports: other (sore throat) Quality of Pain: reports: aching Severity: reports: severe Onset/Duration: reports: 5 days ago Timing: reports: still present, constant, getting worse Context/Activities at Onset: reports: light activity Modifying Factors: worse with: coughing Associated Symptoms: reports: cough, EENT symptoms, fatigue, fever/chills. denies: back/neck pain, chest pain, diarrhea, nausea, shortness of breath, vomiting, trouble walking Similar Symptoms Previously?: Yes Recently seen or treated by another doctor?: No Review of Systems - Adult - REVIEW OF SYSTEMS - ADULT Constitutional: reports: see HPI, chills, fever, fatique Eyes: reports: no symptoms reported Ears, Nose, Mouth & Throat: reports: hoarseness, throat pain. denies: throat swelling Cardiovascular: denies: chest pain, palpitations, syncope Respiratory: reports: see HPI, cough. denies: shortness of breath, wheezing Gastrointestinal: denies: abdominal pain, diarrhea, nausea, vomiting Genitourinary: reports: no symptoms reported Musculoskeletal: denies: back pain, neck pain Integumentary: reports: no symptoms reported Neurological: reports: no symptoms reported Psychiatric: reports: no symptoms reported Endocrine: reports: no symptoms reported Hematologic/Lymphatic: reports: no symptoms reported Allergic/Immunologic: reports: no symptoms reported All Other Systems: Reviewed and Negative Past History - Adult - PAST MEDICAL HISTORY-ADULT Review of Records: reports: Old Records Reviewed, Nursing Assessment Review, Medications Reviewed, Social history reviewed & non-contributory. Major Childhood Illnesses: reports: denies history Cardiovascular: reports: HTN, hyperlipidemia Respiratory: reports: denies history Gastrointestinal: reports: pancreatitis Genitourinary: reports: dialysis, ESRD, kidney disease Musculoskeletal: reports: denies history Hand Dominance: Right Handed Neurological: reports: denies history Psychiatric: reports: denies history Endocrine/Immune: reports: Diabetes Diabetes Type: Type 2 Other Conditions: reports: denies history - PRIOR SURGERIES/PROCEDURES Surgical/Procedure History: reports: reviewed, not pertinent, appendectomy, hernia repair - IMMUNIZATION STATUS Childhood Immunizations: See Nurse Assessment Flu Vaccine: See Nurse Assessment - FAMILY HISTORY Family History: reviewed, not pertinent - SOCIAL HISTORY Smoking: non-smoker Substance Use: denies Living Situation: family Physical Exam-General - PHYSICAL EXAM-ADULT Initial Vital Signs Reviewed: Yes (BP 233/61 temp 100.4 HR 103 O2 RA 86%) - CONSTITUTIONAL General Appearance: alert, mild distress, obese - EYES Eyes: PERRL/EOMI, pink conjunctivae - HEAD, EARS, NOSE, MOUTH & THROAT HENMT: moist mucous membranes, pharyngeal erythema, other (voice change with burning sore throat) - NECK Neck: full range of motion, normal inspection - RESPIRATORY Respiratory: chest non-tender, normal breath sounds - CARDIOVASCULAR Cardiovascular: normal peripheral pulses, tachycardia (102) - GASTROINTESTINAL (ABDOMEN) Abdominal Exam: soft - GENITOURINARY Male Genitalia: deferred Rectal Exam: deferred Hemoccult Exam: deferred - MUSCULOSKELETAL Back Exam: normal inspection Extremity: normal range of motion, normal inspection, normal capillary refill, pelvis stable - SKIN Integumentary: warm/dry, pallor - NEUROLOGIC Neurologic: grossly normal - PSYCHIATRIC Psych/Mental Status: normal mood/affect, normal thought content, normal thought process, oriented x 3 Progress - PLAN OF CARE/RESULTS Progress/Plan/Lab Results: Vital Signs - 8 hr 06/16/19 09:33 Temperature 100.4 F H Pulse Rate 99 H Respiratory Rate 19 Blood Pressure 233/61 O2 Sat by Pulse Oximetry 90 L 06/16/19 09:38 Group A Strep Rapid Antigen - Final Throat Orders Category Date Time Status CHEST-2 VIEWS [RAD] Stat Exams 06/16/19 10:06 Completed BLOOD CULTURE [BLDCUL] Stat Lab 06/16/19 10:06 Uncollected CBC WITH DIFF [HEME] Stat Lab 06/16/19 10:06 Uncollected COMPREHENSIVE METABOLIC PANEL [CHEM] Stat Lab 06/16/19 10:06 Uncollected INFLUENZA SCREEN A/B Stat Lab 06/16/19 10:06 Uncollected LACTATE, PLASMA [CHEM] Stat Lab 06/16/19 10:06 Uncollected Strep [DIRECT STREP] Stat Lab 06/16/19 09:38 Completed TROPONIN T Stat Lab 06/16/19 11:44 Uncollected Acetaminophen [Tylenol] Med 06/16/19 10:07 Discontinued 1,000 mg PO NOW ONE Throat Pain with Fever Stat Oth 06/16/19 09:39 Ordered Result Diagrams: 06/16/19 11:58 06/16/19 11:58 - REASSESSMENT Reassessment #1 Time Reassessed: 13:48 (O2 is in normal range with o2@ @ 2LPM) Status: improving - XRAY 1 XRAY: Bilateral XRAY Study: Chest Impression: See EMR Report (CHEST-2 VIEWS - 06/16/2019 INDICATION: fever COMPARISON: 04/19/2019 FINDINGS: There is dense infiltrate mainly in the left upper lobe, but also affecting the left lower lobe. Stable emphysematous bullae at the lateral left lung base. Heart size and pulmonary vascularity is top normal. There is a trace left pleural effusion. IMPRESSION: Dense multilobar infiltrates in the left lung most consistent with pneumonia. Electronically signed by Omero Fermin 06/16/2019 10:37 AM 06/16/19 1037 Interpreting Physician: Omero Fermin MD Dictated Date/Time: 06/16/19 1033 cc: Anamika Thomas; None,PCP) - CONSULTS/PCP/HOSPITALIST Notification #1 *Consult/PCP/Hospitalist*: hospitalist dr argueta Time Discussed: 13:55 (spoke with Sharda) Consult Disposition: Admit Departure - Departure Date of Disposition Decision: 06/16/19 Time of Disposition Decision: 13:56 DIAGNOSIS: Pneumonia Qualifiers: Pneumonia type: due to unspecified organism Laterality: left Lung location: unspecified part of lung Qualified Code(s): J18.9 - Pneumonia, unspecified organism Disposition: ADMITTED INPATIENT 09 Certified Medical Emergency: Emergent Condition: Good Referrals and Follow-Ups: None,PCP [Primary Care Provider] - - Critical Care Note This patient required my direct & personal management of CC.: No Attestation - Physician/ EMILY Attestation Patient care was provided by Advanced Practice Provider:: No The physician spent face to face time with patient:: Yes Advanced Practice Provider documentation review:: Supervising physician onsite and consulted in the evaluation and care of this patient. The physician did have a face to face encounter with the patient. This chart was documented by the indicated scribe, (Denisse Blum Scribe) and accurately reflects the services I performed and decisions made by me, Nathaniel Juares MD, as attested by the provider's signature.
[2019-06-16 15:54] LABS: INR 1.37; PROTIME 17.1 Seconds (11.0-16.0)
[2019-06-16] MEDS ORDERED: APRESOLINE IV PRN (16:52)
[2019-06-16] MEDS ORDERED: TYLENOL PO PRN (16:52)
[2019-06-16] MEDS: HUMALOG SUBQ SCH ×4 (16:52→22:55)
[2019-06-16] MEDS ORDERED: ZITHROMAX 500 MG/NS 500 MG/250 ML IVPB IV SCH (16:52)
[2019-06-16] MEDS ORDERED: ROCEPHIN 1 GM in NS 50 ML IV SCH (16:52)
[2019-06-16] MEDS ORDERED: DUONEB (A & A) INH PRN (17:04)
[2019-06-16] MEDS ORDERED: NS 500 ML IV SCH (17:15)
[2019-06-16] MEDS ORDERED: VANCOMYCIN IV PER PHARMACY MISC SCH (17:15)
[2019-06-16] MEDS ORDERED: ZOSYN 2.25 GM in NS 50 ML IV SCH (17:15)
[2019-06-16] MEDS ORDERED: NS 1,000 ML IV SCH (17:24)
[2019-06-16] MEDS: COZAAR PO SCH ×2 (17:31→21:02)
[2019-06-16] MEDS: LEVEMIR SUBQ SCH ×2 (17:47→21:03)
[2019-06-16] MEDS ORDERED: VANCOMYCIN 1 GM/NS 1 GM/250 ML IVPB IV ONE (18:00)
[2019-06-16 18:11] LABS: BASO# 0.04 X1000 (0.0-0.2); BASO% 0.3 % (0.0-0.8); EOS# 0.17 X1000 (0.0-0.7); EOS% 1.5 % (0.0-10.0); HEMATOCRIT 28.8 % (42.0-52.0); IMM GRAN# 0.03 X1000 (0.0-0.04); IMM GRAN% 0.3 % (0.0-0.5); LYMPH# 1.01 X1000 (1.2-3.4); LYMPH% 8.8 % (20.5-51.1); MCHC 34.7 g/dL (33-37); MCV 86.5 FL (81-99); MONO# 0.71 X1000 (0.11-0.59); MONO% 6.2 % (1.7-9.3); MPV 11.6 FL (7.4-10.4); NEUT# 9.48 X1000 (1.4-6.5); NEUT% 82.9 % (42.2-75.2); PLT 156 X1000 (130-400); RBC 3.33 XMIL (4.7-6.1); WBC 11.44 X1000 (4.8-10.8)
[2019-06-16 19:07] LABS: CALCIUM 8.3 mg/dL (8.8-10.2); MAGNESIUM 2.2 mg/dL (1.5-2.7); PHOSPHORUS 6.5 mg/dL (2.7-4.5); POTASSIUM 4.8 mmol/L (3.5-5.1)
[2019-06-16 19:08] LABS: CREATININE 15.2 mg/dL (0.7-1.2)
--- NOTE | 2019-06-16 19:42 | HISTORY AND PHYSICAL ---
PRIMARY CARE PHYSICIAN: None. CHIEF COMPLAINT: Cough for the past 3 days that progressively worsened. HISTORY OF PRESENTING ILLNESS: This is a 49-year-old male who presents to [facility] with complaints of a cough for the past 3 days. He states he felt so weak that he missed his dialysis treatment yesterday. He has endstage renal disease and goes Thursday, Thursday and Thursday. His workup showed a white blood cell count of 13.31. His sodium was 126. His BUN was 75 with a creatinine of 13.4. His glucose was 666. His first troponin was 0.205, second was 0.183. Acetone level was negative. Chest x-ray showed dense multilobar infiltrates in the left lung, most consistent with pneumonia. His influenza was negative. Group A streptococcus was negative. Throat culture is pending. He will be admitted for further evaluation and treatment. PAST MEDICAL HISTORY: 1. Diabetes type 2, uncontrolled, with hyperglycemia. 2. Hypertension. 3. Endstage renal disease, with hemodialysis on Thursday, Thursday, Thursday. 4. Diverticulitis. PAST SURGICAL HISTORY: Right extremity fistula, appendectomy, right shoulder arthroscopy and hernia repair. FAMILY HISTORY: Reviewed and noncontributory. SOCIAL HISTORY: Currently lives with his mother. Denies any tobacco, alcohol or illicit drug use. ALLERGIES: He has no known drug allergies. HOME MEDICATIONS: He takes Norvasc 10 mg p.o. daily; carvedilol 12.5 mg p.o. q.12 hours; gabapentin 300 mg p.o. b.i.d.; Levemir 50 units subcutaneous at bedtime; Humalog KwikPen 25 units subcutaneously AC; losartan 100 mg p.o. at bedtime. LABORATORY DATA: White blood cell count of 13.31, hemoglobin 11.1, hematocrit 31.7, platelets 174,000. PT and INR of 17.1 and 1.37. Sodium of 126, potassium 4.9, chloride 89, CO2 is 18, BUN of 75 with a creatinine of 13.4, glucose of 666. Troponin was 0.205 on arrival. Recheck 3 hours later was 0.183. Plasma lactate of 2.1. Acetone was negative. DIAGNOSTIC DATA: Chest x-ray showed dense multilobar infiltrates in the left lung, most consistent with pneumonia. REVIEW OF SYSTEMS: He was positive for a subjective fever, chills. Denied blurred vision, dizziness or chest pain. He had a nonproductive cough, shortness of breath. Denied any abdominal pain, constipation, diarrhea, burning or hurting with urination. PHYSICAL EXAMINATION: VITAL SIGNS: On arrival he had a temperature of 100.4 degrees, pulse 99, respirations 19, blood pressure was 233/61. He was saturating 90% on room air, and 2 hours later dropped to 86%. He was placed on O2 via nasal cannula, saturating 92% to 93%. GENERAL: This is a 49-year-old male who is lying in the bed and answers questions appropriately. HEENT: Normocephalic, atraumatic. Normal ENT inspection. Oropharynx and nares are clear. Eyes: Pupils are equal, round and reactive to light and accommodation. Extraocular movements are intact. NECK: Normal inspection. Normal range of motion. LUNGS: Clear breath sounds bilaterally. Equal lung expansion and chest wall movement noted, and O2 via nasal cannula currently in use. HEART: He did have some tachycardia but no murmurs, rubs or gallops. ABDOMEN: Soft, nontender, nondistended. Bowel sounds are present x4 quadrants. MUSCULOSKELETAL: He has 5/5 strength x4 extremities. NEUROLOGICAL: The cranial nerves 2-12 appear grossly intact. ASSESSMENT: 1. Left multilobar pneumonia. 2. Leukocytosis. 3. Acute hypoxic respiratory failure. 4. Diabetes type 2, uncontrolled with hyperglycemia. 5. Endstage renal disease with dialysis. 6. Malignant hypertension. PLAN: He will be admitted to PVC unit, placed on telemetry. O2 per protocol, incentive spirometry. Full liquid diet. We will consult Nephrology. We will place on pattern blood sugars with sliding scale insulin. Place on normal saline at 75 mL an hour x1 bag. Place on vancomycin per pharmacy protocol, Zosyn 2.25 g IV q.6. Continue home medicines as previously identified. Place on hydralazine 10 mg IV q.4 hours p.r.n. for systolic blood pressure greater than 190, diastolic greater than 100. Recheck CBC, BMP, magnesium and phosphorus in the a.m. Further orders after seen by attending and by jewelry consultant. Dictated by JEFFERSON Osuna for Reza Dumont MD cc: ShardaJEFFERSON Lopez MD
[2019-06-16 20:03] LABS: ALLEN TEST YES; BE -3.7 mmoll (-3.0-3.0); BLOOD TYPE ARTERIAL; O2(CT) 12.7 mL/dL (15.0-23.0); O2HB 94.6 % (95.0-99.0); PCO2(98.6) 32 mmHg (35-45); PO2(98.6) 81 mmHg (60-100); SAMPLE BLOOD; THB 9.5 g/dL (11.5-17.4); pH(98.6) 7.41 (7.35-7.45)
[2019-06-16 20:04] LABS: MODALITY CANNULA
--- NOTE | 2019-06-16 20:26 | HISTORY AND PHYSICAL ---
CHIEF COMPLAINT: Generalized weakness, dry cough, throat pain. HISTORY OF PRESENT ILLNESS: A 49-year-old male with a past medical history of poorly controlled type 2 diabetes, end-stage renal disease on hemodialysis Thursday, Thursday, and Thursday, hypertension, and history of diverticulitis. He presented to emergency department in the morning, with a chief complaint of dry cough, generalized weakness, sore throat, chills and subjective fever since last Thursday, 4 to 5 days 4 to 5 days ago. As per the patient, he was able to go to his dialysis on Thursday, but he missed his dialysis yesterday. Actually, as per the patient, he has been taking some sips of water and nothing more for the past 3 days. He states that his mouth is dry and his throat is painful. He has not been able to use his treatment for diabetes or blood pressure medication since last Thursday, also. He tried to go to dialysis yesterday, but he was feeling extremely bad to go. At the emergency department, he was found to have a blood pressure in the 120s to 140s, low oxygen saturation, mild degree of fever of 100.4, tachypneic. X-ray at the emergency department showed a dense multilobular infiltrate in the left lung, more consistent with pneumonia, stable emphysematous bullae at the lateral left lung base, heart size and pulmonary vascular vascularity is top-normal and there is a trace left pleural effusion. LABORATORY DATA: Showed a WBC of 13.3, hemoglobin 11.1, hematocrit 31.7, platelet count 174,000. His sodium level was 126, but his glucose level was 666, creatinine 13.4, BUN 75, and elevated troponin at 0.2 and 0.1, lactate level 2.1 and 1.3. Acetone level negative. No ABGs but has been order stat. In the emergency department, this patient received acetaminophen and he was placed on oxygen. ASSESSMENT/PLAN: When I evaluated this patient, he was still complaining of shortness of breath; he was feeling really sick. I ordered hydralazine stat, we put him back on his home medications. I will give him Levemir 50 units, which is his home dose and also I will give him sliding scale insulin. I will start treatment with Zosyn renally dosed and vancomycin renally dosed per pharmacy protocol, right now. Even though he is in end-stage renal disease his mouth is really dry and he looks a little bit dehydrated so I will give him a L of fluid slowly. We have placed a consult also for Nephrology Department, probably this patient needs to be dialyzed either today or tomorrow. I will change his diet from a diabetic diet to full liquid diet since this patient has problems swallowing, due to his sore throat. I will transfer this patient to the [facility] unit. VITAL SIGNS: Last vital signs at 4:40 p.m. , temperature 98.5 degrees, pulse 83, respiratory rate 23, blood pressure 191/100. Oxygen saturation 91% on nasal cannula.HEENT: Normocephalic. No trauma. PERRLA. Neck: Supple no JVD. No masses. Central trachea. Painful to palpation. I do not feel any adenopathy at the level of the submandibular area, but he has some retroauricularly, throat looks erythematous. Chest: Decreased breath sounds globally, with bilateral rhonchi and crepitus mostly on the left side, but basically is throughout. Abdomen: Soft, obese, nontender, nondistended. No hepatosplenomegaly. Extremities: No clubbing, no cyanosis. Neurological examination: Patient is alert. He is oriented x3. He does have generalized weakness. He moves all 4 extremities LABORATORY: WBC 13.3, hemoglobin 11.1, hematocrit 31.7, platelet 174,000. Sodium 126, potassium 4.9, chloride 81, bicarbonate 18, BUN 75, creatinine 13.4, glucose 666, calcium 8.9, troponin 0.1. Plasma lactate 1.3. Acetone level negative. ASSESSMENT AND PLAN: 1. Sepsis. This patient meets criteria for sepsis with leukocytosis, tachypnea, and source of infection. I will start this patient with Zosyn and vancomycin, renally dosed. I will give him some fluids because he looks also dehydrated. He has not been eating or drinking for 3 or 4 days, I will transfer this patient to the PVC unit. I already talked to the housekeeping coordinator about it. 2. Uncontrolled type 2 diabetes with hyperglycemia. As per the patient, he has not been using his insulin or any kind of treatment since last Thursday because he was feeling extremely weak and bad. I have placed this patient back on his insulin and sliding scale that he will receive right now. Also, he will receive some fluids. I will start this patient on a diet. I will monitor this closely. He is receiving at this moment long-acting and short-acting insulin. I have requested a new set of CBC and BMP right now. 3. Accelerated hypertension, hypertensive urgency. We gave him hydralazine IV x1 and also I gave him some of his medications. I will try to decrease the blood pressure by 25% and then slowly. We will monitor this patient in the PVC unit. 4. End-stage renal disease. I have requested an evaluation by Nephrology Department. 5. Dense multilobular pneumonia on the left side. I have placed this patient on vancomycin and Zosyn, breathing treatment and oxygen. 6. Hypoxemic respiratory failure, continue with oxygen supplementation. I have requested ABGs. 7. Gastrointestinal prophylaxis. I will put this patient on omeprazole p.o. 8. Deep venous thrombosis prophylaxis with heparin twice a day subcu due to his kidney dysfunction. Patient seen and examined by me [id number], nurse practitioner also evaluated this patient. She will do also a detailed history and physical. I agree with the nurse practitioner's assessment and plan. cc: Reza Dumont MD
[2019-06-16] MEDS: INSULIN PEN NEEDLES ONE (20:59)
[2019-06-16] MEDS: ZOSYN 2.25 GM in NS 50 ML IV SCH ×2 (20:59→23:57)
[2019-06-16] MEDS: HEPARIN SUBQ SCH (21:02)
[2019-06-16] MEDS: COREG PO SCH (21:02)
[2019-06-16] MEDS: NEURONTIN PO SCH (21:02)
[2019-06-16] MEDS: DUONEB (A & A) INH SCH ×2 (22:53)
[2019-06-17] MEDS: DUONEB (A & A) INH SCH ×6 (03:30→23:01)
[2019-06-17] MEDS: ZOSYN 2.25 GM in NS 50 ML IV SCH ×3 (05:56→19:20)
[2019-06-17 06:02] LABS: BASO# 0.03 X1000 (0.0-0.2); BASO% 0.3 % (0.0-0.8); EOS# 0.86 X1000 (0.0-0.7); EOS% 7.8 % (0.0-10.0); HEMATOCRIT 26.4 % (42.0-52.0); IMM GRAN# 0.03 X1000 (0.0-0.04); IMM GRAN% 0.3 % (0.0-0.5); LYMPH# 0.75 X1000 (1.2-3.4); LYMPH% 6.8 % (20.5-51.1); MCH 29.3 PG (27-31); MCHC 34.1 g/dL (33-37); MONO# 0.67 X1000 (0.11-0.59); MPV 11.2 FL (7.4-10.4); NEUT# 8.74 X1000 (1.4-6.5); NEUT% 78.8 % (42.2-75.2); PLT 164 X1000 (130-400); RBC 3.07 XMIL (4.7-6.1); RDW 15.9 % (11.5-14.5); WBC 11.08 X1000 (4.8-10.8)
[2019-06-17 06:35] LABS: MAGNESIUM 2.5 mg/dL (1.5-2.7); PHOSPHORUS 7.5 mg/dL (2.7-4.5)
[2019-06-17] MEDS: PRILOSEC PO SCH (06:35)
[2019-06-17] MEDS: HUMALOG SUBQ SCH ×7 (06:35→20:47)
[2019-06-17 06:51] LABS: CALCIUM 8.3 mg/dL (8.8-10.2); CREATININE 15.6 mg/dL (0.7-1.2); POTASSIUM 3.7 mmol/L (3.5-5.1)
[2019-06-17 06:54] LABS: HEMOGLOBIN A1C 10.6 % (4.8-6.0)
[2019-06-17] MEDS ORDERED: HEPARIN IV PRN (07:33)
[2019-06-17] MEDS ORDERED: TIGHT: 0.2 ML/HR FOR DIALYSIS MISC PRN (07:33)
[2019-06-17] MEDS ORDERED: NS 2,000 ML MISC PRN (07:33)
--- NOTE | 2019-06-17 08:16 | Diag Imaging Result Doc PS360 ---
EXAM: CHEST-2 VIEWS HISTORY: hypoxia TECHNIQUE: Chest two views COMPARISON: 06/16/2019 FINDINGS: There are dense infiltrates/pneumonia in the left lung. The heart is mildly enlarged. Small left pleural effusion. IMPRESSION: No interval improvement. Electronically signed by Celestine Bueno 06/17/2019 8:15 AM
[2019-06-17] MEDS: NEURONTIN PO SCH ×2 (13:29→20:47)
[2019-06-17] MEDS: HEPARIN SUBQ SCH ×2 (13:29→20:46)
[2019-06-17] MEDS: NORVASC PO SCH (13:29)
[2019-06-17] MEDS: COREG PO SCH ×2 (13:29→20:47)
--- NOTE | 2019-06-17 13:33 | NEPHROLOGY CONSULTATION ---
DATE: 06/17/2019 REASON FOR ADMISSION: Pneumonia. REASON FOR CONSULTATION: Assist with management, ESRD. CONSULTING PHYSICIAN: Dr. Marrufo. HISTORY OF PRESENT ILLNESS: This is a 49-year-old gentleman known to our service for end-stage renal disease on hemodialysis Thursday, Thursday and Thursday. He stated that he went to his dialysis treatment on Thursday but felt so poorly afterward when he went home, he laid down and did not awake until 9 o'clock the next day. He stated that he began having cough and just feeling of lethargy. He did not go to his treatment on Thursday. Presented to the emergency room on . He was found to have dense multilobar infiltrates at the left lung. He was admitted for further workup and treatment. The patient denies any nausea or vomiting. States that he has a productive cough with a clear to creamy colored sputum. He states that he did have some fevers but no night sweats. I see him this morning. He states that he is very hungry and would like to eat some breakfast before going to dialysis. PAST MEDICAL HISTORY: End-stage renal disease, hemodialysis Thursday, Thursday, Thursday. Type 2 diabetes, hypertension, diverticulitis. PAST SURGICAL HISTORY: Fistula right upper extremity, appendectomy, right shoulder arthroscopy, and a hernia repair. ALLERGIES: None. HOME MEDICATIONS: Listed as Norvasc, carvedilol, gabapentin, Levemir, Humalog, losartan. FAMILY HISTORY: Noncontributory. SOCIAL HISTORY: He lives at home with his mother. No ETOH, tobacco, or illicit drug use. PHYSICAL EXAMINATION: Vital Signs: Temperature 97.4 degrees, pulse 62, respiratory rate 20, blood pressure 138/73. Intake 1.3 L, output none. General: This is a middle-aged gentleman resting in bed. He is in no acute distress. He does look like he feels just poorly. HEENT: Normocephalic, atraumatic. Conjunctivae are pink. His oral mucosa moist. Neck: Supple. His trachea midline. There is no JVD. Cardiovascular: Regular rate and rhythm without murmur or gallop. Pulmonary: He has equal excursion. There is no rales noted. Abdomen: Obese, soft, with positive bowel sounds. Genitourinary: Not inspected. Minimal void with hemodialysis assist. Extremities: No clubbing, cyanosis, or edema. Is moving all extremities without difficulty. Integumentary: Skin is warm and dry. Neurologic: Appears grossly nonfocal. LABORATORY DATA: WBC of 11.0, hemoglobin 9. Sodium 134, potassium 3.7, CO2 20, creatinine 15.6. ASSESSMENT AND PLAN: 1. Chronic kidney disease 5D. We will dialyze him today on a 2 K bath/UF to his dry weight, 4 hour treatment. 2. Multilobar pneumonia. We will check a chest x-ray tomorrow. If he appears to have increased fluid volumes from a pulmonary standpoint, we will be glad to go ahead and dialyze him again for fluid removal. 3. Antibiotic regimen appropriate. No changes are needed from a renal perspective. Dictated by JEFFERSON Freeman for Paul Kurtz MD cc: Paul Kurtz MD
--- NOTE | 2019-06-17 17:04 | PROGRESS NOTE ---
DATE: 06/17/2019 INTERVAL HISTORY: The patient's dyspnea improving. Still some largely nonproductive cough. Getting dialysis this morning. No new complaints. No acute events overnight. REVIEW OF SYSTEMS: Twelve point review of systems negative except as per interval history. LABORATORY DATA: WBC 11.0, hemoglobin 9, hematocrit 26.4, platelets 164,000. Sodium 134, potassium 3.7, bicarbonate 20, BUN 81, creatinine 15.6, glucose 102 to 160, lactate 1.5. VITAL SIGNS: T-max 100.4 degrees yesterday morning. T-max 98.6 degrees today, pulse 70, respirations 16, blood pressure 138/73, O2 saturation is 95% on 3 L by nasal cannula. IMAGING: Chest x-ray with continued dense infiltrates in the left lung. PHYSICAL EXAMINATION: General: No acute distress. Vital Signs: As above. HEENT: Normocephalic, atraumatic. Moist mucous membranes. No cervical adenopathy. Some posterior cervical adenopathy, which is mild. Cardiovascular: Regular rate and rhythm. No murmurs noted. Pulmonary: Decreased breath sounds throughout. Some scattered rhonchi, left greater than right. Abdomen: Soft, nontender, nondistended. Bowel sounds positive. Extremities: Peripheral pulses intact. No clubbing or cyanosis. Trace to 1+ bilateral edema. Neurologic: Cranial nerves grossly intact. No focal deficits. Psychiatric: Normal mood and affect. Asleep but easily arousable. Oriented x3. Skin: No new rashes or lesions identified. ASSESSMENT AND PLAN: 1. Sepsis, pneumonia. Patient with mild leukocytosis, which is improving somewhat. One low- grade fever yesterday, but none so far today. Blood cultures remain no growth to date. The patient's respiratory symptoms improving on antibiotics with Zosyn. Continue antibiotics for now and monitor. If he continues to improve then hopeful for discharge in the next 24 to 48 hours. 2. Poor p.o. intake. The patient reported a little p.o. intake for 3 or 4 days prior to admission. Doing okay with liquids here. On full liquid diet currently. If he continues to do well, will advance that in the morning. 3. Diabetes mellitus, uncontrolled on admission but doing quite well now. Continue monitoring glucoses. 4. Hypertension. Improved control from admission on his home Norvasc, Coreg and losartan. Monitor. 5. End-stage renal disease, getting dialyzed again today. Monitor. 6. Elevated troponin. Likely demand ischemia/type 2 myocardial infarction related to underlying infection. Patient without chest pain, diaphoresis. Trending down. We will continue to monitor. If it goes back up, we will consider further evaluation by Cardiology. 7. Hyponatremia, improving with dialysis. Monitor.
[2019-06-17] MEDS: LEVEMIR SUBQ SCH (20:46)
[2019-06-17] MEDS: COZAAR PO SCH (20:47)
[2019-06-17] MEDS ORDERED: INSULIN PEN NEEDLES ONE (20:52)
[2019-06-18] MEDS: ZOSYN 2.25 GM in NS 50 ML IV SCH ×3 (01:50→09:20)
[2019-06-18] MEDS: DUONEB (A & A) INH SCH ×2 (03:40→07:49)
[2019-06-18] MEDS: PRILOSEC PO SCH (06:12)
[2019-06-18] MEDS: HUMALOG SUBQ SCH ×2 (06:12→09:09)
[2019-06-18 07:19] VITALS: BP 147/79
--- NOTE | 2019-06-18 07:20 | Diag Imaging Result Doc PS360 ---
EXAM: CHEST-PORTABLE 06/18/2019 HISTORY: dyspnea TECHNIQUE: AP portable at 0536 COMMENT: There is alveolar opacity in the left upper lobe parahilar region. The inspiration is less optimal than on the previous study of 06/17/2019. Otherwise are has been no significant change. IMPRESSION: Left upper lobe pneumonia. Electronically signed by Bo Moody 06/18/2019 7:18 AM
[2019-06-18 07:50] LABS: BASO# 0.04 X1000 (0.0-0.2); BASO% 0.5 % (0.0-0.8); EOS# 0.72 X1000 (0.0-0.7); EOS% 8.8 % (0.0-10.0); HEMATOCRIT 28.1 % (42.0-52.0); HEMOGLOBIN 9.3 g/dL (14.0-18.0); LYMPH# 1.04 X1000 (1.2-3.4); LYMPH% 12.7 % (20.5-51.1); MCHC 33.1 g/dL (33-37); MCV 87.5 FL (81-99); MONO# 0.72 X1000 (0.11-0.59); MONO% 8.8 % (1.7-9.3); MPV 11.7 FL (7.4-10.4); NEUT% 69.2 % (42.2-75.2); PLT 182 X1000 (130-400); RBC 3.21 XMIL (4.7-6.1); RDW 15.8 % (11.5-14.5); WBC 8.22 X1000 (4.8-10.8)
[2019-06-18 08:28] LABS: CALCIUM 7.8 mg/dL (8.8-10.2); CREATININE 10.3 mg/dL (0.7-1.2); POTASSIUM 3.7 mmol/L (3.5-5.1)
[2019-06-18] MEDS ORDERED: LEVAQUIN PO ONE (09:03)
[2019-06-18] MEDS: NORVASC PO SCH (09:07)
[2019-06-18] MEDS: HEPARIN SUBQ SCH (09:08)
[2019-06-18] MEDS: COREG PO SCH (09:08)
[2019-06-18] MEDS: NEURONTIN PO SCH (09:08)
--- NOTE | 2019-06-18 14:25 | DISCHARGE SUMMARY ---
ADMISSION DATE: 06/16/2019 DISCHARGE DATE: 06/18/2019 PRIMARY CARE PHYSICIAN: Listed as none. ADMISSION DIAGNOSES: 1. A left multilobar pneumonia. 2. Leukocytosis. 3. An acute hypoxic respiratory failure. 4. Diabetes type 2, uncontrolled, with hyperglycemia. 5. End-stage renal disease with dialysis. 6. Malignant hypertension. 7. Sepsis. 8. Hypoxemic respiratory failure. DISCHARGE DIAGNOSES: 1. Sepsis pneumonia with mild leukocytosis, improving. 2. End-stage renal disease with dialysis. 3. Diabetes, uncontrolled, with hyperglycemia on admission, but now within normal limits. 4. Hypertension, improved. 5. Elevated troponin, likely demand ischemia, type 2 myocardial infarction related to underlying infection. SUMMARY OF FINDINGS: This is a 49-year-old male who presented to the emergency room with complaints of a cough for 3 days. States he felt weak and had to miss his dialysis treatment on Thursday. He typically goes on Thursday, Thursday, Thursday. When he arrived, he had a white blood cell count 13.31, sodium 126, BUN 75, with a creatinine of 13.4, glucose was 666, but had a negative acetone. His first troponin was 0.205. Second was 0.183. Acetone was negative. Chest x-ray showed a dense multilobar infiltrate in the left lung consistent with pneumonia. His blood pressure on arrival was elevated at 233/61. He was given hydralazine, and it came down to 194/93. We consulted Nephrology, and he restarted his dialysis and was placed on IV antibiotics, O2 supplementation, DuoNebs, has improved. Chest x-ray today shows his left upper lobe pneumonia. His white count is back to normal at 8.22. He has been afebrile for greater than 24 hours. His blood pressure is down to 147/79, creatinine is down to 10.3. Sodium is back to normal. Blood sugar this morning was 102. He was noted to have a hemoglobin A1c of 10.6, but it is now felt that he can safely be discharged home today. He will have home health care follow-up for his dialysis as already scheduled. HOME MEDICATIONS: 1. Norvasc 10 mg p.o. daily. 2. Coreg 12.5 mg p.o. q.12 hours. 3. Gabapentin 300 mg p.o. b.i.d. 4. Levemir 50 units subcutaneous at bedtime. 5. Humalog KwikPen 25 units subcutaneous before meals. 6. Levaquin 500 mg p.o. every other day. 7. Losartan 100 mg p.o. at bedtime. FOLLOWUP: He will follow up through home health, and he will continue his dialysis. This is a 35 minute discharge. Dictated by JEFFERSON Osuna for Josh Wren MD cc: JEFFERSON Osuna Agree with the above. patient with ESRD who presented with pneumonia and hypoxia. has improved rapidly with antibiotics. transitioned to levaquin which he can take after dialysis. still a few scattered rhonchi on lung exam but markedly improved from previous. MTDD
== END 2019-06-18 10:15 | disposition home health service (06) | DRG 871 ==
LOC: ED 09:22 → SUATTDRO 15:53 → 3N 15:53 → 2N 18:33
PROVIDERS: ATTEND Internal Medicine

== ENCOUNTER 2019-12-14 10:47 | Inpatient (IN) ==
[2019-12-14] MEDS ORDERED: ZOFRAN IV ONE (11:22)
[2019-12-14] MEDS ORDERED: DILAUDID IV ONE (11:22)
--- NOTE | 2019-12-14 11:41 | PROVIDER DOCUMENTATION ---
HPI-Abdominal Pain/GI Problem - General Chief Complaint: Abdominal Pain Stated Complaint: STOMACH PAIN Time Seen by Provider: 12/14/19 11:15 Source: patient Allergies/Adverse Reactions: Patient Allergies Allergy/AdvReac Type Severity Reaction Status Date / Time No Known Allergies Allergy Verified 12/14/19 13:14 Home Medications: Home Medication List Medication Instructions Recorded Confirmed Last Taken Type Losartan [Cozaar] 100 mg PO QHS 05/30/18 12/14/19 1 Day Ago History ~06/27/19 Amlodipine [Norvasc] 10 mg PO DAILY #30 tab 09/18/18 12/14/19 06/28/19 Rx Carvedilol [Coreg] 12.5 mg PO Q12HR tab 04/17/19 12/14/19 06/28/19 Rx Gabapentin [Neurontin] 300 mg PO BID #30 cap 04/17/19 12/14/19 06/28/19 Rx Insulin Detemir [Levemir] 50 unit SUBQ QHS 06/16/19 12/14/19 1 Day Ago History ~06/27/19 Levofloxacin [Levaquin] 500 mg PO EVERY OTHER DAY #3 tab 06/18/19 12/14/19 Unknown Rx Albuterol Sulfate [Proair Hfa] 2 inh PO Q4-6H PRN PRN #1 06/27/19 12/14/19 Unknown Rx hfa.aer.[email or web address] Insulin Lispro [Humalog Kwikpen 30 unit SQ AC 06/28/19 12/14/19 06/28/19 History U-100] Nebulizer [Aeroneb Go Nebulizer] 1 ea [facility] DIRECTED PRN #1 ea 06/28/19 12/14/19 Unknown Rx - History of Present Illness-ABD Nature of Presenting Problems: Patient is a 49 yom who c/o generalized abdominal pain, more in lower abdomen and LLQ x 2 days. Denies n/v, has had some loose stools. Denies fever or any other complaints. Hx of pancreatitis, ESRD on dialysis and diverticulitis. 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 Pt non-toxic in appearance. Review of Systems - Adult - REVIEW OF SYSTEMS - ADULT Constitutional: reports: no symptoms reported. denies: fever Eyes: reports: no symptoms reported Ears, Nose, Mouth & Throat: reports: no symptoms reported Cardiovascular: reports: no symptoms reported Respiratory: reports: no symptoms reported Gastrointestinal: reports: see HPI Genitourinary: reports: no symptoms reported Musculoskeletal: reports: no symptoms reported Integumentary: reports: no symptoms reported Neurological: reports: no symptoms reported Psychiatric: reports: no symptoms reported Endocrine: reports: no symptoms reported Hematologic/Lymphatic: reports: no symptoms reported Allergic/Immunologic: reports: no symptoms reported All Other Systems: Reviewed and Negative Past History - Adult - PAST MEDICAL HISTORY-ADULT Review of Records: reports: Nursing Assessment Review, Medications Reviewed, Social history reviewed & non-contributory. Major Childhood Illnesses: reports: denies history Cardiovascular: reports: HTN, hyperlipidemia Respiratory: reports: denies history Gastrointestinal: reports: pancreatitis Obstetrical/Gynecological: reports: denies history Genitourinary: reports: dialysis, ESRD, kidney disease Musculoskeletal: reports: denies history Neurological: reports: denies history Psychiatric: reports: denies history Endocrine/Immune: reports: Diabetes Diabetes controlled by:: Insulin Dependent Other Conditions: reports: denies history - PRIOR SURGERIES/PROCEDURES Surgical/Procedure History: reports: reviewed, not pertinent, appendectomy, hernia repair - IMMUNIZATION STATUS Childhood Immunizations: See Nurse Assessment Flu Vaccine: See Nurse Assessment - FAMILY HISTORY Family History: reviewed, not pertinent - SOCIAL HISTORY Smoking: non-smoker Physical Exam-General - PHYSICAL EXAM-ADULT Initial Vital Signs Reviewed: Yes - CONSTITUTIONAL General Appearance: alert, no apparent distress. negative: lethargic, slow to respond - EYES Eyes: PERRL/EOMI, pink conjunctivae - HEAD, EARS, NOSE, MOUTH & THROAT HENMT: normocephalic/atraumatic - NECK Neck: full range of motion, supple, normal inspection - RESPIRATORY Respiratory: chest non-tender, lungs clear, normal breath sounds, no pleuratic chest pain, no respiratory distress, no accessory muscle use - CARDIOVASCULAR Cardiovascular: regular rate, rhythm, no gallop, no murmur - GASTROINTESTINAL (ABDOMEN) Abdominal Exam: normal bowel sounds, soft, tenderness (all across lower abdomen, more in LLQ). negative: distended, guarding, rigid, rebound - MUSCULOSKELETAL Back Exam: normal inspection Extremity: normal range of motion, normal gait, normal inspection - SKIN Integumentary: normal color, warm/dry. negative: cyanosis, diaphoresis, jaundice, mottled, pallor - NEUROLOGIC Neurologic: grossly normal, no motor/sensory deficits - PSYCHIATRIC Psych/Mental Status: normal mood/affect, normal thought content, normal thought process, oriented x 3 Progress - PLAN OF CARE/RESULTS Progress/Plan/Lab Results: Vital Signs - 8 hr 12/14/19 11:12 Temperature 98.7 F Pulse Rate 82 Respiratory Rate 16 Blood Pressure 206/92 O2 Sat by Pulse Oximetry 95 Orders Category Date Time Status Blood Glucose Finger Stick [FSBS/Accucheck Result] NOW Care 12/14/19 11:24 Active Nursing- Obtain EKG ONCE Care 12/14/19 11:22 Active Vital Signs Order Q30M Care 12/14/19 11:[address] ABDOMEN/PELVIS W/O CONTRAST [CT] Stat Exams 12/14/19 11:22 Ordered ACETONE SERUM [CHEM] Stat Lab 12/14/19 11:39 Uncollected CBC WITH DIFF [HEME] Stat Lab 12/14/19 11:22 Ordered COMPREHENSIVE METABOLIC PANEL [CHEM] Stat Lab 12/14/19 11:22 Uncollected LIPASE [CHEM] Stat Lab 12/14/19 11:22 Uncollected VBG [VENOUS BLOOD GAS] [RESP] Stat Lab 12/14/19 11:23 Uncollected Hydromorphone [Dilaudid] Med 12/14/19 11:22 Discontinued 0.5 mg IV NOW ONE Ondansetron [Zofran] Med 12/14/19 11:22 Discontinued 4 mg IV NOW ONE EKG [EKG] Stat Ther 12/14/19 11:22 Ordered Result Diagrams: 12/14/19 11:39 12/14/19 11:39 - REASSESSMENT Reassessment #1 Time Reassessed: 13:12 Status: other (Pain controlled. Admitting HPS paged. Pt in agreement with admit decision.) - EKG 1 Time of EKG reading by physician:: 11:50 EKG Read and Signed by:: Dante Melgoza EKG Interpretation (*Must complete 3 of following elements*): Abnormal Rate: 86 Rhythm: SR, nonspec. ST changes, prolonged QT ST Wave: non-specific ST changes - CT/MRI 1 CT Study: Abdomen, Pelvis ([facility] - [address], [address], [place] [address] [facility] - [address] [place] [address] Department of Imaging Patient: ARLETTE HALL Date: 12/14/19#: [id number] : 1970ADM Status: REG [facility]#: [id number] Age/Sex: 49/MRoom/Bed: Loc: ED Ordering Physician: Manuel Severino Family Physician: None,PCP Reason for Procedure: lower abdominal pain/tenderness, hx diverticulitis Signed CT ABDOMEN/PELVIS W/O CONTRAST - 12/14/2019 INDICATION: lower abdominal pain/tenderness, hx diverticulitis COMPARISON: 11/01/2019 FINDINGS: Stable COPD in the lung bases. Stable trace bilateral pleural eff usions and bibasilar atelectasis. The kidneys are severely atrophic. No complication. There is significant focal wall thickening and severe inflammatory stranding around a diverticulum of the sigmoid colon. This is compatible with sigmoid colon diverticulitis. No free air. No drainable fluid collections. Urinary bladder and rectum are normal. Bones are intact and well mineralized. IMPRESSION: Acute diverticulitis of the sigmoid colon. No complication. This exam was performed using automated exposure control, adjustment of mA or kV according to patient size, and/or use of iterative reconstruction technique Electronically signed by Omero Fermin 12/14/2019 12:36 PM 12/14/19 1236 Interpreting Physician: Omero Fermin MD Dictated Date/Time: 12/14/19 1230 cc: Manuel Severino; None,PCP) - CONSULTS/PCP/HOSPITALIST Notification #1 *Consult/PCP/Hospitalist*: NORI Robin CATALOGUE COMPILER Time Discussed: 13:17 Reason/Comments: admission- diverticulitis Consult Disposition: other (States to call back when all labs have resulted. Pending CBC.) #2 Consult: NORI Robin CATALOGUE COMPILER Time Discussed: 13:43 Reason/Comments: admit- diverticulitis Consult Disposition: Admit (CATALOGUE COMPILER accepted admit to Dr. Marrufo) Departure - Departure Date of Disposition Decision: 12/14/19 Time of Disposition Decision: 13:44 DIAGNOSIS: Acute diverticulitis Renal failure Qualifiers: Renal failure chronicity: chronic Chronic kidney disease stage: on chronic dialysis Qualified Code(s): N18.6 - End stage renal disease; Z99.2 - Dependence on renal dialysis DM type 2 (diabetes mellitus, type 2) Qualifiers: Diabetes mellitus terminal superintendent insulin use: with mcc use Diabetes mellitus complication status: with hyperglycemia Qualified Code(s): E11.65 - Type 2 diabetes mellitus with hyperglycemia; Z79.4 - buttermaker continuous churn (current) use of insulin Disposition: ADMITTED INPATIENT 09 Certified Medical Emergency: Emergent Condition: Stable Referrals and Follow-Ups: None,PCP [Primary Care Provider] - - Critical Care Note This patient required my direct & personal management of CC.: No Attestation - Physician/ EMILY Attestation Patient care was provided by Advanced Practice Provider:: Yes Advanced Practice Provider:: Manuel Severino Advanced Practice Provider documentation review:: The Mid-level provider documentation, treatment plan and medical decision making was reviewed by the physician who agrees with all treatment and medical decision making by the MLP. The physician spent face to face time with patient:: No Advanced Practice Provider documentation review:: Supervising physician onsite and consulted in the evaluation and care of this patient. The physician did not have a face to face encounter with the patient.
--- NOTE | 2019-12-14 11:51 | EKG Report ---
Test Performed on : 12/14/2019 11:44:57 AM Test Reason : CP Blood Pressure : / mmHG Vent. Rate : 086 BPM Atrial Rate : 086 BPM P-R Int : 186 ms QRS Dur : 116 ms QT Int : 492 ms P-R-T Axes : 030 -10 102 degrees QTc Int : 588 ms Normal sinus rhythm. Possible Left atrial enlargement Left ventricular hypertrophy with QRS widening Nonspecific ST and T wave abnormality Prolonged QT Abnormal ECG When compared with ECG of 17-APR-2019 15:43, QT has lengthened Unconfirmed Result
[2019-12-14 12:20] LABS: AGAP 15; ALB/GLOB RATIO 1.1; ALBUMIN 4.4 g/dL (3.5-5.0); ALKALINE PHOSPHATASE 88 U/L (32-122); BUN 22 mg/dL (8-22); CALCIUM 9.6 mg/dL (8.8-10.2); CHLORIDE 90 mmol/L (98-107); COSMO 284; CREATININE 4.4 mg/dL (0.7-1.2); ESTIMATED GFR 14; GLUCOSE 359 mg/dL (70-104); GOT 6 U/L (10-34); GPT 9 U/L (10-44); LIPASE 74 U/L (13-60); POTASSIUM 3.4 mmol/L (3.5-5.1); SODIUM 133 mmol/L (136-145); TCO2 28 mmol/L (25-35); TOTAL BILIRUBIN 0.48 mg/dL (0.20-1.00); TOTAL PROTEIN 8.3 g/dL (6.3-8.3)
[2019-12-14 12:35] LABS: ACETONE SERUM NEGATIVE (NEGATIVE)
--- NOTE | 2019-12-14 12:39 | Diag Imaging Result Doc PS360 ---
CT ABDOMEN/PELVIS W/O CONTRAST - 12/14/2019 INDICATION: lower abdominal pain/tenderness, hx diverticulitis COMPARISON: 11/01/2019 FINDINGS: Stable COPD in the lung bases. Stable trace bilateral pleural effusions and bibasilar atelectasis. The kidneys are severely atrophic. No complication. There is significant focal wall thickening and severe inflammatory stranding around a diverticulum of the sigmoid colon. This is compatible with sigmoid colon diverticulitis. No free air. No drainable fluid collections. Urinary bladder and rectum are normal. Bones are intact and well mineralized. IMPRESSION: Acute diverticulitis of the sigmoid colon. No complication. This exam was performed using automated exposure control, adjustment of mA or kV according to patient size, and/or use of iterative reconstruction technique Electronically signed by Omero Fermin 12/14/2019 12:36 PM
[2019-12-14] MEDS ORDERED: ZOSYN 2.25 GM in NS 50 ML IV ONE (12:42)
[2019-12-14 13:26] LABS: BASO# 0.06 X1000 (0.0-0.2); BASO% 0.4 % (0.0-0.8); EOS# 0.38 X1000 (0.0-0.7); EOS% 2.3 % (0.0-10.0); HEMATOCRIT 31.5 % (42.0-52.0); HEMOGLOBIN 10.6 g/dL (14.0-18.0); IMM GRAN# 0.04 X1000 (0.0-0.04); IMM GRAN% 0.2 % (0.0-0.5); LYMPH# 0.79 X1000 (1.2-3.4); LYMPH% 4.8 % (20.5-51.1); MCH 29.9 PG (27-31); MCHC 33.7 g/dL (33-37); MONO# 1.17 X1000 (0.11-0.59); MONO% 7.2 % (1.7-9.3); MPV 11.6 FL (7.4-10.4); NEUT# 13.87 X1000 (1.4-6.5); NEUT% 85.1 % (42.2-75.2); PLT 301 X1000 (130-400); RBC 3.54 XMIL (4.7-6.1); RDW 14.9 % (11.5-14.5); WBC 16.31 X1000 (4.8-10.8)
[2019-12-14 13:48] LABS: EOS 2 % (1-10); LYMPHS 4 % (21-51); SEGS 94 % (42-75)
--- NOTE | 2019-12-14 14:49 | HISTORY AND PHYSICAL ---
PRIMARY CARE PHYSICIAN: Listed as none. CHIEF COMPLAINT: Generalized abdominal pain over the last few days, worse in the left lower quadrant over the past 2 days. HISTORY OF PRESENTING ILLNESS: This is a 49-year-old, male who presented to [facility] with complaints of generalized abdominal pain for the past several days and worse in the left lower quadrant over the past 2 days. Has had some loose diarrhea stools. Noted some blood in those stools a couple of times, but nothing consistent. He is an end-stage renal disease patient on dialysis and did receive his dialysis today. Workup in the emergency room showed a white blood cell count of 16.31. His glucose was 359. CT of the abdomen and pelvis showed acute diverticulitis of the sigmoid colon, so he will be admitted for further evaluation and treatment. PAST MEDICAL HISTORY: Pancreatitis, end-stage renal disease with dialysis on Thursday, Thursday, Thursday, diverticulitis, hypertension, hyperlipidemia, and diabetes type 2. PAST SURGICAL HISTORY: Hernia repair and appendectomy. FAMILY HISTORY: Reviewed and noncontributory. SOCIAL HISTORY: Currently lives with family. Denies any tobacco, alcohol, or illicit drug use. ALLERGIES: He has no known drug allergies. HOME MEDICATIONS: He takes ProAir 2 puff inhalation q.4-6 hours p.r.n., Norvasc 10 mg p.o. daily, Coreg 12.5 mg p.o. q.12, gabapentin 300 mg p.o. b.i.d., Levemir 50 units subcutaneous at bedtime, Humalog 30 units subcutaneous a.c., Levaquin 500 mg p.o. every other day will be held, losartan 100 mg p.o. at bedtime, and an Aeroneb Go nebulizer as directed p.r.n. LABORATORY DATA: Showed a white blood cell count of 16.31, hemoglobin 10.6, hematocrit 31.5, platelets 301,000. Sodium 133, potassium 3.4, chloride 90, CO2 of 28, BUN of 22, creatinine of 4.4, glucose 359. Lipase of 74. Acetone level was negative. CT of the abdomen and pelvis showed an acute diverticulitis of the sigmoid colon with no complication. EKG with normal sinus rhythm, at 86. REVIEW OF SYSTEMS: He denied any fever, chills, blurred vision, dizziness, chest pain, coughing, shortness of breath. He had abdominal pain, worse in the left lower quadrant. Some diarrhea with blood noted on 2 episodes but none further. He denied any burning or hurting with urination. PHYSICAL EXAMINATION: VITAL SIGNS: On arrival, he had a temperature of 98.7 degrees, pulse 82, respirations 16, blood pressure 206/92, saturating 95% on room air. GENERAL: This is a 49-year-old, male who is lying in the bed and answers questions appropriately. HEENT: Normocephalic, atraumatic. Normal ENT inspection. Oropharynx and nares are clear. Eyes: Pupils are equal, round, reactive to light and accommodation. Extraocular movements are intact. NECK: Normal inspection. Normal range of motion. LUNGS: Clear to auscultation bilaterally with equal lung expansion and chest wall movement. HEART: Regular rate and rhythm. No murmurs, rubs, or gallops. ABDOMEN: Soft. Nontender except to the left lower quadrant to palpation. Bowel sounds were hypoactive x4 quadrants. MUSCULOSKELETAL: He had 5/5 strength x4 extremities. NEUROLOGICAL: The cranial nerves 2-12 appear grossly intact. ASSESSMENT: 1. Acute diverticulitis. 2. Malignant hypertension. 3. End-stage renal disease with dialysis Thursday, Thursday, Thursday. 4. Diabetes type 2, uncontrolled with hyperglycemia. PLAN: He will be admitted to the medical unit, placed on telemetry. Placed on a clear liquid diet, diabetic. Pattern of blood sugars with sliding scale insulin, Zosyn 2.25 g IV q.6, Flagyl 500 mg IV q.8. Continue home medications as previously identified. We will consult nephrology for his hemodialysis on Thursday, Thursday, Thursday. We will recheck a CBC and BMP in the a.m. We will place him on gentle hydration of normal saline at 50 mL an hour. Further orders after seen by attending and b2b sales consultant. Dictated by JEFFERSON Osuna for Reza Dumont MD cc: JEFFERSON Osuna MD
[2019-12-14] MEDS ORDERED: NS 1,000 ML IV SCH (15:34)
[2019-12-14] MEDS ORDERED: VENTOLIN HFA INH PRN (15:34)
[2019-12-14] MEDS ORDERED: DILAUDID IV PRN (15:34)
[2019-12-14] MEDS ORDERED: FLAGYL 500 MG/NS 500 MG/100 ML IVPB IV SCH (15:34)
[2019-12-14] MEDS ORDERED: PATIENT'S OWN MED INH PRN (15:34)
[2019-12-14] MEDS ORDERED: TYLENOL PO PRN (15:34)
[2019-12-14] MEDS: ZOSYN 2.25 GM in NS 50 ML IV SCH (16:13)
[2019-12-14] MEDS: APRESOLINE IV PRN (16:14)
--- NOTE | 2019-12-14 17:21 | HISTORY AND PHYSICAL ---
ADDENDUM: The patient seen and examined by me [id number]. All the laboratory, vital signs and images were reviewed. The patient presented to the emergency department with a chief complaint of abdominal pain mostly at the level of the left lower quadrant that is been going for a few days, but he has been worse for 2 days. He noticed also a little bit of blood mixed with stools a couple days ago but not yesterday or today. We did a CT scan that showed acute diverticulitis of the sigmoid colon, he has been placed on Zosyn. Apparently, he was on levofloxacin as an outpatient to be taken every other day, but he is still with the pain and worsening of the condition. He is an end-stage renal disease patient and his last dialysis was today. His blood pressure was elevated but he did not take his medications today, so we will reassume his medications, and I will add hydralazine as needed. His abdomen is soft is tender to palpation mostly at the level of the left lower quadrant, but no signs of peritoneal irritation. Positive bowel sounds so far. Vital signs showed an increase of the blood pressure in the 200s. Laboratory showed a leukocytosis with neutrophilia and hyperglycemia. His lipase level is slightly elevated as well. Since he is a end-stage renal disease patient, I will put him on just a little bit of fluids, half NS at 30 mL/h, and I will re-evaluate this tomorrow. Like I said, he received dialysis today. I will put him on a clear liquid diet, but I do not know if he is able to tolerate that. I have placed this patient back on his home medications and as-needed medication for pain and blood pressure. Dr. Kurtz has been consulted because of his end-stage renal disease. We will monitor this patient closely. I agree with the rest of the nurse practitioner's assessment and plan. cc: Reza Dumont MD
[2019-12-14] MEDS ORDERED: ZOSYN 2.25 GM in NS 50 ML IV SCH (18:00)
[2019-12-14] MEDS: HUMALOG SUBQ SCH ×2 (18:30→19:46)
[2019-12-14] MEDS: NEURONTIN PO SCH (21:17)
[2019-12-14] MEDS: ZOFRAN IV PRN (21:17)
[2019-12-14] MEDS: 1/2 NS 1,000 ML IV SCH (21:18)
[2019-12-15] MEDS: COZAAR PO SCH ×2 (00:18→21:14)
[2019-12-15] MEDS: COREG PO SCH ×3 (00:19→21:14)
[2019-12-15] MEDS: NEURONTIN PO SCH ×3 (00:19→21:14)
[2019-12-15] MEDS: LEVEMIR SUBQ SCH ×2 (00:21→21:14)
[2019-12-15] MEDS: HUMALOG SUBQ SCH ×8 (00:21→21:15)
[2019-12-15] MEDS: APRESOLINE IV PRN (02:31)
[2019-12-15] MEDS: ZOFRAN IV PRN (02:31)
[2019-12-15] MEDS ORDERED: PHENERGAN IV PRN (02:48)
[2019-12-15] MEDS ORDERED: SODIUM CHLORIDE 0.9% INJ PRN (02:48)
[2019-12-15] MEDS: ZOSYN 2.25 GM in NS 50 ML IV SCH ×3 (04:15→15:52)
[2019-12-15 07:19] LABS: BASO# 0.11 X1000 (0.0-0.2); EOS# 0.11 X1000 (0.0-0.7); HEMATOCRIT 27.1 % (42.0-52.0); HEMOGLOBIN 8.9 g/dL (14.0-18.0); IMM GRAN# 0.02 X1000 (0.0-0.04); IMM GRAN% 0.2 % (0.0-0.5); LYMPH# 0.66 X1000 (1.2-3.4); MCH 30.5 PG (27-31); MCHC 32.8 g/dL (33-37); MCV 92.8 FL (81-99); MONO# 0.68 X1000 (0.11-0.59); MONO% 6.2 % (1.7-9.3); NEUT# 9.44 X1000 (1.4-6.5); NEUT% 85.6 % (42.2-75.2); PLT 220 X1000 (130-400); RBC 2.92 XMIL (4.7-6.1); RDW 14.9 % (11.5-14.5); WBC 11.02 X1000 (4.8-10.8)
[2019-12-15 07:46] LABS: CALCIUM 8.9 mg/dL (8.8-10.2); CREATININE 7.1 mg/dL (0.7-1.2); POTASSIUM 4.6 mmol/L (3.5-5.1)
[2019-12-15] MEDS: NORVASC PO SCH (09:13)
[2019-12-15] MEDS: MIRALAX PO SCH (09:35)
[2019-12-15] MEDS ORDERED: INSULIN PEN NEEDLES ONE (12:28)
--- NOTE | 2019-12-15 12:57 | PROGRESS NOTE ---
DATE: 12/15/2019 SUBJECTIVE: This patient is lying comfortably in bed. He is still complaining of abdominal pain, mostly at the level of the left lower quadrant. He is having some nausea today. CT of the abdomen showed diverticulitis but also, he seems to be constipated. I will start this patient on MiraLAX twice a day but I will probably use suppositories in the future, probably tomorrow if he is not having bowel movements. OBJECTIVE: Vital Signs: Temperature 97.6 degrees, pulse of 64, respiratory rate 16, blood pressure 148/71, oxygen saturation 98 on room air. HEENT: Head normocephalic. No trauma. PERRLA. Neck: Supple. No JVD. No masses. Central trachea. Chest: Clear to auscultation. No wheezing. No rales. Abdomen: Soft. Generalized tenderness to palpation, especially at the level of the left lower quadrant, with no signs of peritoneal irritation. Positive bowel sounds. Extremities: No edema, no clubbing, no cyanosis. Neurological Examination: The patient is awake and alert. He is oriented. Laboratory: WBC 11, hemoglobin 8.9, hematocrit 27.1, platelets 220,000. Sodium 132, potassium 4.6, chloride 91, bicarbonate 20, BUN 36, creatinine 7.1, glucose 379, calcium 8.9, hemoglobin A1c is 10. ASSESSMENT AND PLAN: 1. Acute diverticulitis. Continue with Zosyn renally-dosed. We will continue with the same management. WBC trending down. He is not having fever. 2. Uncontrolled type 2 diabetes with a hemoglobin A1c of 10. I will continue with the same management for now. He has not been eating too much because of nausea. 3. End-stage renal disease, on hemodialysis Thursday, Thursday, and Thursday. His last dialysis was done yesterday. 4. Hypertensive urgency. His blood pressure initially was in the 200s, now down to 140s. The problem probably was that he was not taking his medications yesterday, especially after dialysis, but seems to be stable now. 5. Nausea. We will continue with the same management. 6. Constipation. I have placed this patient on MiraLAX. If there is no bowel movement, probably I will start this patient also on suppositories in the morning. cc: Reza Dumont MD
--- NOTE | 2019-12-15 14:15 | NEPHROLOGY CONSULTATION ---
DATE: 12/15/2019 REASON FOR CONSULTATION: Evaluation and treatment. HISTORY OF PRESENT ILLNESS: Mr. Pastor is a 49-year-old, white male who is well known to us. He has CKD 5D, secondary to diabetes and hypertension. He has suffered at least 2 previous episodes of acute diverticulitis. He came to the emergency room on the evening of the with several days of progressive left lower quadrant pain. No melena. Some blood in his stool, however. No nausea or vomiting. No chills or fevers. Anorexia is present. Because of his symptoms he sought attention where he was evaluated with a CT that demonstrated sigmoid diverticulitis. No free air. He was admitted to the hospital and treated with Zosyn. He is symptomatically improved today though tender coordinator. He did receive his routine dialysis treatment yesterday prior to coming to the hospital. PAST MEDICAL HISTORY: As above. HOME MEDICATIONS: Include insulin, losartan, amlodipine, carvedilol, gabapentin, levofloxacin, albuterol, insulin. ALLERGIES: None. SOCIAL HISTORY: He is and lives with his . The chart relates no tobacco but I believe he continues to smoke. FAMILY HISTORY: Negative. REVIEW OF SYSTEMS: Negative. PHYSICAL EXAMINATION: Vital Signs: Blood pressure 148/71, heart rate 64, respirations 16, afebrile. General: He is a middle-aged man, no acute distress. Skin: Warm and dry. Conjunctivae are pink. Pupils are equal. Neck: Neck veins are not distended. Trachea is midline. Abdomen: Modestly tender. Extremities: No edema. IMPRESSION: Diverticulitis. PLAN: He will likely need a partial colectomy as this is his 3rd episode of diverticulitis. I agree with your antibiotic choices and no changes are made at this time. His routine medicines have been continued. Electrolytes/acid base in target. Hemoglobin has dropped some and we will observe. cc: Paul Kurtz MD
[2019-12-16] MEDS: MIRALAX PO SCH ×3 (01:26→21:44)
[2019-12-16] MEDS: ZOSYN 2.25 GM in NS 50 ML IV SCH ×2 (04:18→16:41)
[2019-12-16 06:51] LABS: BASO# 0.06 X1000 (0.0-0.2); BASO% 0.7 % (0.0-0.8); EOS# 0.44 X1000 (0.0-0.7); EOS% 5.4 % (0.0-10.0); HEMATOCRIT 25.2 % (42.0-52.0); HEMOGLOBIN 8.2 g/dL (14.0-18.0); IMM GRAN# 0.03 X1000 (0.0-0.04); IMM GRAN% 0.4 % (0.0-0.5); LYMPH# 1.38 X1000 (1.2-3.4); LYMPH% 16.8 % (20.5-51.1); MCH 29.9 PG (27-31); MCHC 32.5 g/dL (33-37); MONO# 0.68 X1000 (0.11-0.59); MONO% 8.3 % (1.7-9.3); NEUT% 68.4 % (42.2-75.2); PLT 244 X1000 (130-400); RBC 2.74 XMIL (4.7-6.1); RDW 14.9 % (11.5-14.5); WBC 8.19 X1000 (4.8-10.8)
[2019-12-16] MEDS: HUMALOG SUBQ SCH ×7 (07:01→21:43)
[2019-12-16 07:21] LABS: CALCIUM 8.3 mg/dL (8.8-10.2); CREATININE 9.1 mg/dL (0.7-1.2); POTASSIUM 3.9 mmol/L (3.5-5.1)
[2019-12-16] MEDS ORDERED: NS 2,000 ML MISC PRN (07:33)
[2019-12-16] MEDS: COREG PO SCH ×2 (12:32→21:43)
[2019-12-16] MEDS: NEURONTIN PO SCH ×2 (12:32→22:27)
[2019-12-16] MEDS: NORVASC PO SCH (12:33)
--- NOTE | 2019-12-16 14:36 | NEPHROLOGY PROGRESS NOTE ---
DATE: 12/16/2019 SUBJECTIVE: He is hungry. Minimal abdominal pain today. Minimal BM so far. OBJECTIVE: Vital Signs: Blood pressure 111/58, heart rate 69, respiration 18, afebrile. General: No acute distress. Skin: Warm and dry. Neck: Neck veins are not distended. Heart: Regular. No edema. IMPRESSION: 1. Chronic kidney disease 5d. He is receiving his routine outpatient dialysis treatment currently. 2. Hypertension, in target. 3. Diverticulitis. Continue intravenous antibiotics. I will advance his diet. cc: Paul Kurtz MD
--- NOTE | 2019-12-16 16:21 | PROGRESS NOTE ---
DATE: 12/16/2019 SUBJECTIVE: The patient reports feeling okay. Still some abdominal pain. OBJECTIVE: Vital Signs: Temperature 98.1 degrees, heart rate 70, respiratory rate 18, blood pressure 135/74, and O2 saturation 99% on room air. General Examination: This is a 49-year-old male lying in bed in no acute distress. Cardiovascular: S1 and S2 heard. No murmurs, gallops, or rubs. Regular rate and rhythm. Respiratory: Generalized tenderness to palpation in the left lower quadrant. No signs of peritoneal irritation. Bowel sounds present. No organomegaly. Extremities: No clubbing, cyanosis, or edema. Peripheral pulses present in both legs. Neurological: The patient alert and oriented x3. Moves 4 extremities. LABORATORY DATA: Reviewed. ASSESSMENT AND PLAN: 1. Acute diverticulitis. We will continue with Zosyn renally dosed. White cell count is completely back to normal. Not having any fever. We will continue to monitor. 2. Uncontrolled diabetes mellitus type 2. We will continue with same management. He is on sliding scale insulin and Accu-Chek before meals and also at bedtime. 3. End-stage renal disease on dialysis. The patient has dialysis today. We will continue to monitor. 4. Hypertensive urgency. Blood pressure is definitely much better controlled. We will continue with same management. 5. Constipation. That problem is resolved with MiraLAX. The patient has had at least 4 to 5 bowel movements. DISPOSITION: At this point we will keep this patient one more day and if he is feeling tomorrow okay, we will switch to 10 days of Levaquin and Flagyl. cc: Alec Breen MD
[2019-12-16] MEDS: 1/2 NS 1,000 ML IV SCH (16:41)
[2019-12-16] MEDS: LEVEMIR SUBQ SCH (21:43)
[2019-12-16] MEDS: COZAAR PO SCH (21:43)
[2019-12-17] MEDS: ZOSYN 2.25 GM in NS 50 ML IV SCH (04:32)
[2019-12-17] MEDS: HUMALOG SUBQ SCH ×2 (06:31→06:32)
[2019-12-17] MEDS: NEURONTIN PO SCH (09:20)
[2019-12-17] MEDS: COREG PO SCH (09:20)
[2019-12-17] MEDS: MIRALAX PO SCH (09:20)
[2019-12-17] MEDS: NORVASC PO SCH (09:20)
--- NOTE | 2019-12-17 11:33 | NEPHROLOGY PROGRESS NOTE ---
DATE: 12/17/2019 SUBJECTIVE: He is sitting up in the chair. He has been able to eat his last 2 meals without difficulty. Normal BM yesterday but no BM so far today. No nausea or vomiting. OBJECTIVE: Vital Signs: Blood pressure 162/67, heart rate 79, respirations 12, afebrile. General: No acute distress. Skin: Warm and dry. HEENT: Conjunctivae are pink. Neck: Neck veins are not distended. Heart: Regular. No gallops. Lungs: Equal. No crackles. Extremities: No edema, clubbing, or cyanosis. IMPRESSION: 1. Diverticulitis. He is tolerating p.o. and having bowel movements. Okay to discharge on oral antibiotics from my perspective. 2. Chronic kidney disease 5D. He will have his next routine dialysis treatment at the outpatient clinic on Thursday. 3. Electrolytes/acid base/hypertension/anemia. All acceptable but his hemoglobin has fallen moderately. We will recheck this prior to discharge. cc: Paul Kurtz MD
[2019-12-17 12:41] VITALS: BP 153/79
--- NOTE | 2019-12-17 15:36 | DISCHARGE SUMMARY ---
ADMISSION DATE: 12/14/2019 DISCHARGE DATE: 12/17/2019 ADMISSION DIAGNOSES: 1. Acute diverticulitis. 2. Malignant hypertension. 3. End-stage renal disease with dialysis Thursday, Thursday, Thursday. 4. Diabetes mellitus type 2 uncontrolled, hyperglycemia. DISCHARGE DIAGNOSES: 1. Acute diverticulitis. 2. Uncontrolled diabetes mellitus type 2. 3. End-stage renal disease on hemodialysis. 4. Hypertensive urgency. 5. Constipation. CONSULTATIONS: Dr. Kurtz. SURGERIES/PROCEDURES: None. HOSPITAL COURSE: Mr. Parvez Pastor is a 49-year-old male presented with complaints of generalized abdominal pain over the last few days prior to admission was worse in the left lower quadrant for at least 2 days. His white blood cell count was 16,000. He did have an elevated glucose at 359. A CT of this abdomen pelvis showed acute diverticulitis of the sigmoid colon so he is admitted for further treatment and evaluation. Dr. Kurtz was consulted as he does receive hemodialysis on Thursday, Thursday, Fridays for his diverticulitis. He was initiated on renal dosed Zosyn along with Flagyl and he was actually placed on a little bit of IV fluid hydration. Diabetes was found to be uncontrolled and a hemoglobin A1c of 10. He was placed on sliding scale insulin. He did have some nausea, constipation, was placed on MiraLAX he remained stable discharge home today. DISCHARGE VITAL SIGNS: Temperature 98.7 degrees, heart rate 67, respiratory rate 16, blood pressure 153/79, O2 saturation 98% on room air. DISCHARGE LAB DATA: White blood cells 8000, hemoglobin 10, hematocrit was 25 yesterday, hemoglobin was 10 today, platelet count 244,000. Sodium 136, potassium 3.9, BUN 45, creatinine is 9.1, glucose 312, hemoglobin A1c was 10.0, calcium 8.3, lipase 41. Acetone negative. Blood cultures negative. IMAGING: Abdominal pelvic CT acute diverticulitis of the sigmoid colon. EKG normal sinus rhythm, rate 86, QTc was elevated at 588. DISCHARGE MEDICATIONS: 1. Albuterol ProAir inhaled every 4 to 6 hours p.r.n. 2. Norvasc 10 mg p.o. daily. 3. [place] 5 one tab p.o. q.6 hours p.r.n. 4. Neurontin 300 mg p.o. twice daily. 5. MiraLAX 17 g p.o. twice daily. 6. Levaquin 500 mg p.o. every other day for 5 doses, he is to receive it after dialysis. 7. Flagyl 500 mg p.o. twice daily for 10 days. 8. Coreg 12.5 mg p.o. q.12 hours. 9. Lispro 30 units subcu a.c. 10. Levemir 15 units subcu nightly. 11. Cozaar 100 mg p.o. nightly. DISCHARGE DIET: Diabetic renal. PHYSICIAN FOLLOWUP: Dr. Kurtz and [facility]. DISCHARGE ACTIVITY: As tolerated but no driving while taking pain medication. DISCHARGE INSTRUCTIONS: If condition changes contact physician and/or return to the emergency department. Changes may include but not limited to shortness of breath, increased fatigue, excessive bleeding, unexplained weight loss or gain, unmanageable pain, signs or symptoms of infection, please take all antibiotics as prescribed. DISCHARGE DISPOSITION: Home with home health . Dictated by JEFFERSON Olmos for Alec Breen MD Addendum: Patient seen and examined by myself. Agree with JEFFERSON note. It reflects my assessment and plan. Patient is being discharged in stable condition. Will be seen by PCP in a week. cc: JEFFERSON Olmos MD [facility]
== END 2019-12-17 12:15 | disposition home health service (06) | DRG 391 ==
LOC: ED 10:47 → SUATTDRO 15:02 → EDIPHOLD 15:02 → 4N 20:37
PROVIDERS: ATTEND Internal Medicine